=== PATIENT | female | born 1985 | race Caucasian/White ===

== ENCOUNTER 2023-05-08 10:45 | Emergency (ER) | payer BC, MEDICAID, SELFPAY ==
[2023-05-08] VITALS (11 sets, daily range): BP systolic 102–144; BP diastolic 56–63; PULSE 62–81; RESP 13–24; TEMP 36.9–38.8; O2SAT 10–98; BMI 26.6
[2023-05-08 11:22] LABS: Basophils Percent Auto 0.3 % (0.2-2.0); Eosinophils Percent Auto 0.3 % (0.9-7.0); Hematocrit 41.2 % (36.0-48.0); Hemoglobin 14.1 g/dL (12.0-16.0); Immature Granulocytes Abs Auto 0.02 10^3/uL (0.00-0.03); Immature Granulocytes Pct Auto 0.3 % (0.0-0.5); Lymphocytes Absolute Auto 0.3 10^3/uL (1.2-3.8); Lymphocytes Percent Auto 4.6 % (20.5-60.0); Mean Corpuscular HGB Conc 34.2 g/dL (29.9-35.2); Mean Corpuscular Hemoglobin 31.2 pg (26.7-34.0); Mean Corpuscular Volume 91.2 fL (81.0-99.0); Mean Platelet Volume 9.1 fL (9.5-13.5); Monocytes Absolute Auto 0.3 10^3/uL (0.3-0.8); Monocytes Percent Auto 4.3 % (1.7-12.0); Neutrophils Absolute Auto 6.7 10^3/uL (1.4-6.5); Neutrophils Percent Auto 90.2 % (43.0-75.0); Platelet Count 242 10^3/uL (150-450); Red Blood Count 4.52 10^6/uL (4.20-5.40); Red Cell Distribution Width 12.3 % (11.0-15.0); White Blood Count 7.5 10^3/uL (4.0-11.0)
[2023-05-08] MEDS: 0.9 % SODIUM CHLORIDE 1,000 ML 999 ML IV (11:24)
[2023-05-08] MEDS: ONDANSETRON PF 4 MG/2 ML VIAL IV (11:24)
[2023-05-08 11:48] LABS: Alanine Aminotransferase 33 U/L (14-59); Albumin Globulin Ratio 0.9; Albumin Level 3.4 g/dL (3.4-5.0); Alkaline Phosphatase 50 U/L (46-116); Aspartate Amino Transferase 20 U/L (15-37); BUN Creatinine Ratio 16.4; Bilirubin Total 0.4 mg/dL (0.2-1.0); Calcium 8.6 mg/dL (8.5-10.1); Carbon Dioxide 22.8 mmol/L (21.0-32.0); Chloride 104 mmol/L (98-107); Estimated GFR (African America >60 (>=60); Estimated GFR (Non-African Ame >60 (>=60); Globulin 3.9 g/dL; Glucose 101 mg/dL (74-106); Potassium 3.8 mmol/L (3.5-5.1); Sodium 140 mmol/L (136-145); Total Protein 7.3 g/dL (6.4-8.2)
--- NOTE | 2023-05-08 12:17 | ED_ITS ---
HPI - General Adult General Chief complaint: Nausea/Vomiting/Diarrhea Stated complaint: MOUTH INFECTION, DIARRHEA, ALL OVER BODY PAIN Time Seen by Provider: 05/08/23 11:07 Source: patient Mode of arrival: Wheelchair Limitations: no limitations History of Present Illness HPI narrative: Patient is a 38-year-old female who is presenting with chief complaint of nausea, vomiting, diarrhea the started at 1:00 this morning. Patient's sister is at bedside. 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 Patient was working yesterday. Patient did not go to work today, she didn't work tomorrow as well. Patient has no headache, not lightheaded or dizzy. No chest pain or shortness of breath. Patient states that she is not . Patient has no urinary frequency, history of burning. Patient has had loose stools starting this morning. The sick contacts that she is aware of. No other acute complaints. . All systems are negative except as noted/marked. All systems reviewed and otherwise negative. . Nurses note and vital signs reviewed and patient is not hypoxic. General: The patient appears well and in no apparent distress. Patient is resting comfortably on cart. Patient is not toxic, lethargic, or listless Skin: Warm, dry, no pallor noted. There is no rash noted. No petechiae, purpura. Head: Normocephalic, atraumatic Eye: Normal conjunctiva, no drainage, EOMI. PERRL Ears, Nose, Mouth, and Throat: oral mucosa is moist. Nares patent. Mouth without vesicles. Cardiovascular: Regular Rate and Rhythm, no murmur, gallop, rub Respiratory: Patient is in no distress, no accessory muscle use, lungs are clear to auscultation, no wheezing, rales or rhonchi Back: non-tender, no CVA tenderness bilaterally to percussion. No CT LS midline pain GI: soft, Mild diffuse tenderness to palpation, no masses appreciated. No rebound, guarding, or rigidity noted. No flank pain bilateral, No distention. No peritoneal signs, no flank pain bilateral. Musculoskeletal: Patient has full range of motion of all of the extremities, no motor, sensory, or focal neurological deficits Neurological: A&O x3, normal speech Psychiatric: Cooperative Related Data Home Medications Medication Instructions Recorded Confirmed flecainide 150 mg tablet 150 mg PO Q12H 05/08/23 05/08/23 metoprolol succinate 50 mg 25 mg PO Q12H 05/08/23 05/08/23 tablet,extended release 24 hr norethindrone 1 mg-ethinyl 1 tab PO DAILY 05/08/23 05/08/23 estradiol 20 mcg (21)-iron 75 mg (7) tablet (11/09 (28)) Previous Rx's Medication Instructions Recorded dicyclomine 20 mg tablet 20 mg PO BID PRN abdominal pain #7 05/08/23 tabs ondansetron 4 mg disintegrating 4 mg PO Q8H PRN nausea and 05/08/23 tablet vomiting 3 days #7 tabs Allergies Allergy/AdvReac Type Severity Reaction Status Date / Time diphenhydramine Allergy Severe Swelling Verified 05/08/23 10:56 [From Harry] of the Eye [facility] Social History Smoking status: Heavy tobacco smoker Exam Constitutional Vital Signs, click to edit/add: Last Vital Signs Temp 98.4 F 05/08/23 10:52 Pulse 73 05/08/23 12:15 Resp 13 05/08/23 12:15 BP 102/56 L 05/08/23 12:22 Pulse Ox 98 05/08/23 12:22 O2 Del Method Room Air 05/08/23 10:52 Course Vital Signs Vital signs: Vital Signs Temperature 98.4 F 05/08/23 10:52 Pulse Rate 81 05/08/23 10:52 Respiratory Rate 20 05/08/23 10:52 Blood Pressure 144/63 H 05/08/23 10:52 Pulse Oximetry 10 L 05/08/23 10:52 Oxygen Delivery Method Room Air 05/08/23 10:52 Temperature 98.4 F 05/08/23 10:52 Pulse Rate 73 05/08/23 12:15 Respiratory Rate 13 05/08/23 12:15 Blood Pressure 102/56 L 05/08/23 12:22 Pulse Oximetry 98 05/08/23 12:22 Oxygen Delivery Method Room Air 05/08/23 10:52 Medical Decision Making MDM Narrative Medical decision making narrative: Patient feels better after 1 L of IV fluids and IV Zofran. Patient will be given a work note for today and tomorrow. Patient was sent on prescription for Zofran and Bentyl. Patient will continue increase fluids. Patient was educated on appendicitis and gallbladder disease. If patient develops intractable nausea, vomiting, pain, or any other acute complaints, Patient will return back to the ER.. No questions at discharge Lab Data Lab results reviewed: Yes I reviewed the patient's lab results Labs: Lab Results 05/08/23 05/08/23 Range/Units 11:00 12:20 WBC 7.5 (4.0-11.0) 10^3/uL RBC 4.52 (4.20-5.40) 10^6/uL Hgb 14.1 (12.0-16.0) g/dL Hct 41.2 (36.0-48.0) % MCV 91.2 (81.0-99.0) fL MCH 31.2 (26.7-34.0) pg MCHC 34.2 (29.9-35.2) g/dL RDW 12.3 (11.0-15.0) % Plt Count 242 (150-450) 10^3/uL MPV 9.1 L (9.5-13.5) fL Neut % (Auto) 90.2 H (43.0-75.0) % Lymph % (Auto) 4.6 L (20.5-60.0) % [place] % (Auto) 4.3 (1.7-12.0) % Eos % (Auto) 0.3 L (0.9-7.0) % Baso % (Auto) 0.3 (0.2-2.0) % Neut # (Auto) 6.7 H (1.4-6.5) 10^3/uL Lymph # (Auto) 0.3 L (1.2-3.8) 10^3/uL [place] # (Auto) 0.3 (0.3-0.8) 10^3/uL Eos # (Auto) 0.0 (0.0-0.7) 10^3/uL Baso # (Auto) 0.0 (0.0-0.1) 10^3/uL Abs Immat Gran (auto) 0.02 (0.00-0.03) 10^3/uL Imm/Tot Granulo (auto) 0.3 (0.0-0.5) % Sodium 140 (136-145) mmol/L Potassium 3.8 (3.5-5.1) mmol/L Chloride 104 (98-107) mmol/L Carbon Dioxide 22.8 (21.0-32.0) mmol/L Anion Gap 17.0 BUN 11.0 (7.0-18.0) mg/dL Creatinine 0.67 (0.55-1.02) mg/dL Est GFR ( Amer) >60 (>=60) Est GFR (Non-Af Amer) >60 (>=60) BUN/Creatinine Ratio 16.4 Glucose 101 (74-106) mg/dL Calcium 8.6 (8.5-10.1) mg/dL Total Bilirubin 0.4 (0.2-1.0) mg/dL AST 20 (15-37) U/L ALT 33 (14-59) U/L Alkaline Phosphatase 50 (46-116) U/L Total Protein 7.3 (6.4-8.2) g/dL Albumin 3.4 (3.4-5.0) g/dL Globulin 3.9 g/dL Albumin/Globulin Ratio 0.9 Lipase 65.0 L (73.0-393.0) U/L Urine Color Yellow (YELLOW) Urine Clarity Clear (CLEAR) Urine pH 5.5 (5.0-9.0) Ur Specific [place] >=1.030 A (1.005-1.025) Urine Protein Negative (NEG/TRACE) mg/dL Urine Glucose (UA) Negative (NEGATIVE) mg/dL Urine Ketones 15 A (NEGATIVE) mg/dL Urine Occult Blood Negative (NEGATIVE) Urine Nitrite Negative (NEGATIVE) Urine Bilirubin Negative (NEGATIVE) Urine Urobilinogen 0.2 (0.2-1.0) EU/dL Ur Leukocyte Esterase Negative (NEGATIVE) Urine RBC 0-2 (0-2) #/HPF Urine WBC 0-2 A (NONE SEEN) #/HPF Ur Squamous Epith Cells Moderate A (NONE/RARE) #/LPF Urine Crystals None seen (None Seen) #/HPF Urine Bacteria Moderate A (NONE SEEN) #/HPF Urine Casts None seen (NONE SEEN) #/LPF Urine Mucus None seen (NONE SEEN) Urine cultures pending Discharge Plan Discharge Chief Complaint: Nausea/Vomiting/Diarrhea Clinical Impression: Vomiting and diarrhea, Dehydration Patient Disposition: Home, Self-Care Prescriptions / Home Meds: New ondansetron 4 mg tablet,disintegrating 4 mg PO Q8H PRN (Reason: nausea and vomiting) 3 Days Qty: 7 0RF dicyclomine 20 mg tablet 20 mg PO BID PRN (Reason: abdominal pain) Qty: 7 0RF No Action flecainide 150 mg tablet 150 mg PO Q12H metoprolol succinate 50 mg tablet extended release 24 hr 25 mg PO Q12H norethindrone-e.estradiol-iron [Junel FE 11/09 (28)] 1 mg-20 mcg (21)/75 mg (7) tablet 1 tab PO DAILY Instructions: Dehydration (ED), Acute Nausea and Vomiting (ED), Acute Diarrhea (ED) Additional Instructions: Continue increase fluids at home, including Gatorade, prior to her water. Use Zofran and Bentyl as needed. Work note given Stand Alone Forms: Work/School Release, Portal Instructions Referrals: Physician,Non-Staff, MD [Primary Care Provider] - 1 week
[2023-05-08 12:41] LABS: Bilirubin Urine NEGATIVE (NEGATIVE); Blood Urine NEGATIVE (NEGATIVE); Clarity Urine CLEAR (CLEAR); Color Urine YELLOW (YELLOW); Glucose Urine UA NEGATIVE (NEGATIVE); Ketones Urine 15 mg/dL (NEGATIVE); Leukocyte Esterase Urine NEGATIVE (NEGATIVE); Nitrite Urine NEGATIVE (NEGATIVE); Protein Urine NEGATIVE (NEG/TRACE); Specific Gravity Urine >=1.030 (1.005-1.025); Urobilinogen Urine 0.2 EU/dL (0.2-1.0); pH Urine 5.5 (5.0-9.0)
[2023-05-08 12:59] LABS: Bacteria Urine MODERATE #/HPF (NONE SEEN); Cast Seen? NONE SEEN #/LPF (NONE SEEN); Crystals Seen? None Seen #/HPF (None Seen); Mucus Urine NONE SEEN (NONE SEEN); RBC Urine 0-2 #/HPF (0-2); Squamous Epithelial Cell Urine MODERATE #/LPF (NONE/RARE); WBC Urine 0-2 #/HPF (NONE SEEN)
== END 2023-05-08 13:54 | disposition home or self-care (01) ==
PROVIDERS: Emergency Provider Emergency Medicine
DX: E86.0 Dehydration (principal); R19.7 Diarrhea, unspecified; R11.10 Vomiting, unspecified; Z79.899 Other long term (current) drug therapy; F17.210 Nicotine dependence, cigarettes, uncomplicated
CPT/HCPCS: 36415; 80053; 81001; 83690; 85025; 87086; 96374; 99284

== ENCOUNTER 2023-05-28 17:07 | Emergency (ER) | payer BC, MEDICAID, SELFPAY ==
[2023-05-28 17:10] VITALS: BP 114/63; PULSE 56; RESP 20; TEMP 36.9; O2SAT 100; BMI 25.7
--- NOTE | 2023-05-28 17:29 | ED.DENTAL1 ---
HPI - Dental/Oral General Chief complaint: Dental/Oral Stated complaint: DENTAL PAIN Time Seen by Provider: 05/28/23 17:10 Source: patient Mode of arrival: walk-in Limitations: no limitations History of Present Illness HPI Narrative: patient is a 38-year-old female with a history of dental caries who presents to the emergency department for pain in the teeth of the maxilla for the last month. Patient was seen in this emergency department for an unrelated complaint two weeks ago that does not appear to have mentioned this at that time. She denies any injury or trauma to the teeth. She believes that she may have had drainage from the teeth because she has had a foul taste in her mouth. She denies fevers, vomiting. She is not concerned for . Related Data Home Medications Medication Instructions Recorded Confirmed flecainide 150 mg tablet 150 mg PO Q12H 05/08/23 05/08/23 metoprolol succinate 50 mg 25 mg PO Q12H 05/08/23 05/08/23 tablet,extended release 24 hr norethindrone 1 mg-ethinyl 1 tab PO DAILY 05/08/23 05/08/23 estradiol 20 mcg (21)-iron 75 mg (7) tablet (11/09 (28)) Previous Rx's Medication Instructions Recorded dicyclomine 20 mg tablet 20 mg PO BID PRN abdominal pain #7 05/08/23 tabs ondansetron 4 mg disintegrating 4 mg PO Q8H PRN nausea and 05/08/23 tablet vomiting 3 days #7 tabs amoxicillin 500 mg capsule 500 mg PO TID 10 days #30 caps 05/28/23 ketorolac 10 mg tablet 10 mg PO TID PRN pain #10 tabs 05/28/23 promethazine 25 mg tablet 25 mg PO Q6H PRN nausea and 05/28/23 vomiting #12 tabs Allergies Allergy/AdvReac Type Severity Reaction Status Date / Time diphenhydramine Allergy Severe Swelling Verified 05/08/23 10:56 [From Harry] of the Eye Review of Systems ROS Constitutional Denies: fever Ears, nose, mouth, and throat Denies: throat pain Cardiovascular Denies: chest pain Respiratory Denies: shortness of breath or cough Gastrointestinal Denies: nausea or vomiting Musculoskeletal Denies: back pain or neck pain Integumentary/Breast Denies: rash Neurological Denies: headache PFSH [facility] Social History Smoking status: Former smoker Exam Narrative Exam Narrative: Gen.: Awake, alert, in no distress Head: Normocephalic, atraumatic ENT: Moist mucous membranes, all of the teeth in the maxilla are absent except for tooth #9, tooth #10 and tooth #11. Tooth #10 and tooth #11 with significant dental caries and erosion to the gumline. No visible dental abscess noted. No significant dental caries of the mandible, no redness or swelling under the tongue. Clear speech, no trismus or drooling. Respiratory: No respiratory distress Extremities: Moves extremities equally Psych: Normal mood and affect Neuro: No focal neuro deficit Skin: Warm, dry, intact Constitutional Vital Signs, click to edit/add: Last Vital Signs Temp 98.4 F 05/28/23 17:10 Pulse 56 L 05/28/23 17:10 Resp 20 05/28/23 17:10 BP 114/63 05/28/23 17:10 Pulse Ox 100 05/28/23 17:10 O2 Del Method Room Air 05/28/23 17:10 Course Vital Signs Vital signs: Vital Signs Temperature 98.4 F 05/28/23 17:10 Pulse Rate 56 L 05/28/23 17:10 Respiratory Rate 20 05/28/23 17:10 Blood Pressure 114/63 05/28/23 17:10 Pulse Oximetry 100 05/28/23 17:10 Oxygen Delivery Method Room Air 05/28/23 17:10 Temperature 98.4 F 05/28/23 17:10 Pulse Rate 56 L 05/28/23 17:10 Respiratory Rate 20 05/28/23 17:10 Blood Pressure 114/63 05/28/23 17:10 Pulse Oximetry 100 05/28/23 17:10 Oxygen Delivery Method Room Air 05/28/23 17:10 MDM - Dental/Oral MDM Narrative Medical decision making narrative: exam is consistent with dental pain, dental caries. Patient placed on an antibiotic if she states her pain seems to be getting worse in the last several days. No evidence of Shivam angina on exam. Vital signs stable and the patient is discharged home with topical analgesia, NSAIDs and antibiotics. She is given a referral to other dental clinics as she states her dentist cannot see her for several months. Return to the Emergency Room if symptoms change or worsen. Medical Records Attestation: I reviewed the patient's medical records. Discharge Plan Discharge Chief Complaint: Dental/Oral Clinical Impression: Dental caries, Toothache Patient Disposition: Home, Self-Care Time of Disposition Decision: 17:21 Condition: Good Prescriptions / Home Meds: New amoxicillin 500 mg capsule 500 mg PO TID 10 Days Qty: 30 0RF ketorolac 10 mg tablet 10 mg PO TID PRN (Reason: pain) Qty: 10 0RF promethazine 25 mg tablet 25 mg PO Q6H PRN (Reason: nausea and vomiting) Qty: 12 0RF No Action flecainide 150 mg tablet 150 mg PO Q12H metoprolol succinate 50 mg tablet extended release 24 hr 25 mg PO Q12H norethindrone-e.estradiol-iron [11/09 (28)] 1 mg-20 mcg (21)/75 mg (7) tablet 1 tab PO DAILY ondansetron 4 mg tablet,disintegrating 4 mg PO Q8H PRN (Reason: nausea and vomiting) 3 Days Qty: 7 0RF dicyclomine 20 mg tablet 20 mg PO BID PRN (Reason: abdominal pain) Qty: 7 0RF Instructions: Cavity Preventive (For the teeth or gums), Toothache (ED) Stand Alone Forms: Portal Instructions Referrals: Physician,Non-Staff, MD [Primary Care Provider] - 1 week
[2023-05-28] MEDS: BENZOCAINE 30 ML, lidocaine HCL 15 ML MM (17:37)
== END 2023-05-28 17:39 | disposition home or self-care (01) ==
PROVIDERS: Emergency Provider Emergency Medicine
DX: K02.9 Dental caries, unspecified (principal); K08.89 Other specified disorders of teeth and supporting structures; Z79.899 Other long term (current) drug therapy
CPT/HCPCS: 99283

== ENCOUNTER 2023-06-23 06:39 | Emergency (ER) | payer BC, MEDICAID, SELFPAY ==
[2023-06-23 06:43] VITALS: BP 124/75; PULSE 63; RESP 16; TEMP 36.6; O2SAT 99; BMI 26.2
[2023-06-23 07:12] LABS: Bilirubin Urine NEGATIVE (NEGATIVE); Blood Urine MODERATE (NEGATIVE); Clarity Urine SL CLOUDY (CLEAR); Color Urine LT. YELLOW (YELLOW); Glucose Urine UA NEGATIVE (NEGATIVE); Ketones Urine NEGATIVE (NEGATIVE); Leukocyte Esterase Urine MODERATE (NEGATIVE); Nitrite Urine NEGATIVE (NEGATIVE); Protein Urine NEGATIVE (NEG/TRACE); Specific Gravity Urine 1.025 (1.005-1.025); Urobilinogen Urine 0.2 EU/dL (0.2-1.0)
[2023-06-23 07:15] LABS: Urine Microscopic Indicated YES
[2023-06-23 07:21] LABS: WBC Urine 20-50 #/HPF (NONE SEEN)
[2023-06-23 07:22] LABS: Bacteria Urine SMALL #/HPF (NONE SEEN); Cast Seen? NONE SEEN #/LPF (NONE SEEN); Crystals Seen? None Seen #/HPF (None Seen); Mucus Urine NONE SEEN (NONE SEEN); Squamous Epithelial Cell Urine RARE #/LPF (NONE/RARE); Urine Culture Indicated YES
--- NOTE | 2023-06-23 07:25 | ED_ITS ---
HPI - Female Genitourinary General Chief complaint: Urogenital-Female Stated complaint: UTI Time Seen by Provider: 06/23/23 06:55 Source: patient Mode of arrival: walk-in Limitations: no limitations History of Present Illness HPI Narrative: patient presents with urinary symptoms - burning/dysuria, sometimes passing small amounts, increased frequency - indicative of potential urinary tract infection. Patient was diagnosed with UTI and placed on antibiotics a few weeks ago. No fever or chills, No vomiting or diarrhea. No flank pain. Related Data Home Medications Medication Instructions Recorded Confirmed flecainide 150 mg tablet 150 mg PO Q12H 05/08/23 06/23/23 metoprolol succinate 50 mg 25 mg PO Q12H 05/08/23 06/23/23 tablet,extended release 24 hr norethindrone 1 mg-ethinyl 1 tab PO DAILY 05/08/23 06/23/23 estradiol 20 mcg (21)-iron 75 mg (7) tablet (11/09 (28)) Previous Rx's Medication Instructions Recorded dicyclomine 20 mg tablet 20 mg PO BID PRN abdominal pain #7 05/08/23 tabs ondansetron 4 mg disintegrating 4 mg PO Q8H PRN nausea and 05/08/23 tablet vomiting 3 days #7 tabs amoxicillin 500 mg capsule 500 mg PO TID 10 days #30 caps 05/28/23 ketorolac 10 mg tablet 10 mg PO TID PRN pain #10 tabs 05/28/23 promethazine 25 mg tablet 25 mg PO Q6H PRN nausea and 05/28/23 vomiting #12 tabs ciprofloxacin HCl 500 mg tablet 500 mg PO BID #14 tabs 06/23/23 (Cipro) phenazopyridine 200 mg tablet 200 mg PO Q8H PRN dysuria #9 tabs 06/23/23 (Pyridium) Allergies Allergy/AdvReac Type Severity Reaction Status Date / Time diphenhydramine Allergy Severe Swelling Verified 06/23/23 06:53 [From Harry] of the Eye [facility] Medical History (Updated 06/23/23 @ 07:41 by Artie Caraballo) Surgical History (Updated 06/23/23 @ 06:54 by Jaskaran Rajput) Social History Smoking status: Former smoker Exam Narrative Exam Narrative: Nurses notes and vital signs reviewed and patient is not hypoxic. afebrile General: Well-appearing and in no apparent distress. Skin: Warm, dry, no pallor noted. No rash. Head: Normocephalic, atraumatic. Eye: Pupils are equal, round and EOMI. No scleral icterus. Cardiovascular: Regular Rate and Rhythm without murmur, gallop or rub. Respiratory: No accessory muscle use or respiratory distress. Lungs are clear to auscultation, no wheezing, rales or rhonchi Back: No CVA tenderness Musculoskeletal: normal ROM GI: Abdomen is soft, non-distended. Normal bowel sounds. Mild suprapubic tenderness to palpation. No rebound, guarding, or rigidity noted. Neurological: A&O x4. No cranial nerve dysfunction observed. No truncal ataxia. Moves all extremities. Sensation intact. Psychiatric: Cooperative and interactive. Normal mood and affect. Constitutional Vital Signs, click to edit/add: Last Vital Signs Temp 98 F 06/23/23 06:43 Pulse 63 06/23/23 06:43 Resp 16 06/23/23 06:43 BP 124/75 06/23/23 06:43 Pulse Ox 99 06/23/23 06:43 O2 Del Method Room Air 06/23/23 06:43 Course Vital Signs Vital signs: Vital Signs Temperature 98 F 06/23/23 06:43 Pulse Rate 63 06/23/23 06:43 Respiratory Rate 16 06/23/23 06:43 Blood Pressure 124/75 06/23/23 06:43 Pulse Oximetry 99 06/23/23 06:43 Oxygen Delivery Method Room Air 06/23/23 06:43 Temperature 98 F 06/23/23 06:43 Pulse Rate 63 06/23/23 06:43 Respiratory Rate 16 06/23/23 06:43 Blood Pressure 124/75 06/23/23 06:43 Pulse Oximetry 99 06/23/23 06:43 Oxygen Delivery Method Room Air 06/23/23 06:43 MDM - Female Genitourinary MDM Narrative Medical decision making narrative: Urine sent for testing. She does not have an acute urinary tract infection. Results explained to the patient she was discharged home with a prescription for ciprofloxacin and for Pyridium. She is to follow-up with her primary care provider. We will evaluate the culture and if there is resistance to ciprofloxacin, we will notify her of the need for change. Lab Data Attestation: I reviewed the patient's lab results. Labs: Lab Results 06/23/23 Range/Units 06:45 Urine Color Lt. yellow (YELLOW) Urine Clarity Sl cloudy (CLEAR) Urine pH 6.0 (5.0-9.0) Ur Specific [place] 1.025 (1.005-1.025) Urine Protein Negative (NEG/TRACE) mg/dL Urine Glucose (UA) Negative (NEGATIVE) mg/dL Urine Ketones Negative (NEGATIVE) mg/dL Urine Occult Blood Moderate A (NEGATIVE) Urine Nitrite Negative (NEGATIVE) Urine Bilirubin Negative (NEGATIVE) Urine Urobilinogen 0.2 (0.2-1.0) EU/dL Ur Leukocyte Esterase Moderate A (NEGATIVE) Urine RBC 10-20 A (0-2) #/HPF Urine WBC 20-50 A (NONE SEEN) #/HPF Ur Squamous Epith Cells Rare (NONE/RARE) #/LPF Urine Crystals None seen (None Seen) #/HPF Urine Bacteria Small A (NONE SEEN) #/HPF Urine Casts None seen (NONE SEEN) #/LPF Urine Mucus None seen (NONE SEEN) Ur Culture Indicated? Yes Discharge Plan Discharge Chief Complaint: Urogenital-Female Clinical Impression: Urinary tract infection Patient Disposition: Home, Self-Care Time of Disposition Decision: 07:41 Prescriptions / Home Meds: New ciprofloxacin HCl [Cipro] 500 mg tablet 500 mg PO BID Qty: 14 0RF phenazopyridine [Pyridium] 200 mg tablet 200 mg PO Q8H PRN (Reason: dysuria) Qty: 9 0RF No Action amoxicillin 500 mg capsule 500 mg PO TID 10 Days Qty: 30 0RF ketorolac 10 mg tablet 10 mg PO TID PRN (Reason: pain) Qty: 10 0RF promethazine 25 mg tablet 25 mg PO Q6H PRN (Reason: nausea and vomiting) Qty: 12 0RF flecainide 150 mg tablet 150 mg PO Q12H metoprolol succinate 50 mg tablet extended release 24 hr 25 mg PO Q12H norethindrone-e.estradiol-iron [Junel FE 11/09 (28)] 1 mg-20 mcg (21)/75 mg (7) tablet 1 tab PO DAILY ondansetron 4 mg tablet,disintegrating 4 mg PO Q8H PRN (Reason: nausea and vomiting) 3 Days Qty: 7 0RF dicyclomine 20 mg tablet 20 mg PO BID PRN (Reason: abdominal pain) Qty: 7 0RF Instructions: Urinary Tract Infection in Women (ED) Stand Alone Forms: Portal Instructions Referrals: Physician,Non-Staff, MD [Primary Care Provider] - 1 week
== END 2023-06-23 07:49 | disposition home or self-care (01) ==
PROVIDERS: Emergency Provider Emergency Medicine
DX: N39.0 Urinary tract infection, site not specified (principal); Z79.899 Other long term (current) drug therapy; Z87.891 Personal history of nicotine dependence
CPT/HCPCS: 81001; 87086; 87150; 87186; 99283

== ENCOUNTER 2023-08-08 16:06 | Emergency (ER) | payer BC, MEDICAID, SELFPAY ==
[2023-08-08 16:11] VITALS: BP 130/74; PULSE 74; RESP 20; TEMP 36.6; O2SAT 100; BMI 27.6
--- NOTE | 2023-08-08 16:22 | ED.URI1 ---
HPI - URI/Sore Throat General Chief Complaint: Upper Respiratory Infection Stated Complaint: congestion, sob Time Seen by Provider: 08/08/23 16:10 Source: patient Limitations: no limitations History of Present Illness HPI Narrative: 38-year-old female presents for a cough. She's had it for a few days and she is coughing up some thick brown to yellow phlegm. No hemoptysis or fever. She does not have history of asthma. She smokes occasionally. Related Data Home Medications Medication Instructions Recorded Confirmed flecainide 150 mg tablet 150 mg PO Q12H 05/08/23 06/23/23 metoprolol succinate 50 mg 25 mg PO Q12H 05/08/23 06/23/23 tablet,extended release 24 hr norethindrone 1 mg-ethinyl 1 tab PO DAILY 05/08/23 06/23/23 estradiol 20 mcg (21)-iron 75 mg (7) tablet (11/09 (28)) Previous Rx's Medication Instructions Recorded dicyclomine 20 mg tablet 20 mg PO BID PRN abdominal pain #7 05/08/23 tabs ondansetron 4 mg disintegrating 4 mg PO Q8H PRN nausea and 05/08/23 tablet vomiting 3 days #7 tabs amoxicillin 500 mg capsule 500 mg PO TID 10 days #30 caps 05/28/23 ketorolac 10 mg tablet 10 mg PO TID PRN pain #10 tabs 05/28/23 promethazine 25 mg tablet 25 mg PO Q6H PRN nausea and 05/28/23 vomiting #12 tabs ciprofloxacin HCl 500 mg tablet 500 mg PO BID #14 tabs 06/23/23 (Cipro) phenazopyridine 200 mg tablet 200 mg PO Q8H PRN dysuria #9 tabs 06/23/23 (Pyridium) benzonatate 100 mg capsule 100 mg PO TID PRN cough #20 caps 08/08/23 sulfamethoxazole 800 1 tab PO BID 10 days #20 tabs 08/08/23 mg-trimethoprim 160 mg tablet (Bactrim DS) Allergies Allergy/AdvReac Type Severity Reaction Status Date / Time diphenhydramine Allergy Severe Swelling Verified 06/23/23 06:53 [From Benadernestinal] of the Eye Review of Systems ROS Narrative A ten point review of systems is negative except as noted above. PFSH PFSH Medical History (Updated 08/08/23 @ 17:24 by Wade Rojas MD) Cardiac arrhythmia ?I49.9 - Cardiac arrhythmia, unspecified (ICD-10) Heart murmur ?R01.1 - Cardiac murmur, unspecified (ICD-10) Surgical History (Updated 06/23/23 @ 06:54 by Jaskaran Rajput) History of radiofrequency ablation procedure for cardiac arrhythmia ?Z98.890 - Other specified postprocedural states (ICD-10) Social History Smoking status: Light tobacco smoker Exam Narrative Exam Narrative: Nurses note and vital signs reviewed and patient is not hypoxic. General: The patient appears well and in no apparent distress. Patient is resting comfortably on cart. Skin: Warm, dry, no pallor noted. There is no rash noted. Head: Normocephalic, atraumatic Eye: Normal conjunctiva, no drainage Ears, Nose, Mouth, and Throat: oral mucosa is moist. Nares patent. Cardiovascular: Regular Rate and Rhythm Respiratory: Patient is in no distress, no accessory muscle use, lungs are clear to auscultation, no wheezing, rales or rhonchi Back: non-tender GI: soft and nontender Musculoskeletal: The patient has no evidence of calf tenderness, no pitting edema, symmetrical pulses noted bilaterally Neurological: A&O, normal speech Psychiatric: Cooperative Constitutional Vital Signs, click to edit/add: Last Vital Signs Temp 98 F 08/08/23 16:11 Pulse 74 08/08/23 16:11 Resp 20 08/08/23 16:11 BP 130/74 08/08/23 16:11 Pulse Ox 100 08/08/23 16:11 O2 Del Method Room Air 08/08/23 16:11 Course Vital Signs Vital signs: Vital Signs Temperature 98 F 08/08/23 16:11 Pulse Rate 74 08/08/23 16:11 Respiratory Rate 20 08/08/23 16:11 Blood Pressure 130/74 08/08/23 16:11 Pulse Oximetry 100 08/08/23 16:11 Oxygen Delivery Method Room Air 08/08/23 16:11 Temperature 98 F 08/08/23 16:11 Pulse Rate 74 08/08/23 16:11 Respiratory Rate 20 08/08/23 16:11 Blood Pressure 130/74 08/08/23 16:11 Pulse Oximetry 100 08/08/23 16:11 Oxygen Delivery Method Room Air 08/08/23 16:11 MDM - URI/Sore Throat MDM Narrative Medical decision making narrative: chest x-ray is negative per radiologist and she's treated with Bactrim and Tessalon. Treatment diagnosis and follow-up were discussed with the patient. Differential Diagnosis Differential diagnosis: Likely upper respiratory infection, viral infection and other (pneumonia) Imaging Data Chest x-ray: Radiologist's impression: Procedure: XR chest 1V EXAMINATION: XR chest 1V HISTORY: Cough COMPARISON: Chest x-ray 11/29/2012 TECHNIQUE: Portable chest FINDINGS: The lung parenchyma is free of consolidation or infiltrate. No pneumothorax or pleural effusion. The cardiac, mediastinal and hilar contours are normal. The visualized osseous structures exhibit no gross abnormality. IMPRESSION: No acute cardiopulmonary abnormality. Electronically authenticated by: JL HERNANDES Date: 08/08/2023 16: Discharge Plan Discharge Chief Complaint: Upper Respiratory Infection Clinical Impression: Upper respiratory infection Patient Disposition: Home, Self-Care Time of Disposition Decision: 17:23 Condition: Good Mode of Transportation: Private Vehicle Prescriptions / Home Meds: New sulfamethoxazole-trimethoprim [Bactrim DS] 800-160 mg tablet 1 tab PO BID 10 Days Qty: 20 0RF benzonatate 100 mg capsule 100 mg PO TID PRN (Reason: cough) Qty: 20 0RF No Action amoxicillin 500 mg capsule 500 mg PO TID 10 Days Qty: 30 0RF ketorolac 10 mg tablet 10 mg PO TID PRN (Reason: pain) Qty: 10 0RF promethazine 25 mg tablet 25 mg PO Q6H PRN (Reason: nausea and vomiting) Qty: 12 0RF ciprofloxacin HCl [Cipro] 500 mg tablet 500 mg PO BID Qty: 14 0RF phenazopyridine [Pyridium] 200 mg tablet 200 mg PO Q8H PRN (Reason: dysuria) Qty: 9 0RF flecainide 150 mg tablet 150 mg PO Q12H metoprolol succinate 50 mg tablet extended release 24 hr 25 mg PO Q12H norethindrone-e.estradiol-iron [Junel FE 11/09 (28)] 1 mg-20 mcg (21)/75 mg (7) tablet 1 tab PO DAILY ondansetron 4 mg tablet,disintegrating 4 mg PO Q8H PRN (Reason: nausea and vomiting) 3 Days Qty: 7 0RF dicyclomine 20 mg tablet 20 mg PO BID PRN (Reason: abdominal pain) Qty: 7 0RF Instructions: Upper Respiratory Infection (ED) Stand Alone Forms: Portal Instructions Referrals: Physician,Non-Staff, MD [Primary Care Provider] - 1 week
--- NOTE | 2023-08-08 16:32 | XR_ITS ---
The [address] [address] Patient Name: KSENIA SHANKAR MRN: [id number] date: 1985 Sex: F Assigned Patient Location: ER Current Patient Location: ER Accession/Order Number: [id number] Exam Date: 08/08/2023 16:28 Report Date: 08/08/2023 16:42 At the request of: GOMEZ YARBROUGH Procedure: XR chest 1V EXAMINATION: XR chest 1V HISTORY: Cough COMPARISON: Chest x-ray 11/29/2012 TECHNIQUE: Portable chest FINDINGS: The lung parenchyma is free of consolidation or infiltrate. No pneumothorax or pleural effusion. The cardiac, mediastinal and hilar contours are normal. The visualized osseous structures exhibit no gross abnormality. XR/XR chest 1V IMPRESSION: No acute cardiopulmonary abnormality. Electronically authenticated by: JL HERNANDES Date: 08/08/2023 16:42
== END 2023-08-08 17:35 | disposition home or self-care (01) ==
PROVIDERS: Emergency Provider Emergency Medicine
DX: J06.9 Acute upper respiratory infection, unspecified (principal); Z79.899 Other long term (current) drug therapy; F17.210 Nicotine dependence, cigarettes, uncomplicated
CPT/HCPCS: 71045; 99283

== ENCOUNTER 2023-12-16 20:15 | Outpatient (REF) | payer MEDICAID, SELFPAY ==
--- OUTSIDE RECORDS SUMMARY | 2023-12-16 20:21 | XMS_ITS | CCD ---
Author Name Unknown Address [address] [place] [address] Organization [facility] Care Team Providers Care Compressor Operator Name Role Phone CAMILLA PACKER Admitting Unavailable CAMILLA PACKER Attending Unavailable DR YARIEL RIVERA Primary Care Unavailable CAMILLA PACKER Consulting Unavailable Allergies Allergy Classification Reported Allergen(s) Allergy Type Date of Onset Reaction(s) Facility (1 source) diphenhydrAMINE Drug Allergy [address] [facility] Encounters Encounter Date Encounter Type Care Provider Facility Start: 11-05-2022 End: 11-05-2022 ambulatory CAMILLA PACKER Facility: Payers Date Payer Category Payer Unknown [id number] [id number] 1959 Unknown [id number] Summary Purpose Family History No Family History Records Found Advance Directives No Advanced Directives Records Found Additional Source Comments INFORMATION SOURCE (unrecogn ized section and content) DATE CREATED AUTHOR 11/06/2022 The [facility] FOR RECORDS PERTAINING TO PATIENTS WHO ARE OR HAVE BEEN ENROLLED IN A CHEMICAL DEPENDENCY/SUBSTANCEABUSE PROGRAM, SOME INFORMATION MAY BE OMITTED. This clinical summary was aggregated from multiple sources. Caution should be exercised in using it in the provision of clinical care. This summary normalizes information from multiple sources, and as a consequence, information in this document may materially change the coding, format and clinical context of patient data. In addition, data may be omitted in some cases. CLINICAL DECISIONS SHOULD BE BASED ON THE PRIMARY CLINICAL RECORDS. [facility] [employer] [facility]. provides no warranty or guarantee of the accuracy or completeness of information in this document.
[2023-12-20 11:12] LABS: Age Gdln ACOG Testing Note (.); HPV Aptima Negative (Negative); IGP, Aptima HPV, rfx 16/18,45 Note (.)
== END 2023-12-16 20:16 | disposition home or self-care (01) ==
LOC: LAB 20:15
PROVIDERS: Visit Provider Obstetrics & Gynecology
DX: Z01.419 Encounter for gynecological examination (general) (routine) without abnormal findings (principal)
CPT/HCPCS: 87624; G0145

== ENCOUNTER 2023-12-26 08:50 | Outpatient (OUT) | payer SELFPAY ==
--- NOTE | 2023-12-26 08:54 | US_ITS ---
[address] [address] Patient Name: KSENIA SHANKAR MRN: [id number] date: 1985 Sex: F Assigned Patient Location: [facility] Current Patient Location: [facility] Accession/Order Number: [id number] Exam Date: 12/26/2023 08:55 Report Date: 12/26/2023 11:39 At the request of: YARIEL RIVERA Procedure: US pelvis w/ transvaginal EXAMINATION: US pelvis w/ transvaginal HISTORY: PELVIC PAIN ; intermittent pelvic pain for 2 months COMPARISON: No relevant comparison available. TECHNIQUE: Transabdominal and/or transvaginal sonographic examination was performed as indicated by examination type. FINDINGS: UTERUS: Normal size and appearance. Uterus size: ENDOMETRIUM: Normal homogeneous appearance. Endometrial thickness: 6 mm RIGHT OVARY: Normal size and appearance. Duplex Doppler demonstrates normal waveform and flow; resistive index 0.6. Ovary size: 2.5 x 3.2 x 2.3 cm LEFT OVARY: Normal size and appearance. Duplex Doppler demonstrates normal waveform and flow; resistive index 0.7. Ovary size: 2.1 x 1.5 x 3.4 cm CUL-DE-SAC: Unremarkable. No significant free fluid. BLADDER: Unremarkable. OTHER: None. US/US pelvis w/ transvaginal IMPRESSION: 1. No abnormal or suspicious findings to account for patient's symptoms. Electronically authenticated by: JOSE FROST Date: 12/26/2023 11:39
--- OUTSIDE RECORDS SUMMARY | 2023-12-26 09:01 | XMS_ITS | CCD ---
Author Name Unknown Address [address] [place] [address] Organization [facility] Care Team Providers Care Diesel Pile Hammer Operator Name Role Phone CAMILLA PACKER Admitting Unavailable CAMILLA PACKER Attending Unavailable DR YARIEL RIVERA Primary Care Unavailable CAMILLA PACKER Consulting Unavailable Allergies Allergy Classification Reported Allergen(s) Allergy Type Date of Onset Reaction(s) Facility (1 source) diphenhydrAMINE Drug Allergy 3 The [facility] Encounters Encounter Date Encounter Type Care Provider Facility Start: 11-05-2022 End: 11-05-2022 ambulatory CAMILLA PACKER Facility: Payers Date Payer Category Payer Unknown [id number] [id number] 1959 Unknown [id number] Summary Purpose Family History No Family History Records Found Advance Directives No Advanced Directives Records Found Additional Source Comments INFORMATION SOURCE (unrecogn ized section and content) DATE CREATED AUTHOR 11/06/2022 The [facility] FOR RECORDS PERTAINING TO PATIENTS WHO [...] BE BASED ON THE PRIMARY CLINICAL RECORDS. [facility] [employer] [facility]. provides no warranty or guarantee of the accuracy or completeness of information in this document.
== END 2023-12-26 08:51 | disposition home or self-care (01) ==
LOC: NOMS 08:51
PROVIDERS: Visit Provider Obstetrics & Gynecology
DX: R10.2 Pelvic and perineal pain (principal)
CPT/HCPCS: 76830; 76856

== ENCOUNTER 2024-01-12 00:37 | Emergency (ER) | payer SELFPAY ==
--- OUTSIDE RECORDS SUMMARY | 2024-01-12 00:43 | XMS_ITS | CCD ---
Author Organization [facility] Care Team Providers Care Hand Binder Cutter Name Role Phone CAMILLA PACKER Admitting Unavailable CAMILLA PACKER Attending Unavailable DR YARIEL RIVERA Primary Care Unavailable CAMILLA PACKER Consulting Unavailable YARIEL RIVERA Attending Unavailable Allergies Allergy Classification Reported Allergen(s) Allergy Type Date of Onset Reaction(s) Facility (1 source) diphenhydrAMINE Drug Allergy 3 The [facility] Encounters Encounter Date Encounter Type Care Provider Facility Start: 12-16-2023 End: 12-16-2023 ambulatory YARIEL RIVERA Not Available Start: 11-05-2022 End: 11-05-2022 ambulatory CAMILLA PACKER Facility: Payers Date Payer Category Payer Medicaid [id number] 1985 Unknown [id number] 1985 Unknown [id number] 1959 Unknown [id number] Summary Purpose Family History No Family History Records FoundNo Family History Records Found Advance Directives No Advanced Directives Records FoundNo Advanced Directives Records Found Additional Source Comments INFORMATION SOURCE (unrecogn ized section and content) DATE CREATED AUTHOR 11/06/2022 The [facility] DATE CREATED AUTHOR ANDRES AMANDA ATAIMEE 12/27/2023 [facility] [employer] FOR RECORDS PERTAINING TO PATIENTS WHO ARE [...] BE BASED ON THE PRIMARY CLINICAL RECORDS. [facility] [employer] [facility]. provides no warranty or guarantee of the accuracy or completeness of information in this document.
[2024-01-12 00:45] VITALS: BP 109/48; PULSE 63; RESP 18; TEMP 36.6; O2SAT 100; BMI 27.6
--- NOTE | 2024-01-12 01:06 | ED.ARRPALP1 ---
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 States she will have occ PVC but feel they are more often tonight. She is on Flecainide and metoprolol. States she woke up from sleep and felt like she was gasping for air. has felt light headed a couple of times the past couple of days. Related Data Home Medications ?Medication ?Instructions ?Recorded ?Confirmed flecainide 150 mg tablet 150 mg PO Q12H 05/08/23 01/12/24 metoprolol succinate 50 mg 25 mg PO Q12H 05/08/23 01/12/24 tablet,extended release 24 hr norethindrone 1 mg-ethinyl 1 tab PO DAILY 05/08/23 01/12/24 estradiol 20 mcg (21)-iron 75 mg (7) tablet (11/09 (28)) Allergies Allergy/AdvReac Type Severity Reaction Status Date / Time diphenhydramine Allergy Severe Swelling Verified 01/12/24 00:53 [From Benadryl] of the Eye Review of Systems ROS Status of ROS 10 or more systems reviewed and unremarkable except as noted in history and below [facility] Medical History (Updated 01/12/24 @ 19:27 by Mayco Christie MD) Cardiac arrhythmia ?I49.9 - Cardiac arrhythmia, unspecified (ICD-10) Heart murmur ?R01.1 - Cardiac murmur, unspecified (ICD-10) Surgical History (Updated 06/23/23 @ 06:54 by Jaskaran Rajput) History of radiofrequency ablation procedure for cardiac arrhythmia ?Z98.890 - Other specified postprocedural states (ICD-10) Social History Smoking status: Light tobacco smoker Exam Constitutional Vital Signs, click to edit/add: Last Vital Signs Temp 98 F 01/12/24 00:45 Pulse 63 01/12/24 00:45 Resp 18 01/12/24 00:45 BP 109/48 L 01/12/24 00:45 Pulse Ox 100 01/12/24 00:45 O2 Del Method Room Air 01/12/24 00:45 Common normals: no apparent distress, average body habitus, oriented x3, no limitations, healthy appearing, alert and well nourished [facility] Common normals: normocephalic and head/scalp atraumatic Eye Common normals: EOMs intact bilaterally and conjunctivae normal Respiratory Common normals: normal respiratory effort, no retractions and no use of accessory muscles Cardio Common normals: regular rate, regular rhythm, S1 normal heart sound and S2 normal heart sound GI Common normals: Normal to inspection, nondistended, normoactive bowel sounds present, soft to palpation and non-tender Extremity Common normals: normal to inspection Neuro Common normals: oriented x3, CN's II-XII intact bilaterally, moves all extremities and no focal motor deficits Psych Appearance: grossly normal Course Vital Signs Vital signs: Vital Signs Temperature 98 F 01/12/24 00:45 Pulse Rate 63 01/12/24 00:45 Respiratory Rate 18 01/12/24 00:45 Blood Pressure 109/48 L 01/12/24 00:45 Pulse Oximetry 100 01/12/24 00:45 Oxygen Delivery Method Room Air 01/12/24 00:45 Temperature 98 F 01/12/24 00:45 Pulse Rate 63 01/12/24 00:45 Respiratory Rate 18 01/12/24 00:45 Blood Pressure 109/48 L 01/12/24 00:45 Pulse Oximetry 100 01/12/24 00:45 Oxygen Delivery Method Room Air 01/12/24 00:45 MDM - Arrhythmia/Palpitations MDM Narrative Medical decision making narrative: patient has past history of PVC. Takes Flecainide and metoprolol. Feels PVCs more frequent tonight. monitor with unifocal PVCs. d-dimer and troponin neg. cxray clear. Patient asymptomatic other than she has palpitations related to PVCs. Discharged home and advised to contact her staffing consultant tomorrow At discharge she also complained of dental pain. Has several dental caries. Will treat with amoxicillin and recommend she follow up with her dentist Lab Data Labs: Lab Results 01/12/24 01/12/24 01/12/24 Range/Units 01:00 01:36 03:47 WBC 9.4 (4.0-11.0) 10^3/uL RBC 3.84 L (4.20-5.40) 10^6/uL Hgb 11.7 L (12.0-16.0) g/dL Hct 35.7 L (36.0-48.0) % MCV 93.0 (81.0-99.0) fL MCH 30.5 (26.7-34.0) pg MCHC 32.8 (29.9-35.2) g/dL RDW 12.2 (11.0-15.0) % Plt Count 221 (150-450) 10^3/uL MPV 9.7 (9.5-13.5) fL Neut % (Auto) 48.8 (43.0-75.0) % Lymph % (Auto) 39.0 (20.5-60.0) % [place] % (Auto) 9.2 (1.7-12.0) % Eos % (Auto) 2.3 (0.9-7.0) % Baso % (Auto) 0.5 (0.2-2.0) % Neut # (Auto) 4.6 (1.4-6.5) 10^3/uL Lymph # (Auto) 3.7 (1.2-3.8) 10^3/uL [place] # (Auto) 0.9 H (0.3-0.8) 10^3/uL Eos # (Auto) 0.2 (0.0-0.7) 10^3/uL Baso # (Auto) 0.1 (0.0-0.1) 10^3/uL Abs Immat Gran (auto) 0.02 (0.00-0.03) 10^3/uL Imm/Tot Granulo (auto) 0.2 (0.0-0.5) % D-Dimer 0.53 (<=0.59) mg/L FEU Sodium 140 (136-145) mmol/L Potassium 3.5 (3.5-5.1) mmol/L Chloride 106 (98-107) mmol/L Carbon Dioxide 24.7 (21.0-32.0) mmol/L Anion Gap 12.8 BUN 17.0 (7.0-18.0) mg/dL Creatinine 0.59 (0.55-1.02) mg/dL Est GFR ( Amer) >60 (>=60) Est GFR (Non-Af Amer) >60 (>=60) BUN/Creatinine Ratio 28.8 Glucose 98 (74-106) mg/dL Calcium 8.4 L (8.5-10.1) mg/dL Troponin I High Sens <4.0 L 4.1 (4.0-51.3) pg/mL Discharge Plan Discharge Stand Alone Forms: Portal Instructions Chief Complaint: Arrhythmia/Palpitations Clinical Impression: Frequent unifocal PVCs, Dental caries Patient Disposition: Home, Self-Care Prescriptions / Home Meds: No Action flecainide 150 mg tablet 150 mg PO Q12H metoprolol succinate 50 mg tablet extended release 24 hr 25 mg PO Q12H norethindrone-e.estradiol-iron [ FE 11/09 ()] 1 mg-20 mcg (21)/75 mg (7) tablet 1 tab PO DAILY Print Language: Swiss Instructions: Premature Ventricular Contractions (ED) Additional Instructions: no change in medication. Contact your staffing consultant tomorrow Referrals: Physician,Non-Staff, MD [Primary Care Provider] - As soon as possible Discharge Date/Time: 01/12/24 04:41
--- NOTE | 2024-01-12 01:14 | XR_ITS ---
The [address] [address] Patient Name: KSENIA SHANKAR MRN: [id number] date: 1985 Sex: F Assigned Patient Location: ER Current Patient Location: ER Accession/Order Number: [id number] Exam Date: 01/12/2024 01:20 Report Date: 01/12/2024 01:50 At the request of: KHOA SINCLAIR Procedure: XR chest 1V EXAM: XR chest 1V HISTORY: chest pain COMPARISON: Chest radiograph dated 08/08/2023. TECHNIQUE: One view of the chest was obtained. FINDINGS: The cardiac silhouette is normal in size. The lungs are clear. There is no significant pneumothorax or pleural effusion. No acute osseous abnormality is seen. XR/XR chest 1V IMPRESSION: 1. No acute cardiopulmonary abnormality. Electronically authenticated by: Leeroy HERRON Date: 01/12/2024 01:50
--- NOTE | 2024-01-12 01:25 | ECG_ITS ---
The [facility] Test Date: 2024-01-12 Pat Name: KSENIA SHANKAR Department: Room: - Gender: Female [employer] Folder: : 1985 Requested By: [id number] Order Number: [id number] Reading MD: ELIANA HELLER Measurements Intervals [place] Rate: 64 P: 73 ME: 154 QRS: 92 QRSD: 94 T: 83 QT: 422 QTc: 431 Interpretive Statements 1100 Sinus rhythm 1575 with frequent ventricular premature complexes in a pattern of bigeminy 4068 Nonspecific [place] abnormality 7102 Moderate right axis deviation 9140 abnormal rhythm ECG No previous ECG available for comparison Electronically Signed On 01-12-2024 7:31:04 EDT by ELIANA HELLER
[2024-01-12 01:36] LABS: Anion Gap 12.8; BUN Creatinine Ratio 28.8; Calcium 8.4 mg/dL (8.5-10.1); Carbon Dioxide 24.7 mmol/L (21.0-32.0); Chloride 106 mmol/L (98-107); Estimated GFR (African America >60 (>=60); Estimated GFR (Non-African Ame >60 (>=60); Glucose 98 mg/dL (74-106); Potassium 3.5 mmol/L (3.5-5.1); Sodium 140 mmol/L (136-145); Troponin I High Sensitivity <4.0 pg/mL (4.0-51.3)
[2024-01-12 01:38] LABS: D Dimer 0.53 mg/L FEU (<=0.59)
[2024-01-12 01:52] LABS: Basophils Absolute Auto 0.1 10^3/uL (0.0-0.1); Basophils Percent Auto 0.5 % (0.2-2.0); Eosinophils Absolute Auto 0.2 10^3/uL (0.0-0.7); Eosinophils Percent Auto 2.3 % (0.9-7.0); Hematocrit 35.7 % (36.0-48.0); Hemoglobin 11.7 g/dL (12.0-16.0); Immature Granulocytes Abs Auto 0.02 10^3/uL (0.00-0.03); Immature Granulocytes Pct Auto 0.2 % (0.0-0.5); Lymphocytes Absolute Auto 3.7 10^3/uL (1.2-3.8); Mean Corpuscular HGB Conc 32.8 g/dL (29.9-35.2); Mean Corpuscular Hemoglobin 30.5 pg (26.7-34.0); Mean Platelet Volume 9.7 fL (9.5-13.5); Monocytes Absolute Auto 0.9 10^3/uL (0.3-0.8); Monocytes Percent Auto 9.2 % (1.7-12.0); Neutrophils Absolute Auto 4.6 10^3/uL (1.4-6.5); Neutrophils Percent Auto 48.8 % (43.0-75.0); Platelet Count 221 10^3/uL (150-450); Red Blood Count 3.84 10^6/uL (4.20-5.40); Red Cell Distribution Width 12.2 % (11.0-15.0); White Blood Count 9.4 10^3/uL (4.0-11.0)
[2024-01-12 04:13] LABS: Troponin I High Sensitivity 4.1 pg/mL (4.0-51.3)
[2024-01-12] MEDS: AMOXICILLIN 500 MG CAPSULE 1000 MG PO (04:36)
== END 2024-01-12 04:41 | disposition home or self-care (01) ==
PROVIDERS: Emergency Provider Internal Medicine
DX: I49.3 Ventricular premature depolarization (principal); K02.9 Dental caries, unspecified; Z79.899 Other long term (current) drug therapy; F17.210 Nicotine dependence, cigarettes, uncomplicated; Z98.890 Other specified postprocedural states
CPT/HCPCS: 36415; 71045; 80048; 84484; 85025; 85378; 93005; 99285

== ENCOUNTER 2024-05-30 00:40 | Emergency (ER) | payer BC, OTHER, SELFPAY ==
--- OUTSIDE RECORDS SUMMARY | 2024-05-30 00:49 | XMS_ITS | CCD ---
Author Organization [facility] ion Partnership [facility] Care Team Providers Care Automatic Silk Screen Printer Name Role Phone CAMILLA PACKER Admitting Unavailable CAMILLA PACKER Attending Unavailable DR YARIEL RIVERA Primary Care Unavailable CAMILLA PACKER Consulting Unavailable YARIEL RIVERA Attending Unavailable Rumschlag DO, Maggie K Primary Care Provider [phone] CY ANDRE Attending Unavailable CY ANDRE Referring Unavailable RUMSCHLAG, MAGGIE K Primary Care Unavailable CY ANDRE Attending Unavailable CY ANDRE Referring Unavailable RUMSCHLAG, MAGGIE K Primary Care Unavailable CY ANDRE Attending Unavailable CY ANDRE Referring Unavailable RUMSCHLAG, MAGGIE K Primary Care Unavailable CY ANDRE Referring Unavailable RUMSCHLAG, MAGGIE K Primary Care Unavailable CY ANDRE Attending Unavailable RUMSCHLAG, MAGGIE K Referring Unavailable RUMSCHLAG, MAGGIE K Primary Care Unavailable CY ANDRE Referring Unavailable RUMSCHLAG, MAGGIE K Primary Care Unavailable CY ANDRE Attending Unavailable RUMSCHLAG, MAGGIE K Referring Unavailable RUMSCHLAG, MAGGIE K Primary Care Unavailable CHERYL, P BRANDON Admitting Unavailable CHERYL, Cheri KEMPI Attending Unavailable RUMSCHLAG, MAGGIE K Primary Care Unavailable CALE REESE Attending Unavailable RUMSCHLAG, MAGGIE K Referring Unavailable RUMSCHLAG, MAGGIE K Primary Care Unavailable KATIEZINGER CALE Referring Unavailable RUMSCHLAG, MAGGIE K Primary Care Unavailable Allergies Allergy Classification Reported Allergen(s) Allergy Type Date of Onset Reaction(s) Facility (1 source) diphenhydrAMINE Drug Allergy 3 [facility] Repository (4 sources) diphenhydrAMINE; Translations: [DIPHENHYDRAMINE HCL] Drug Allergy 6 Facial Swelling [facility] Medications Current Medications Medication Drug Class(es) Dates Sig (Normalized) Sig (Original) flecainide acetate 150 mg oral tablet (3 sources) Antiarrhythmic Start: 04-30-2023 End: 01-21-2024 take 1 tablet by mouth in the morning, then take 1 tablet by mouth at bedtime flecainide (TAMBOCOR) 150 mg tablet Indications: Paroxysmal ventricular tachycardia (CMS-HCC) , Frequent PVCs Take 1 tablet (150 mg total) by mouth in the morning and 1 tablet (150 mg total) before bedtime. 180 tablet 3 01/21/2024 Active 24 hr metoprolol succinate 50 mg extended release oral tablet (3 sources) beta-Adrenergic Denise Start: 04-30-2023 End: 01-21-2024 metoprolol succinate XL (TOPROL XL) 50 mg 24 hr tablet Indications: Paroxysmal ventricular tachycardia (CMS-HCC) , Frequent PVCs Take 1/2 tablet twice daily 90 tablet 3 01/21/2024 Active UNABLE TO FIND (1 source) UNABLE TO FIND control: Aurobindo 1 tab at night 0 Active Completed/Discontinued Medications Medication Drug Class(es) Dates Sig (Normalized) Sig (Original) Ethinyl Estradiol / Ferrous fumarate / Norethindrone (2 sources) Estrogen Start: 11-27-2019 End: 01-21-2024 take 1 tablet by mouth once in the morning 11/09, 28, 1 mg-20 mcg (21)/75 mg (7) per tablet Take 1 tablet by mouth in the morning. 0 11/27/2019 01/21/2024 Discontinued (Discontinued by another clinician) Start: 11-27-2019 take 1 tablet by terrence th once in the morning 11/09, 28, 1 mg-20 mcg (21)/75 mg (7) per tablet Take 1 tablet by mouth in the morning. 0 11/27/2019 Active Problems Active Problems Problem Classification Problem Date Documented Date Episodic/Chronic Aortic; peripheral; and visceral artery aneurysms (2 sources) Aneurysm of artery of lower extremity; Translations: [Aneurysm of artery of lower extremity] Onset: 03-27-2010 07-16-2017 Chronic Cardiac dysrhythmias (8 sources) Paroxysmal ventricular tachycardia; Translations: [Paroxysmal ventricular tachycardia] Onset: 01-31-2010 07-16-2017 Chronic Other aftercare (3 sources) Patient encounter status; Translations: [Encounter for therapeutic drug level monitoring] Onset: 10-09-2018 10-09-2018 Episodic Other screening for suspected conditions (not mental disorders or infectious disease) (2 sources) Abnormal result of other cardiovascular function study; Translations: [Abnormal result of other cardiovascular function study] Onset: 03-25-2024 Episodic Unclassified (1 source) Wound Check Onset: 04-18-2024 Unclassified (1 source) Abnormal stress test Onset: 04-03-2024 Unclassified (1 source) Other ventricular tachycardia; Translations: [Other ventricular tachycardia] Onset: 07-16-2017 Past or Other Problems Problem Classification Problem Date Documented Da te Episodic/Chronic Conditions associated with dizziness or vertigo (3 sources) Dizziness; Translations: [Dizziness and giddiness] Onset: 01-21-2024 01-21-2024 Episodic Nonspecific chest pain (3 sources) Chest pain; Translations: [Other chest pain] Onset: 01-21-2024 01-21-2024 Episodic Other aftercare (1 source) Encounter for therapeutic drug level monitoring; Translations: [Encounter for therapeutic drug level monitoring] Onset: 10-09-2018 Episodic Other aftercare (1 source) Other lobsterman (current) drug therapy; Translations: [Other custodial (current) drug therapy] Onset: 10-09-2018 Episodic Other complications of (2 sources) Missed miscarriage; Translations: [Missed ] Onset: 05-24-2017 05-24-2017 Episodic Other lower respiratory disease (2 sources) Dyspnea; Translations: [Shortness of breath] Onset: 01-27-2015 07-16-2017 Episodic Syncope (2 sources) Syncope and collapse; Translations: [Syncope and collapse] Onset: 04-06-2010 07-16-2017 Episodic Results Test Name Value Interpretation Reference Range Facil ity HCG ( test) Ql (U)o n 04-03-2024 Beta HCG ( test) Ql (U) Negative Normal NEG [facility] Comment on above: Performed By: #### 2 106-3 #### [facility] ([id number]) [address] [place] [address] BASIC METABOLIC PANLon 03-25 Anion gap [Moles/Vol] 7 mmol/L Normal 5-15 [facility] Comment on above: Performed By: #### Wilman LAWTON, BMP #### [facility] ([id number]) [address], [address] [place] [address] Calcium [Mass/Vol] 9.1 mg/dL Normal 8.5-10.5 [facility] Comment on above: Performed By: #### C LEIGHANN, BMP #### [facility] ([id number]) [address], [address] [place] [address] Chloride [Moles/Vol] 104 mmol/L Normal 98-109 [facility] Comment on above: Performed By: #### Wilman LAWTON, BMP #### [facility] ([id number]) [address], [address] [place] [address] CO2 [Moles/Vol] 30 mmol/L Normal 22-32 [facility] Comment on above: Performed By: #### Wilman LAWTON, BMP #### [facility] ([id number]) [address], [address] [place] [address] Creatinine [Mass/Vol] 0.66 mg/dL Normal 0.40-1.00 [facility] Comment on above: Result Comment: METH OD TRACEABLE TO IDMS STANDARD Performed By: #### Wilman LAWTON, BMP #### [facility] ([id number]) [address] [place] [address] eGFR (CKD-EPI) NON-RACE DEPENDENT >90 Normal >59 [facility] Comment on above: Result Comment: Reported eGFR is based on the CKD-EPI 2020 equation that does not use a race coefficient. Performed By: #### C LEIGHANN, BMP #### [facility] ([id number]) [address], [address] [place] [address] Glucose [Mass/Vol] 88 mg/dL Normal 65-99 [facility] Comment on above: Performed By: #### C LEIGHANN, BMP #### [facility] ([id number]) [address], [address] [place] [address] Potassium [Moles/Vol] 4.2 mmol/L Normal 3.5-5.0 [facility] Comment on above: Performed By: #### C LEIGHANN, BMP #### [facility] ([id number]) [address], [address] [place] [address] Sodium [Moles/Vol] 141 mmol/L Normal 134-146 [facility] Comment on above: Performed By: #### C LEIGHANN, BMP #### [facility] ([id number]) [address], [address] [place] [address] Urea nitrogen [Mass/Vol] 15 mg/dL Normal 5-23 [facility] Comment on above: Performed By: #### Wilman LAWTON, BMP #### [facility] ([id number]) [address], [address] [place] [address] COMPLETE BLOOD COUNTon 03-25 Erythrocyte distribution width (RBC) [Ratio] 13.3 % Normal 11.5-15.0 [facility] Comment on above: Performed By: #### C LEIGHANN, BMP #### [facility] ([id number]) [address] [place] [address] Hematocrit (Bld) [Volume fraction] 38.7 % Normal 35-47 [facility] Comment on above: Performed By: #### C LEIGHANN, BMP #### [facility] ([id number]) [address] [place] [address] Hemoglobin (Bld) [Mass/Vol] 13.3 g/dL Normal 11.7-15.5 [facility] Comment on above: Performed By: #### C LEIGHANN, BMP #### [facility] ([id number]) [address], [address] [place] [address] MCH (RBC) [Entitic mass] 31.5 pg Normal 27-34 [facility] Comment on above: Performed By: #### Wilman LAWTON, BMP #### [facility] ([id number]) [address], [facility] [address] [place] [address] MCHC (RBC) [Mass/Vol] 34.3 g/dL Normal 32-36 [facility] Comment on above: Performed By: #### Wilman LAWTON, BMP #### [facility] ([id number]) [address], [facility] [address] [place] [address] MCV (RBC) [Entitic vol] 92 fL Normal 80-100 [facility] Comment on above: Performed By: #### Wilman LAWTON, BMP #### [facility] ([id number]) [address], [facility] [address] [place] [address] Platelet mean volume (Bld) [Entitic vol] 8.1 fL Normal 7-12 [facility] Comment on above: Performed By: #### Wilman LAWTON, BMP #### [facility] ([id number]) [address], [facility] [address] [place] [address] Platelets (Bld) [#/Vol] 288 10*3/uL Normal 150-450 [facility] Comment on above: Performed By: #### Wilman LAWTON, BMP #### [facility] ([id number]) [address], [facility] [address] [place] [address] RBC COUNT 4.22 X10E12/L Normal 3.80-5.20 [facility] Comment on above: Performed By: #### Wilman LAWTON, BMP #### [facility] ([id number]) [address] [address] [place] [address] WBC (Bld) [#/Vol] 6.9 10*3/uL Normal 4.0-11.0 [facility] Comment on above: Performed By: #### C BC, BMP #### [facility] ([id number]) [address] [facility] [place] [address] POCT EKGon 01-21-2024 [facility] Vital Signs Date Time Vital Sign Value Performing Clinician Bud monson 01-21-2024 12:46-0400 Body height 170.2 cm Cy Andre APRNCouponCabin Work Phone: [facility] [employer] 01-21-2024 12:46-0400 Body mass index (BMI) [Ratio] 28.13 kg/m2 Cy Andre OCCUPATIONAL MEDICINE SPECIALISTCouponCabin Work Phone: [facility] 01-21-2024 12:46-0400 Body weight 81.47 kg Cy Andre OCCUPATIONAL MEDICINE SPECIALISTCouponCabin Work Phone: [facility] 01-21-2024 12:46-0400 Diastolic blood pressure 68 mm[Hg] Cy Andre OCCUPATIONAL MEDICINE SPECIALISTCouponCabin Work Phone: [facility] 01-21-2024 12:46-0400 Heart rate 62 /min Cy Andre APRNCouponCabin Work Phone: [place] 01-21-2024 12:46-0400 SaO2% (BldA) [Mass fraction] 97 % Cy Andre OCCUPATIONAL MEDICINE SPECIALISTCouponCabin Work Phone: [facility] 01-21-2024 12:46-0400 Systolic blood pressure 110 mm[Hg] Cy Henaohart OCCUPATIONAL MEDICINE SPECIALISTCouponCabin Work Phone: [facility] Encounters Encounter Date Encounter Type Care Provider Facility Start: 05-12-2024 End: 05-12-2024 ambulatory [facility] Start: 04-18-2024 End: 04-18-2024 ambulatory [facility] Start: 04-03-2024 End: 04-03-2024 ambulatory Cheri LUNA [facility] Start: 03-25-2024 End: 03-25-2024 ambulatory CY ANDRE [facility] Start: 03-25-2024 End: 03-25-2024 ambulatory [facility] Start: 03-20-2024 End: 03-20-2024 ambulatory [facility] Start: 03-20-2024 End: 03-20-2024 ambulatory [facility] Start: 01-22-2024 ambulatory PIERC[facility]ON [facility] Start: 01-21-2024 End: 01-21-2024 Office outpatient visit 25 minutes Cy Elizabeth Jes OCCUPATIONAL MEDICINE SPECIALIST-APPRENTICE PAINTER HAND Work Phone: [facility] Comment on above: Paroxysmal ventricul ar tachycardia (CMS-HCC) (Primary Dx); Frequent PVCs; Encounter for monitoring flecainide therapy; Other chest pain; Dizziness Start: 01-21-2024 End: 01-21-2024 ambulatory [facility] Start: 01-20-2024 Telephone encounter Shira Solano LPN [facility] Start: 12-16-2023 End: 12-16-2023 ambulatory YARIEL LIRAO Not Available Start: 11-05-2022 End: 11-05-2022 ambulatory CAMILLA PACKER Facility: Procedures Date Procedure Procedure Detail Performing Clinician Start: 01-21-2024 Ecg routine ecg w/le ast 12 lds w/i&r Cy Andre OCCUPATIONAL MEDICINE SPECIALIST-APPRENTICE PAINTER HAND Work Phone: Start: 01-21-2024 Follow-up visit Follow-up CY ANDRE Start: 11-05-2022 Microscopic observat ion [Identifier] in Cervix by Cyto stain Shira Solano LPN Plan of Treatment Date Care Activity Detail Author Start: 11-05-2025 Screening for malign ant neoplasm of cervix Pap Smear [facility] Start: 01-20-2025 Adult BMI Screening Adult BMI Screen ing [facility] Start: 01-20-2025 Tobacco Screening Tobacco Screening [facility] Start: 06-21-2024 Influenza vaccination Influenza Vacc ine [facility] Start: 04-30-2024 Adult BMI Screening Adult BMI Screen ing [facility] Start: 04-30-2024 Tobacco Screening Tobacco Screening [facility] Start: 03-23-2024 End: 03-23-2024 Patient encounter procedure 03/23/2024 12:00 PM EDT Office Visit [facility] [address] [place] [id number] Cy Andre, OCCUPATIONAL MEDICINE SPECIALIST-APPRENTICE PAINTER HAND [address] [place] [address] [facility] Start: 01-21-2024 End: 01-20-2025 NM Heart Perfusion W stress and W radionuclide IV Nuc stress Lexiscan Cardiac Services Routine Frequent PVCs Other chest pain Dizziness Expected: 01/21/2024, Expires: 01/20/2025 [facility] Comment on above: Expected: 01/21/2024 , Expires: 01/20/2025 Start: 01-21-2024 End: 01-20-2025 Wireless Telemetry (In Office) Wireless Telemetry (In Office) Cardiac Services Routine Frequent PVCs Expected: 01/21/2024, Expires: 01/20/2025 [facility] Work Phone: Comment on above: Expected: 01/21/2024 , Expires: 01/20/2025 Start: 01-21-2024 End: 01-21-2024 Patient encounter procedure 01/21/2024 1:00 PM EDT Office Visit [facility] [address] [place] [id number] Cy Andre, OCCUPATIONAL MEDICINE SPECIALIST-APPRENTICE PAINTER HAND [address] [place] [address] [facility] Start: 2004 DTaP,Tdap and Td Vaccines (1 - Tdap) DTaP,Tdap and Td Vaccines (1 - Tdap) [facility] Start: 2003 Adult BMI Follow Up Plan Adult BMI Follow Up Plan [facility] Start: 1997 Depression Screening Depression Scre ening [facility] Start: 1985 Tobacco Counseling Tobacco Counselin g [facility] Payers Date Payer Category Payer Medicaid [id number] 2022 Unknown [employer] [id number] 2022-Present [address] [place] [address] [id number] 1985 Unknown [id number] 1985 Unknown [id number] [id number] 1985 Unknown [id number] [id number] 1985 Unknown [id number] 1985 Unknown [id number] [id number] 1985 Unknown [id number] [id number] 1985 Unknown [id number] [id number] 1985 Unknown [id number] [id number] 1985 Unknown [id number] [id number] 1985 Unknown [id number] [id number] 1985 Unknown [id number] [id number] 1985 Unknown [id number] [id number] 1985 Unknown [id number] 1959 Unknown [id number] Social History Date Type Detail Facility Start: 04-30-2023 Tobacco smoking stat NHIS Occasional tobacco smoker [facility] History of tobacco use Cigarette Smoker P [facility] Start: 11-20-2020 End: 04-30-2023 Cigarettes smoked current (pack per day) - Reported 0.3 [facility] Start: 04-30-2023 Tobacco use and exposure Smokeless tobacco non-user [facility] Start: 04-30-2023 End: 01-21-2024 Alcohol intake Current drinker of alcohol (finding) [facility] Start: 11-20-2020 End: 04-30-2023 Tobacco use panel [facility] Childcare Unknown [facility] Start: 04-30-2023 Tobacco Comment A pack will la st her a week [facility] Start: 04-30-2023 Alcohol Comment every once in a while--a couple one time per month [facility] Start: 1985 Sex Assigned At Not on file P [facility] History of Present illness Narrative 01-21-2024 Cy Andre APRN-APPRENTICE PAINTER HAND - 01/21/2024 1:00 PM EDT Note Date & Type Note Facility 01-21-2024 History of Present illness Narrative Susie Márquez Date of visit: 01/21/2024 Date of : 1985 Age: 38 y.o. Patient Active Problem List Diagnosis Missed Aneurysm of artery of lower extremity (CMS-HCC) Paroxysmal ventricular tachycardia ([facility]-HCC) Shortness of breath Syncope and collapse Encounter for monitoring flecainide therapy Frequent PVCs Allergies Allergen Reactions Diphenhydramine Hcl Facial Swelling Other reaction(s): eyes swellinig Current Outpatient Medications Medication Sig Dispense Refill UNABLE TO FIND control: Aurobindo 1 tab at night flecainide (TAMBOCOR) 150 mg tablet Take 1 tablet (150 mg total) by mouth in the morning and 1 tablet (150 mg total) before bedtime. 180 tablet 3 metoprolol succinate XL (TOPROL XL) 50 mg 24 hr tablet Take 1/2 tablet twice daily 90 tablet 3 No current facility-administered medications for this visit. Chief Complaint Patient presents with Follow-up ov d/c [place] PVC's halie w pt History of Present Illness Susie Márquez is a 38-year-old female here on follow-up after recent visit at [place] [facility] due to symptomatic palpitations, chest pain, dizziness. She has a longstanding history of PVCs with prior remote ablation attempts initially through [facility] as well as Dr. Antony remotely in 2009. Prior workup including echo in 2016 showing preserved EF, remote cardiac MRI unremarkable for ARVC 2010 Last Holter monitor in 2021 with PVC burden of 15%. 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 Second time this occurred about a month week and a half ago while patient was at work. Due to the nature of the symptoms she was seen at [place] [facility]. She states she felt lightheaded, dizzy, fatigue. She reports that she had several PVCs. Documentation from the ER shows stable lab panels with mildly elevated high sensitive troponin, negative D-dimer, normal x-ray. Discussed in detail with patient today. EKG showing normal sinus rhythm with narrow QRS and preserved conduction intervals. Due to the significant chest discomfort during these events, would recommend Lexiscan stress test. Also 30 day monitor to evaluate overall burden of PVCs. Past Medical History: Diagnosis Date Asthma Chest pain Pseudoaneurysm of femoral artery (CMS-HCC) Syncope Ventricular tachycardia (CMS-HCC) No data recorded No data recorded No data recorded Past Surgical History: Procedure Laterality Date CARDIAC ELECTROPHYSIOLOGY STUDY AND ABLATION SECTION Family History Problem Relation Age of Onset No Known Problems Mother No Known Problems Father Social History Socioeconomic History Marital status: Spouse name: Not on file Number of children: Not on file Years of education: Not on file Highest education level: Not on file Occupational History Not on file Tobacco Use Smoking status: Some Days Packs/day: .25 Types: Cigarettes Smokeless tobacco: Never Tobacco comments: A pack will last her a week Vaping Use Vaping Use: Never used Substance and Sexual Activity Alcohol use: Yes Comment: every once in a while--a couple one time per month Drug use: No Sexual activity: Yes control/protection: Pill Other Topics Concern Caffeine Use Yes Comment: occasional coffee or soda--nothing excessive Social History Narrative Not on file Social Determinants of Health Financial Resource Strain: Not on file Food Insecurity: Not on file Transportation Needs: Not on file Physical Activity: Not on file Stress: Not on file Social Connections: Not on file Interpersonal Safety: Not on file Housing Instability: Not on file Review of Systems Review of Systems Constitutional: Negative for malaise/fatigue and night sweats. Cardiovascular: Negative for chest pain. Respiratory: Negative for cough, shortness of breath and wheezing. Musculoskeletal: Negative for joint pain and joint swelling. Gastrointestinal: Negative for bloating, abdominal pain, constipation, diarrhea, nausea and vomiting. Neurological: Negative for dizziness, headaches, light-headedness, loss of balance and numbness. Psychiatric/Behavioral: The patient is not nervous/anxious. CARDIOVASCULAR: Please review HPI. Physical Examination General appearance: Alert, oriented and cooperative. In no acute distress. Skin: Warm and dry to touch. Head: Normocephalic, without obvious abnormality, atraumatic. Ears, Nose, Mouth, Throat: Throat clear without erythema or exudate. Dentition intact. Eyes: Conjunctivae unremarkable, EOM intact. Neck: No JVD, No carotid bruit. Neck supple, trachea midline. Respiratory: Clear to auscultation bilaterally, no use of accessory muscles. Cardiovascular: RRR with normal S1 and S2 with no murmurs. Gastrointestinal: Soft, non-tender. Bowel sounds normal. Musculoskeletal: No peripheral edema. Neurologic: Oriented to time, person and place, affect appropriate. No focal/major motor defects noted. Psychiatric: Appropriate mood, memory and judgement. VITAL SIGNS: BP 110/68 Pulse 62 Ht 170.2 cm (5' 7 ) Wt 81.5 kg (179 lb 9.6 oz) SpO2 97% BMI 28.13 kg/m Orders Placed or Reconciled This Encounter Medications UNABLE TO FIND Sig: control: Aurobindo 1 tab at night metoprolol succinate XL (TOPROL XL) 50 mg 24 hr tablet Sig: Take 1/2 tablet twice daily Dispense: 90 tablet Refill: 3 flecainide (TAMBOCOR) 150 mg tablet Sig: Take 1 tablet (150 mg total) by mouth in the morning and 1 tablet (150 mg total) before bedtime. Dispense: 180 tablet Refill: 3 Medications Discontinued During This Encounter Medication Reason 11/09, 28, 1 mg-20 mcg (21)/75 mg (7) per tablet Discontinued by another clinician flecainide (TAMBOCOR) 150 mg tablet Reorder metoprolol succinate XL (TOPROL XL) 50 mg 24 hr tablet Reorder IMPRESSIONS/PLAN 1. Paroxysmal ventricular tachycardia (CMS-HCC) - POCT EKG - metoprolol succinate XL (TOPROL XL) 50 mg 24 hr tablet; Take 1/2 tablet twice daily Dispense: 90 tablet; Refill: 3 - flecainide (TAMBOCOR) 150 mg tablet; Take 1 tablet (150 mg total) by mouth in the morning and 1 tablet (150 mg total) before bedtime. Dispense: 180 tablet; Refill: 3 2. Frequent PVCs - Wireless Telemetry (In Office); Future - Nuc stress Lexiscan; Future - metoprolol succinate XL (TOPROL XL) 50 mg 24 hr tablet; Take 1/2 tablet twice daily Dispense: 90 tablet; Refill: 3 - flecainide (TAMBOCOR) 150 mg tablet; Take 1 tablet (150 mg total) by mouth in the morning and 1 tablet (150 mg total) before bedtime. Dispense: 180 tablet; Refill: 3 3. Encounter for monitoring flecainide therapy 4. Other chest pain - Nuc stress Lexiscan; Future 5. Dizziness - Nuc stress Lexiscan; Future 1. Symptomatic palpitations. Seen at [facility] ER in [place]. Reports of frequent PVCs in mildly elevated though within acceptable limit troponins. Chest discomfort, dizziness, fatigue. Lexiscan stress test. Thirty day monitor. 2. High risks antiarrhythmic. Continues on flecainide 150 mg b.i.d., beta-denise 25 b.i.d. 3. Remote attempts of ablation for PVCs [facility] Dr. Barreto, 2010 Dr. Antony. Reported unsuccessful. Obtained records from [place] ER after office visit to be scanned in media section Testing to complete. Follow-up in 2 months Patient seen while Dr. Childress was immediately available in the office suite TODAYS ORDERS Orders Placed This Encounter Procedures Wireless Telemetry (In Office) Nuc stress Lexiscan POCT EKG FOLLOW UP Return in about 2 months (around 03/22/2024) for Next scheduled follow up brenda serna. PCP: MAGGIE PITT DO Referring Physician: Maggie Pitt DO [address] [place] [address] FRANCISCO Wayne 01/21/24 1411 documented in this encounter [facility] [employer] Note 01-20-2024 Telephone Encounter - Shira Solano LPN - 01/20/2024 12:36 PM EDT Note Date & Type Note Facility 01-20-2024 Miscellaneous Notes Formattin g of this note might be different from the original. Left message for patient to remind them to bring their most current medication list with them to their appointment. documented in this encounter [facility] Telephone encounter Note 01-20-2024 Telephone Encounter - Shira Solano LPN - 01/20/2024 12:36 PM EDT Note Date & Type Note Facility 01-20-2024 Telephone encount er Note Left message for patient to remind them to bring their most current medication list with them to their appointment. [facility] Evaluation note Note Date & Type Note Facility Evaluation note Diagnosis Paroxysmal ventricular tachycardia ([facility])- Primary Paroxysmal ventricular tachycardia Frequent PVCs Encounter for monitoring flecainide therapy Other chest pain Dizziness Dizziness and giddiness documented in this encounter [facility] Instructions Note Date & Type Note Facility Instructions Not on filedocumented in this en counter [facility] Instructions Note Date & Type Note Facility Instructions Not on filedocumented in this en counter [facility] Summary Purpose Family History No Family History Records FoundNo Family History Records FoundNo Family History Records FoundNo Family History Records Found Advance Directives No Advanced Directives Records FoundNo Advanced Directives Records FoundNo Advanced Directives Records FoundNo Advanced Directives Records Found Reason for Referral Specialty Diagnoses / Procedures Referred By Michele mcrae Referred To Contact Diagnoses Frequent PVCs Other chest pain Dizziness Procedures Nuc stress Lexiscan Cy Andre, GHAZALA-APPRENTICE PAINTER HAND [address] [place] [address] Referral ID Status Reason Start Date Expiration Date V isits Requested Visits Authorized [id number] Pending Review 01/21/2024 01/20/2025 5 5 Specialty Diagnoses / Procedures Referred By Michele t Referred To Contact Diagnoses Frequent PVCs Procedures Wireless Telemetry (In Office) Cy Andre, OCCUPATIONAL MEDICINE SPECIALIST-APPRENTICE PAINTER HAND [address] [place] [address] Referral ID Status Reason Start Date Expiration Date V isits Requested Visits Authorized [id number] Pending Review 01/21/2024 01/20/2025 1 1 Additional Source Comments INFORMATION SOURCE (unrecogn ized section and content) DATE CREATED AUTHOR 11/06/2022 [facility] DATE CREATED AUTHOR AUTHOR'S ORGANIZ ATION 12/27/2023 [facility] EPIC DATE CREATED AUTHOR AUTHOR'S ORGANIZ ATION 04/05/2024 [facility] DATE CREATED AUTHOR AUTHOR'S ORGANIZ ATION 05/14/2024 [facility] Care Teams (unrecognized sec tion and content) [employer] Relationship Specialty Start Date End Date Maggie Pitt DO [address] [place] [address] PCP - General Family Medicine 11/23/22 [employer] Relationship Specialty Start Date End Date Maggie Pitt DO [address] [place] [address] PCP - General Family Medicine 11/23/22 Reason for Visit (unrecogniz ed section and content) Reason Comments Follow-up ov d/c [place] [facility] s halie w pt FOR RECORDS PERTAINING TO PATIENTS WHO ARE [...] BE BASED ON THE PRIMARY CLINICAL RECORDS. [employer] provides no warranty or guarantee of the accuracy or completeness of information in this document.
[2024-05-30 00:51] VITALS: PULSE 58
--- NOTE | 2024-05-30 00:51 | ECG_ITS ---
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
[2024-05-30 00:53] VITALS: BP 112/57; PULSE 58; TEMP 36.8; O2SAT 99; BMI 28.8
--- NOTE | 2024-05-30 01:04 | PC.NURSE ---
States burning across chest
--- NOTE | 2024-05-30 01:13 | XR_ITS ---
The [address] [address] Patient Name: KSENIA SHANKAR MRN: [id number] date: 1985 Sex: F Assigned Patient Location: ER Current Patient Location: ER Accession/Order Number: [id number] Exam Date: 05/30/2024 01:18 Report Date: 05/30/2024 01:44 At the request of: KHOA SINCLAIR Procedure: XR chest 1V EXAMINATION: XR chest 1V, , 05/30/2024 1:18 AM EDT INDICATION: short of breath HISTORY: Ordering Provider Reason for Exam: short of breath Technologist Note: Additional: COMPARISON: None. TECHNIQUE: Chest x-ray: One view. FINDINGS: No pneumothorax, pleural effusion or focal airspace consolidation. Heart is normal in size. Bony thorax is unremarkable. XR/XR chest 1V IMPRESSION: No acute cardiopulmonary process. Electronically authenticated by: VALENCIA KOHLER Date: 05/30/2024 01:44
--- NOTE | 2024-05-30 01:13 | ED_ITS ---
HPI - Chest Pain General Chief Complaint: Chest Pain Stated Complaint: tooth problem heart palpitations Time Seen by Provider: 05/30/24 01:06 Source: patient Mode of arrival: walk-in Limitations: no limitations History of Present Illness HPI narrative: patient describes a history of arrhythmia . has upcoming appointment with EP. States she had a heart cath 2 months ago and it was normal. States she experienced burning in her chest tonight whenever she would lay down and felt short of breath. No longer has burning but still feels a little short of breath also complains of burning of her gums. No painful teeth but does have cavities Related Data Home Medications ?Medication ?Instructions ?Recorded ?Confirmed flecainide 150 mg tablet 150 mg PO Q12H 05/08/23 05/30/24 metoprolol succinate 50 mg 25 mg PO Q12H 05/08/23 05/30/24 tablet,extended release 24 hr norethindrone 1 mg-ethinyl 1 tab PO DAILY 05/08/23 05/30/24 estradiol 20 mcg (21)-iron 75 mg (7) tablet (11/09 (28)) aspirin 81 mg chewable tablet 81 mg PO DAILY 05/30/24 05/30/24 nitroglycerin 0.3 mg sublingual 0.3 mg sublingual PRN chest pain 05/30/24 tablet Allergies Allergy/AdvReac Type Severity Reaction Status Date / Time diphenhydramine Allergy Severe Swelling Verified 05/30/24 00:58 [From Benadryl] of the Eye Review of Systems ROS Status of ROS 10 or more systems reviewed and unremark able except as noted in history and below [facility] Medical History (Updated 05/30/24 @ 06:55 by Mayco Christie MD) Cardiac arrhythmia ?I49.9 - Cardiac arrhythmia, unspecified (ICD-10) Heart murmur ?R01.1 - Cardiac murmur, unspecified (ICD-10) Surgical History (Updated 06/23/23 @ 06:54 by Jaskaran Rajput) History of radiofrequency ablation procedure for cardiac arrhythmia ?Z98.890 - Other specified postprocedural states (ICD-10) Social History Smoking status: Light tobacco smoker Exam Constitutional Vital Signs, click to edit/add: Last Vital Signs Temp 98.3 F 05/30/24 00:53 Pulse 66 05/30/24 05:08 Resp 20 05/30/24 05:08 BP 100/63 05/30/24 05:08 Pulse Ox 99 05/30/24 05:08 O2 Del Method Room Air 05/30/24 05:08 Common normals: no apparent distress, average body habitus, oriented x3, no limitations, healthy appearing, alert and well nourished [facility] Other: gingiva normal. positive dental caries. No surrounding swelling Eye Common normals: PERRL, EOMs intact bilaterally and conjunctivae normal Respiratory Common normals: normal respiratory effort, no retractions, no use of accessory muscles and clear to auscultation bilaterally Cardio Common normals: regular rate, regular rhythm, S1 normal heart sound and S2 normal heart sound GI Common normals: Normal to inspection, nondistended, normoactive bowel sounds present, soft to palpation and non-tender Extremity Common normals: normal to inspection and full ROM Neuro Common normals: oriented x3, CN's II-XII intact bilaterally, moves all extremities and no focal motor deficits Psych Appearance: grossly normal Course Vital Signs Vital signs: Vital Signs Temperature 98.3 F 05/30/24 00:53 Pulse Rate 58 L 05/30/24 00:53 Respiratory Rate 18 05/30/24 00:53 Blood Pressure 112/57 05/30/24 00:53 Pulse Oximetry 99 05/30/24 00:53 Oxygen Delivery Method Room Air 05/30/24 00:53 Temperature 98.3 F 05/30/24 00:53 Pulse Rate 66 05/30/24 05:08 Respiratory Rate 20 05/30/24 05:08 Blood Pressure 100/63 05/30/24 05:08 Pulse Oximetry 99 05/30/24 05:08 Oxygen Delivery Method Room Air 05/30/24 05:08 MDM - Chest Pain MDM Narrative Medical decision making narrative: patient presents with burning pain of her chest worse when supine and feeling short of breath. Had eaten pizza tonight prior to onset of symptoms. RA pulse ox 99%. Exam neg. D-dimer elevated. CTA chest ordered CTA pending but patient did not want to wait because her ride needed to leave. Patient signed out AMA Lab Data Labs: Lab Results 05/30/24 Range/Units 01:10 WBC 9.9 (4.0-11.0) 10^3/uL RBC 4.08 L (4.20-5.40) 10^6/uL Hgb 12.5 (12.0-16.0) g/dL Hct 37.5 (36.0-48.0) % MCV 91.9 (81.0-99.0) fL MCH 30.6 (26.7-34.0) pg MCHC 33.3 (29.9-35.2) g/dL RDW 12.4 (11.0-15.0) % Plt Count 257 (150-450) 10^3/uL MPV 9.4 L (9.5-13.5) fL Neut % (Auto) 45.9 (43.0-75.0) % Lymph % (Auto) 43.0 (20.5-60.0) % Mccreary % (Auto) 8.3 (1.7-12.0) % Eos % (Auto) 2.0 (0.9-7.0) % Baso % (Auto) 0.7 (0.2-2.0) % Neut # (Auto) 4.6 (1.4-6.5) 10^3/uL Lymph # (Auto) 4.3 H (1.2-3.8) 10^3/uL Mccreary # (Auto) 0.8 (0.3-0.8) 10^3/uL Eos # (Auto) 0.2 (0.0-0.7) 10^3/uL Baso # (Auto) 0.1 (0.0-0.1) 10^3/uL Abs Immat Gran (auto) 0.01 (0.00-0.03) 10^3/uL Imm/Tot Granulo (auto) 0.1 (0.0-0.5) % D-Dimer 0.62 H* (<=0.59) mg/L FEU Sodium 136 (136-145) mmol/L Potassium 3.6 (3.5-5.1) mmol/L Chloride 104 (98-107) mmol/L Carbon Dioxide 26.6 (21.0-32.0) mmol/L Anion Gap 9.0 BUN 14.0 (7.0-18.0) mg/dL Creatinine 0.69 (0.55-1.02) mg/dL Est GFR ( Amer) >60 (>=60) Est GFR (Non-Af Amer) >60 (>=60) BUN/Creatinine Ratio 20.3 Glucose 83 (74-106) mg/dL Calcium 8.6 (8.5-10.1) mg/dL Troponin I High Sens <4.0 L (4.0-51.3) pg/mL Discharge Plan Discharge Stand Alone Forms: Portal Instructions Chief Complaint: Chest Pain Clinical Impression: Chest pain Patient Disposition: Left Against Medical Advice Condition: Good Mode of Transportation: Private Vehicle Prescriptions / Home Meds: No Action flecainide 150 mg tablet 150 mg PO Q12H metoprolol succinate 50 mg tablet extended release 24 hr 25 mg PO Q12H norethindrone-e.estradiol-iron [11/09 (28)] 1 mg-20 mcg (21)/75 mg (7) tablet 1 tab PO DAILY aspirin 81 mg tablet,chewable 81 mg PO DAILY nitroglycerin 0.3 mg tablet, sublingual 0.3 mg sublingual PRN (Reason: chest pain) Print Language: Tamazight Referrals: Physician,Non-Staff, MD [Primary Care Provider] - 1 week Discharge Date/Time: 05/30/24 03:20
[2024-05-30 01:18] LABS: Basophils Absolute Auto 0.1 10^3/uL (0.0-0.1); Basophils Percent Auto 0.7 % (0.2-2.0); Eosinophils Absolute Auto 0.2 10^3/uL (0.0-0.7); Hematocrit 37.5 % (36.0-48.0); Hemoglobin 12.5 g/dL (12.0-16.0); Immature Granulocytes Abs Auto 0.01 10^3/uL (0.00-0.03); Immature Granulocytes Pct Auto 0.1 % (0.0-0.5); Lymphocytes Absolute Auto 4.3 10^3/uL (1.2-3.8); Mean Corpuscular HGB Conc 33.3 g/dL (29.9-35.2); Mean Corpuscular Hemoglobin 30.6 pg (26.7-34.0); Mean Corpuscular Volume 91.9 fL (81.0-99.0); Mean Platelet Volume 9.4 fL (9.5-13.5); Monocytes Absolute Auto 0.8 10^3/uL (0.3-0.8); Monocytes Percent Auto 8.3 % (1.7-12.0); Neutrophils Absolute Auto 4.6 10^3/uL (1.4-6.5); Neutrophils Percent Auto 45.9 % (43.0-75.0); Platelet Count 257 10^3/uL (150-450); Red Blood Count 4.08 10^6/uL (4.20-5.40); Red Cell Distribution Width 12.4 % (11.0-15.0); White Blood Count 9.9 10^3/uL (4.0-11.0)
[2024-05-30 01:35] LABS: BUN Creatinine Ratio 20.3; Calcium 8.6 mg/dL (8.5-10.1); Carbon Dioxide 26.6 mmol/L (21.0-32.0); Chloride 104 mmol/L (98-107); Estimated GFR (African America >60 (>=60); Estimated GFR (Non-African Ame >60 (>=60); Glucose 83 mg/dL (74-106); Potassium 3.6 mmol/L (3.5-5.1); Sodium 136 mmol/L (136-145); Troponin I High Sensitivity <4.0 pg/mL (4.0-51.3)
[2024-05-30 01:37] LABS: D Dimer 0.62 mg/L FEU (<=0.59)
--- NOTE | 2024-05-30 01:40 | CT_ITS ---
The [address] [address] Patient Name: KSENIA SHANKAR MRN: [id number] date: 1985 Sex: F Assigned Patient Location: ER Current Patient Location: Accession/Order Number: [id number] Exam Date: 05/30/2024 01:51 Report Date: 05/30/2024 03:12 At the request of: KHOA SINCLAIR Procedure: CT angio chest EXAM: CT angio chest HISTORY: Dyspnea. chest pain COMPARISON: Chest x-ray, 05/30/2024. TECHNIQUE: IV contrast enhanced CTA imaging the chest was performed with MIP, MPR and 3-D reconstructions. Dose reduction techniques were achieved by using automated exposure control and/or adjustment of mA and/or kV according to patient size and/or use of iterative reconstruction technique. FINDINGS: There is good enhancement of the pulmonary arteries. No acute pulmonary embolism is seen. The heart is top normal in size. No coronary arterial calcification or pericardial effusion is seen. Pulsation artifact degrades the proximal ascending aorta. The thoracic aorta and arch vessels are otherwise unremarkable. There is no dissection or aneurysm. The thyroid gland and esophagus are unremarkable. There is normal thymic tissue in the anterior mediastinal fat. There is biapical pulmonary parenchymal scarring. The lungs are otherwise clear. The upper abdomen is unremarkable. The bony thorax is intact. CT/CT angio chest IMPRESSION: No acute pulmonary embolism, aortic dissection, or other acute cardiopulmonary findings. Electronically authenticated by: MOOSE MINAYA Date: 05/30/2024 03:12
[2024-05-30 02:20] VITALS: BP 110/65; PULSE 60; O2SAT 99
[2024-05-30 05:08] VITALS: BP 100/63; PULSE 66; O2SAT 99
== END 2024-05-30 03:20 | disposition left against medical advice (07) ==
PROVIDERS: Emergency Provider Internal Medicine
DX: R07.9 Chest pain, unspecified (principal); F17.200 Nicotine dependence, unspecified, uncomplicated; Z53.29 Procedure and treatment not carried out because of patient's decision for other reasons
CPT/HCPCS: 36415; 71045; 71275; 80048; 84484; 85025; 85378; 93005; 99285; Q9967

== ENCOUNTER 2024-12-22 18:29 | Outpatient (REF) | payer BC, SELFPAY ==
--- OUTSIDE RECORDS SUMMARY | 2024-12-22 18:33 | XMS_ITS | CCD ---
Author Organization [facility] CliniSyme Care Team Providers Care Choir Member Name Role Phone CAMILLA PACKER Admitting Unavailable CAMILLA PACKER Attending Unavailable DR YARIEL RIVERA Primary Care Unavailable CAMILLA PACKER Consulting Unavailable YARIEL RIVERA [facility] MOIRA BATISTA Attending [facility] RUMSCHLAG, MAGGIE K Primary Care Unavailable ROWAN MARTINEZ Attending Unavailable ROWAN MARTINEZ Referring Unavailable RUMSCHLAG, MAGGIE K Primary Care Unavailable ROWAN MARTINEZ B Attending Unavailable MARTINEZ, KRYSUTT B Referring Unavailable RUMSCHLAG, MAGGIE K Primary Care Unavailable JES CY Elizabeth Referring Unavailable RUMSCHLAG, MAGGIE K Primary Care Unavailable CY ANDRE Referring Unavailable JES CY Elizabeth Attending Unavailable RUMSCHLAG, MAGGIE K Primary Care Unavailable JES CY E Referring Unavailable JES CY E Attending Unavailable RUMSCHLAG, MAGGIE K Primary Care Unavailable JES CY E Referring Unavailable JES CY E [facility] CY ANDRE Attending Unavailable RUMSCHLAG, MAGGIE K Referring Unavailable RUMSCHLAG, MAGGIE K Primary Care Unavailable JES CY E Referring Unavailable RUMSCHLAG, MAGGIE K Primary Care Unavailable JES CY E Attending Unavailable RUMSCHLAG, MAGGIE K Referring Unavailable RUMSCHLAG, MAGGIE K Primary Care Unavailable Cheri ENGLAND Admitting Unavailable Cheri ENGLAND Attending Unavailable RUMSCHLAG, MAGGIE K Primary Care Unavailable CALE REESE Attending Unavailable RUMSCHLAG, MAGGIE K Referring Unavailable RUMSCHLAG, MAGGIE K Primary Care Unavailable MAINZINGER, CALE Referring Unavailable RUMSCHLAG, MAGGIE K Primary Care Unavailable ROWAN MARTINEZ Attending Unavailable MAGGIE PITT Referring Unavailable MAGGIE PITT Primary Care Unavailable ROWAN MARTINEZ Referring Unavailable SERVICES, [facility] ROWAN Mohan Referring Unavailable SERVICES, [facility] CY ANDRE Attending Unavailable SERVICES, [facility] Unava ilCY Doe Referring Unavailable SERVICES, [facility] Un[facility] il[facility] Maggie Pitt DO Primary Care Provider Allergies Allergy Classification Reported Allergen(s) Allergy Type Date of Onset Reaction(s) Facility (1 source) diphenhydrAMINE Drug Allergy 3 [facility] Repository (20 sources) diphenhydrAMINE; Translations: [DIPHENHYDRAMINE HCL] Drug Allergy 6 Facial Swelling [facility] Repository Medications Current Medications Medication Drug Class(es) Dates Sig (Normalized) Sig (Original) aspirin 81 mg delayed release oral tablet (16 sources) Platelet Aggregation Inhibitor, Nonsteroidal Anti-inflammatory Drug take 1 tablet by mouth in the morning aspirin 81 mg Indications: Frequent PVCs , Abnormal stress ECG , Chest tightness Take 1 tablet (81 mg total) by mouth in the morning. 30 tablet 6 Active flecainide acetate 150 mg oral tablet (20 sources) Antiarrhythmic Start: 04-30-2023 End: 12-21-2024 take 1 tablet by mouth in the morning, then take 1 tablet by mouth at bedtime flecainide (TAMBOCOR) 150 mg tablet Indications: Frequent PVCs Take 1 tablet (150 mg total) by mouth in the morning and 1 tablet (150 mg total) before bedtime. 180 tablet 3 12/21/2024 Active 24 hr propranolol hydrochloride 80 mg extended release oral capsule (14 sources) beta-Adrenergic Denise Start: 08-26-2024 End: 11-21-2024 take 1 capsule by mouth every twenty-four hours in the morning propranolol LA (INDERAL LA) 80 mg 24 hr capsule Indications: Frequent PVCs Take 1 capsule (80 mg total) by mouth in the morning. 90 capsule 3 11/21/2024 Active Start: 07-20-2024 End: 08-26-2024 take 1 capsule by mouth every twenty-four hours in the morning propranolol LA (INDERAL LA) 60 mg 24 hr capsule Indications: Frequent PVCs Take 1 capsule (60 mg total) by mouth in the morning. 30 capsule 07/20/2024 08/26/2024 Discontinued (Reorder) UNABLE TO FIND (17 sources) UNABLE TO FIND B irth control: Aurobindo 1 tab at night Active UNABLE TO FIND B irth control: Aurobindo 1 tab at night 0 Active Completed/Discontinued Medications Medication Drug Class(es) Dates Sig (Normalized) Sig (Original) Ethinyl Estradiol / Ferrous fumarate / Norethindrone (2 sources) Estrogen Start: 11-27-2019 End: 01-21-2024 take 1 tablet by mouth once in the morning 11/09, , 1 mg-20 mcg (21)/75 mg (7) per tablet Take 1 tablet by mouth in the morning. 0 11/27/2019 01/21/2024 Discontinued (Discontinued by another clinician) Start: 11-27-2019 take 1 tablet by terrence once in the morning 11/09, , 1 mg-20 mcg (21)/75 mg (7) per tablet Take 1 tablet by mouth in the morning. 0 11/27/2019 Active 24 hr metoprolol succinate 50 mg extended release oral tablet (8 sources) beta-Adrenergic Denise Start: 04-30-2023 End: 07-20-2024 metoprolol succinate XL (TOPROL XL) 50 mg 24 hr tablet Indications: Paroxysmal ventricular tachycardia (CMS-HCC) , Frequent PVCs Take 1/2 tablet twice daily 90 tablet 3 01/21/2024 07/20/2024 Discontinued nitroglycerin 0.3 mg sublingual tablet (5 sources) Nitrate Vasodilator Start: 03-25-2024 End: 07-20-2024 nitroglycerin (NITROSTAT) 0.3 MG SL tablet Indications: Abnormal stress ECG , Chest tightness 1 under the tongue as needed for angina, may repeat q5mins for up three doses 30 tablet 11 03/25/2024 07/20/2024 Discontinued Problems Active Problems Problem Classification Problem Date Documented Da te Episodic/Chronic Aortic; peripheral; and visceral artery aneurysms (18 sources) Aneurysm of artery of lower extremity; Translations: [Aneurysm of artery of lower extremity] Onset: 03-27-2010 07-16-2017 Chronic Cardiac dysrhythmias (20 sources) Ventricular premature depolarization; Translations: [Paroxysmal ventricular tachycardia] Onset: 01-31-2010 11-21-2024 Chronic Cardiac dysrhythmias (1 source) Palpitations; Translations: [Palpitations] Onset: 09-04-2024 Episodic Disorders of teeth and jaw (2 sources) Other specified disorders of teeth and supporting structures; Translations: [Toothache] Onset: 09-04-2024 Episodic Other aftercare (14 sources) Long-term current use of drug therapy; Translations: [Encounter for therapeutic drug level monitoring] Onset: 10-09-2018 10-09-2018 Episodic Other connective tissue disease (1 source) Leg swelling symptom Onset: 11-21-2024 Episodic Residual codes; unclassified (14 sources) Sleep apnea; Translations: [Other sleep apnea] Onset: 07-20-2024 07-20-2024 Chronic Residual codes; unclassified (1 source) Other sleep apnea; Translations: [Other sleep apnea] Onset: 07-20-2024 Chronic Unclassified (1 source) Rapid Heart Rate Onset: 11-17-2024 Unclassified (1 source) CHEST PAINS Onset: 11-17-2024 Unclassified (1 source) New Patient Onset: 07-20-2024 Unclassified (1 source) Wound Check Onset: 04-18-2024 Unclassified (1 source) Abnormal stress test Onset: 04-03-2024 Unclassified (1 source) Other ventricular tachycardia; Translations: [Other ventricular tachycardia] Onset: 07-16-2017 Past or Other Problems Problem Classification Problem Date Documented Date Episodic/Chronic Conditions associated with dizziness or vertigo (3 sources) Dizziness and giddiness; Translations: [Dizziness] Onset: 01-21-2024 01-21-2024 Episodic Nonspecific chest pain (4 sources) Other chest pain; Translations: [Tight chest] Onset: 01-21-2024 03-25-2024 Episodic Other aftercare (2 sources) Encounter for therapeutic drug level monitoring; Translations: [Encounter for therapeutic drug level monitoring] Onset: 10-09-2018 Episodic Other aftercare (2 sources) Other prison (current) drug therapy; Translations: [Other medical terminologist (current) drug therapy] Onset: 10-09-2018 Episodic Other aftercare (8 sources) Patient encounter status; Translations: [Encounter for therapeutic drug level monitoring] Onset: 10-09-2018 10-09-2018 Episodic Other complications of (18 sources) Missed miscarriage; Translations: [Missed ] Onset: 05-24-2017 05-24-2017 Episodic Other lower respiratory disease (19 sources) Dyspnea; Translations: [Shortness of breath] Onset: 01-27-2015 07-16-2017 Episodic Other screening for suspected conditions (not mental disorders or infectious disease) (12 sources) Abnormal result of other cardiovascular function study; Translations: [Cardiovascular stress test abnormal] Onset: 03-25-2024 03-25-2024 Episodic Syncope (6 sources) Syncope and collapse; Translations: [Syncope and collapse] Onset: 04-06-2010 07-16-2017 Episodic Results Test Name Value Interpretation Reference Range Facil ity POCT EKGOrdered By: Lulu Sow erer on 12-21-2024 [facility] POCT EKGon 07-20-2024 [facility] HCG ( test) Ql (U)o n 04-03-2024 Beta HCG ( test) Ql (U) Negative Normal NEG [facility] Comment on above: Performed By: #### 2 106-3 #### [facility] ([id number]) [address] [place] [address] BASIC METABOLIC PANLon 03-25 Anion gap [Moles/Vol] 7 mmol/L Normal 5-15 [facility] Comment on above: Performed By: #### C BC, BMP #### [facility] ([id number]) [address] [place] [address] Calcium [Mass/Vol] 9.1 mg/dL Normal 8.5-10.5 [facility] Comment on above: Performed By: #### C BC, BMP #### [facility] ([id number]) [address] [place] [address] Chloride [Moles/Vol] 104 mmol/L Normal 98-109 [facility] Comment on above: Performed By: #### C BC, BMP #### [facility] ([id number]) [address], [address] [place] [address] CO2 [Moles/Vol] 30 mmol/L Normal 22-32 [facility] Comment on above: Performed By: #### C LEIGHANN, BMP #### [facility] ([id number]) [address], [address] [place] [address] Creatinine [Mass/Vol] 0.66 mg/dL Normal 0.40-1.00 [facility] Comment on above: Result Comment: METH OD TRACEABLE TO IDMS STANDARD Performed By: #### C LEIGHANN, BMP #### [facility] ([id number]) [address], [address] [place] [address] eGFR (CKD-EPI) NON-RACE DEPENDENT >90 Normal >59 [facility] Comment on above: Result Comment: Reported eGFR is based on the CKD-EPI 2020 equation that does not use a race coefficient. Performed By: #### C LEIGHANN, BMP #### [facility] ([id number]) [address], [address] [place] [address] Glucose [Mass/Vol] 88 mg/dL Normal 65-99 [facility] Comment on above: Performed By: #### Wilman LAWTON, BMP #### [facility] ([id number]) [address] [place] [address] Potassium [Moles/Vol] 4.2 mmol/L Normal 3.5-5.0 [facility] Comment on above: Performed By: #### Wilman LAWTON, BMP #### [facility] ([id number]) [address], [address] [place] [address] Sodium [Moles/Vol] 141 mmol/L Normal 134-146 [facility] Comment on above: Performed By: #### Wilman LAWTON, BMP #### [facility] ([id number]) [address], [address] [place] [address] Urea nitrogen [Mass/Vol] 15 mg/dL Normal 5-23 [facility] Comment on above: Performed By: #### C LEIGHANN, BMP #### [facility] ([id number]) [address], [address] [place] [address] COMPLETE BLOOD COUNTon 03-25 Erythrocyte distribution width (RBC) [Ratio] 13.3 % Normal 11.5-15.0 [facility] Comment on above: Performed By: #### C LEIGHANN, BMP #### [facility] ([id number]) [address], [address] [place] [address] Hematocrit (Bld) [Volume fraction] 38.7 % Normal 35-47 [facility] Comment on above: Performed By: #### C LEIGHANN, BMP #### [facility] ([id number]) [address], [address] [place] [address] Hemoglobin (Bld) [Mass/Vol] 13.3 g/dL Normal 11.7-15.5 [facility] Comment on above: Performed By: #### Wilman LAWTON, BMP #### [facility] ([id number]) [address], [address] [place] [address] MCH (RBC) [Entitic mass] 31.5 pg Normal 27-34 [facility] Comment on above: Performed By: #### C LEIGHANN, BMP #### [facility] ([id number]) [address], [address] [place] [address] MCHC (RBC) [Mass/Vol] 34.3 g/dL Normal 32-36 [facility] Comment on above: Performed By: #### C LEIGHANN, BMP #### [facility] ([id number]) [address], [address] [place] [address] MCV (RBC) [Entitic vol] 92 fL Normal 80-100 [facility] Comment on above: Performed By: #### C LEIGHANN, BMP #### [facility] ([id number]) [address], [address] [place] [address] Platelet mean volume (Bld) [Entitic vol] 8.1 fL Normal 7-12 [facility] Comment on above: Performed By: #### C LEIGHANN, BMP #### [facility] ([id number]) [address], [address] [place] [address] Platelets (Bld) [#/Vol] 288 10*3/uL Normal 150-450 [facility] Comment on above: Performed By: #### C LEIGHANN, BMP #### [facility] ([id number]) [address], [address] [place] [address] RBC COUNT 4.22 X10E12/L Normal 3.80-5.20 [facility] Comment on above: Performed By: #### Wilman LAWTON, BMP #### [facility] ([id number]) [address], [address] [place] [address] WBC (Bld) [#/Vol] 6.9 10*3/uL Normal 4.0-11.0 [facility] Comment on above: Performed By: #### C LEIGHANN, BMP #### [facility] ([id number]) [address], [address] [place] [address] POCT EKGon 01-21-2024 [facility] Vital Signs Date Time Vital Sign Value Performing Clinician Faci lity 12-21-2024 12:41-0500 Body height 170.2 cm Rowan Martinez MD Work Phone: [facility] 12-21-2024 12:41-0500 Body mass index (BMI) [Ratio] 31.32 kg/m2 Rowan Martinez MD Work Phone: [facility] 12-21-2024 12:41-0500 Body weight 90.72 kg Rowan Martinez MD Work Phone: [facility] 12-21-2024 12:41-0500 Diastolic blood pressure 70 mm[Hg] Rowan Mratinez MD Work Phone: [facility] 12-21-2024 12:41-0500 Heart rate 62 /min Rowan Martinez MD Work Phone: [facility] 12-21-2024 12:41-0500 Systolic blood pressure 110 mm[Hg] Rowan Martinez MD Work Phone: [facility] 11-21-2024 10:00-0500 Body height 170.2 cm Cy Andre OFFICE MACHINES WIRER-COUN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 Work Phone: [facility] 11-21-2024 10:00-0500 Body mass index (BMI) [Ratio] 31.79 kg/m2 Cy Andre OFFICE MACHINES WIRER-COUN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 Work Phone: [facility] 11-21-2024 10:00-0500 Body weight 92.08 kg Cy Andre OFFICE MACHINES WIRER-COUN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 Work Phone: [facility] 11-21-2024 10:00-0500 Diastolic blood pressure 70 mm[Hg] Cy Andre OFFICE MACHINES WIRER-COUN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 Work Phone: [facility] 11-21-2024 10:00-0500 Heart rate 60 /min Cy Andre OFFICE MACHINES WIRER-COUN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 Work Phone: [facility] 11-21-2024 10:00-0500 SaO2% (BldA) [Mass fraction] 99 % Cy Andre OFFICE MACHINES WIRER-COUN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 Work Phone: [facility] 11-21-2024 10:00-0500 Systolic blood pressure 100 mm[Hg] Cy Andre OFFICE MACHINES WIRER-COUN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 Work Phone: [facility] 07-20-2024 11:09-0400 Body height 170.2 cm Rowan Martinez MD Work Phone: [facility] 07-20-2024 11:09-0400 Body mass index (BMI) [Ratio] 30.06 kg/m2 Rowan Martinez MD Work Phone: [facility] 07-20-2024 11:09-0400 Body weight 87.09 kg Rowan Martinez MD Work Phone: [facility] 07-20-2024 11:09-0400 Diastolic blood pressure 82 mm[Hg] Rowan Martinez MD Work Phone: [facility] 07-20-2024 11:09-0400 Heart rate 62 /min Rowan Martinez MD Work Phone: [facility] 07-20-2024 11:09-0400 Systolic blood pressure 122 mm[Hg] Rowan Martinez MD Work Phone: [facility] 04-18-2024 08:45-0400 Body height 170.2 cm Cale Reese OFFICE MACHINES WIRER-COUN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 Work Phone: [facility] 04-18-2024 08:45-0400 Body mass index (BMI) [Ratio] 28.19 kg/m2 Cale Reese OFFICE MACHINES WIRER-COUN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 Work Phone: [facility] 04-18-2024 08:45-0400 Body weight 81.65 kg Cale Reese OFFICE MACHINES WIRER-COUN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 Work Phone: [facility] 04-18-2024 08:45-0400 Diastolic blood pressure 52 mm[Hg] Cale Reese OFFICE MACHINES WIRER-COUN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 Work Phone: [facility] 04-18-2024 08:45-0400 Heart rate 62 /min Cale Reese OFFICE MACHINES WIRER-COUN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 Work Phone: [facility] 04-18-2024 08:45-0400 SaO2% (BldA) [Mass fraction] 97 % Cale Riveraer OFFICE MACHINES WIRER-COUN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 Work Phone: [facility] 04-18-2024 08:45-0400 Systolic blood pressure 78 mm[Hg] Cale Reese OFFICE MACHINES WIRER-COUN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 Work Phone: [facility] 03-25-2024 06:56-0400 Body height 170.2 cm Cy Jes OFFICE MACHINES WIRER-COUN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 [facility] 03-25-2024 06:56-0400 Body mass index (BMI) [Ratio] 28.04 kg/m2 Cy Jes OFFICE MACHINES WIRER-COUN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 [facility] 03-25-2024 06:56-0400 Body weight 81.19 kg Cy Jes OFFICE MACHINES WIRER-COUN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 [facility] 03-25-2024 06:56-0400 Diastolic blood pressure 68 mm[Hg] Cy Andre OFFICE MACHINES WIRER-COUN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 [facility] 03-25-2024 06:56-0400 Heart rate 58 /min Cy Andre OFFICE MACHINES WIRER-COUN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 Work Phone: [facility] [employer] 03-25-2024 06:56-0400 SaO2% (BldA) [Mass fraction] 97 % Cy Jes OFFICE MACHINES WIRER-COUN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 [facility] 03-25-2024 06:56-0400 Systolic blood pressure 100 mm[Hg] Cy Jes OFFICE MACHINES WIRER-COUN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 Work Phone: [facility] 01-21-2024 12:46-0400 Body height 170.2 cm Cy Andre OFFICE MACHINES WIRER-COUN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 [facility] 01-21-2024 12:46-0400 Body mass index (BMI) [Ratio] 28.13 kg/m2 Cy Jes OFFICE MACHINES WIRER-COUN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 Work Phone: [facility] 01-21-2024 12:46-0400 Body weight 81.47 kg Cy Andre OFFICE MACHINES WIRER-COUN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 Work Phone: [facility] 01-21-2024 12:46-0400 Diastolic blood pressure 68 mm[Hg] Cy Andre OFFICE MACHINES WIRER-COUN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 Work Phone: [facility] 01-21-2024 12:46-0400 Heart rate 62 /min Cy Andre OFFICE MACHINES WIRER-COUN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 Work Phone: [facility] 01-21-2024 12:46-0400 SaO2% (BldA) [Mass fraction] 97 % Cy Henaohart OFFICE MACHINES WIRER-COUN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 Work Phone: [facility] 01-21-2024 12:46-0400 Systolic blood pressure 110 mm[Hg] Cy Jes OFFICE MACHINES WIRER-COUN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 Work Phone: [facility] [employer] Encounters Encounter Date Encounter Type Care Provider Facility Start: 12-21-2024 End: 12-21-2024 Office outpatient visit 25 minutes Rowan Martinez MD Work Phone: [facility] Comment on above: Frequent PVCs (Prima ry Dx); Other sleep apnea; Encounter for monitoring flecainide therapy Start: 11-30-2024 End: 12-03-2024 [facility] Start: 11-28-2024 End: 11-28-2024 Documentation procedure Marybeth Hancock Calin OFFICE MACHINES WIRER-COUN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 Work Phone: [facility] Start: 11-23-2024 ambulatory [facility] Start: 11-21-2024 End: 11-21-2024 Office outpatient visit 25 minutes Cy Andre OFFICE MACHINES WIRER-COUN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 Work Phone: [facility] Comment on above: Paroxysmal ventricul ar tachycardia (CMS-HCC) (Primary Dx); Frequent PVCs Start: 11-21-2024 End: 11-21-2024 ambulatory [facility] Start: 11-18-2024 End: 11-25-2024 Telephone encounter [facility] Comment on above: Rapid Heart Rate Start: 11-17-2024 End: 11-17-2024 Emergency department patient visit [facility] Start: 10-02-2024 End: 10-02-2024 ambulatory [facility] Start: 09-23-2024 End: 09-23-2024 Telephone encounter Halley Kaur RN [facility] Start: 09-21-2024 End: 09-21-2024 ambulatory [facility] Start: 09-14-2024 End: 09-14-2024 Telephone encounter Mel Milan RN [facility] Comment on above: Work Start: 09-04-2024 End: 09-04-2024 [facility] Start: 08-27-2024 End: 08-27-2024 Telephone encounter Maria Guadalupe Arevalo RN [facility] Comment on above: Propanolol Start: 08-26-2024 End: 08-26-2024 Telephone encounter Israel Castorena RN [facility] Comment on above: RTW Start: 08-25-2024 End: 08-26-2024 Refill Maty Osorio RN [facility] Comment on above: med/testing Start: 08-13-2024 End: 08-13-2024 [facility] Start: 07-20-2024 End: 07-20-2024 Telephone encounter Radha Hunt RN [facility] Start: 07-20-2024 End: 07-20-2024 [facility] Start: 07-20-2024 End: 07-20-2024 Office consultation new/estab patient 60 min Rowan Martinez MD Work Phone: [facility] Comment on above: Frequent PVCs (Prima ry Dx); Encounter for monitoring flecainide therapy; Other sleep apnea Start: 05-21-2024 End: 05-21-2024 Telephone encounter Della Tse RN [facility] Comment on above: FMLA Start: 05-12-2024 End: 05-12-2024 ambulatory [facility] Start: 04-18-2024 End: 04-18-2024 ambulatory [facility] Start: 04-18-2024 End: 04-18-2024 [facility]COUN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 Work Phone: [facility] Comment on above: Frequent PVCs (Prima ry Dx); Paroxysmal ventricular tachycardia (CMS-HCC) Start: 04-03-2024 End: 04-03-2024 ambulatory Cheri BRANDON [facility] Start: 03-25-2024 End: 03-25-2024 Telephone encounter Kaitlin Kessler RN [facility] Start: 03-25-2024 End: 03-25-2024 ambulatory [facility] Start: 03-25-2024 End: 03-25-2024 Office outpatient visit 25 minutes Cy Andre OFFICE MACHINES WIRER-COUN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 Work Phone: [facility] Comment on above: Encounter for monito ring flecainide therapy (Primary Dx); Frequent PVCs; Abnormal stress ECG; Chest tightness Start: 03-25-2024 End: 03-25-2024 ambulatory [facility] Start: 03-20-2024 End: 03-20-2024 ambulatory [facility] Start: 03-20-2024 End: 03-20-2024 [facility] Start: 01-22-2024 ambulatory [facility] Start: 01-21-2024 End: 01-21-2024 Office outpatient visit 25 minutes Cy Andre OFFICE MACHINES WIRER-COUN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 Work Phone: [facility] Comment on above: Paroxysmal ventricul ar tachycardia (CMS-HCC) (Primary Dx); Frequent PVCs; Encounter for monitoring flecainide therapy; Other chest pain; Dizziness Start: 01-21-2024 End: 01-21-2024 ambulatory [facility] Start: 01-20-2024 Telephone encounter Shira Solano LPN [facility] Start: 12-16-2023 End: 12-16-2023 ambulatory YARIEL RIVERA Not Available Start: 11-05-2022 End: 11-05-2022 ambulatory CAMILLA GOLD OCHOA Facility:H1 Procedures Date Procedure Procedure Detail Performing Clinician Start: 12-21-2024 Ecg routine ecg w/le ast 12 lds w/i&r Rowan Martinez MD Work Phone: Start: 07-20-2024 Ecg routine ecg w/le ast 12 lds w/i&r Rowan Martinez MD Work Phone: Start: 01-21-2024 Ecg routine ecg w/le ast 12 lds w/i&r Cy Andre OFFICE MACHINES WIRER-COUN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 Work Phone: Start: 01-21-2024 Follow-up visit Follow-up CY ANDRE Start: 12-16-2023 Microscopic observat ion [Identifier] in Cervix by Cyto stain Rowan Martinez MD Work Phone: Start: 11-05-2022 Microscopic observat ion [Identifier] in Cervix by Cyto stain Shira Solano SECURITY FLEX OFFICER Plan of Treatment Date Care Activity Detail Author Start: 12-16-2026 Screening for malignant neoplasm of cervix Pap Smear [facility] Start: 12-21-2025 Adult BMI Screening [facility] Start: 12-21-2025 Tobacco Screening Tobacco Screening [facility] Start: 11-21-2025 Adult BMI Screening Adult [facility] Screening [facility] Start: 11-21-2025 Tobacco Screening Tobacco Screening [facility] Start: 11-05-2025 Screening for malignant neoplasm of cervix Pap Smear [facility] Start: 09-04-2025 Adult BMI Screening Adult BMI Screening [facility] Start: 09-04-2025 Tobacco Screening Tobacco Screening [facility] Start: 07-20-2025 Adult BMI Screening Adult BMI Screening [facility] Start: 07-20-2025 Tobacco Screening Tobacco Screening [facility] Start: 04-18-2025 Adult BMI Screening Adult BMI Screening [facility] Start: 04-18-2025 Tobacco Screening Tobacco Screening [facility] Start: 03-20-2025 Adult BMI Screening Adult BMI Screening [facility] Start: 03-20-2025 Tobacco Screening Tobacco Screening [facility] Start: 01-20-2025 Adult BMI Screening Adult BMI Screening [facility] Start: 01-20-2025 Tobacco Screening Tobacco Screening [facility] Start: 12-21-2024 End: 12-21-2025 Basic metabolic 2000 panel - Serum or Plasma Basic Metabolic Panel Lab Routine Frequent PVCs Expected: 12/21/2024 (Approximate), Expires: 12/21/2025 [facility] Work Phone: Comment on above: Expected: 12/21/2024 (Approximate), Expi res: 12/21/2025 Start: 12-21-2024 End: 12-21-2024 Patient encounter procedure 12/21/2024 12:30 PM EST Office Visit [facility] [address] [place] [address] Rowan Martinez MD [address] [place], [place] [id number] [facility] Start: 11-23-2024 End: 11-23-2024 Professional / ancillary services management 11/23/2024 7:15 AM EST Ancillary Procedure [facility] [address] [facility] [place] [address] [facility] Start: 11-21-2024 End: 11-21-2025 Event Monitor (In Office) Event Monitor (In Office) Cardiac Services Routine Paroxysmal ventricular tachycardia ([facility]) Expected: 11/21/2024, Expires: 11/21/2025 [facility] Work Phone: Comment on above: Expected: 11/21/2024, Expires: Start: 10-02-2024 End: 10-02-2024 Patient encounter procedure 10/02/2024 12:45 PM EST Appointment [facility] [address] [place] [address] [facility] Start: 09-21-2024 End: 09-21-2024 Patient encounter procedure 09/21/2024 10:30 AM EST Appointment [facility] [address] [place] [phone] [facility] Start: 09-15-2024 End: 08-25-2025 Holter monitor study Holter monitor 24-48 hour Cardiac Services Routine Frequent PVCs Expected: 09/15/2024, Expires: 08/25/2025 [facility] Work Phone: Comment on above: Expected: 09/15/2024, Expires: Start: 08-26-2024 End: 08-26-2025 Exercise stress test study Stress test (exercise only) Cardiac Services Routine Frequent PVCs Expected: 08/26/2024, Expires: 08/26/2025 [facility] [employer] Comment on above: Expected: 08/26/2024, Expires: Start: 08-13-2024 End: 08-13-2024 Patient encounter procedure [facility] Start: 08-03-2024 End: 07-20-2025 Holter monitor study Holter monitor 24-48 hour Cardiac Services Routine Frequent PVCs Expected: 08/03/2024 (Approximate), Expires: 07/20/2025 [employer] Work Phone: Comment on above: Expected: 08/03/2024 (Approximate), Expi res: 07/20/2025 Start: 07-20-2024 End: 07-20-2025 Echo complete W/O contrast Echo complete W/O contrast Echocardiography Routine Frequent PVCs Encounter for monitoring flecainide therapy Expected: 07/20/2024, Expires: 07/20/2025 [facility] Comment on above: Expected: 07/20/2024, Expires: Start: 07-20-2024 End: 07-20-2024 Patient encounter procedure 07/20/2024 11:00 AM EDT [facility] [address] [place] [phone] Rowan Martinez MD [address] [place] [address] [facility] Start: 06-21-2024 Influenza vaccination Influenza Vaccine [facility] Start: 05-12-2024 End: 05-12-2024 Patient encounter procedure 05/12/2024 10:30 AM EDT Appointment [facility] [address] [place] [phone] [facility] Start: 04-30-2024 Adult BMI Screening Adult BMI Screening [facility] Start: 04-30-2024 Tobacco Screening Tobacco Screening [facility] Start: 04-18-2024 End: 04-18-2025 Holter monitor study Holter monitor 24-48 hour Cardiac Services Routine Frequent PVCs Expected: 04/18/2024, Expires: 04/18/2025 [facility] Work Phone: Comment on above: Expected: 04/18/2024, Expires: Start: 04-03-2024 End: 04-03-2024 Admission to same day surgery center 04/03/2024 1:30 PM EDT - 04/03/2024 2:30 PM EDT Surgery [facility] Cardiac Cath [address] [place] [address] Cheri England MD [address] [place] [address] Cardiac Invasive [facility] Comment on above: Cardiac Invasive Start: 04-03-2024 Subsequent hospital visit by physician 04/03/2024 1:30 PM EDT Hospital Encounter [facility] - Cardiac Cath [address] [place] [phone] Cheri England MD [address] [place] [address] Abnormal stress test [facility] - Cardiac [facility] Comment on above: Abnormal stress test Start: 03-23-2024 End: 03-23-2024 Patient encounter procedure 03/23/2024 12:00 PM EDT Office Visit [facility] [address] [place] [phone] Cy Andre, OFFICE MACHINES WIRER-COUN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 [address], [place] [phone] [facility] Start: 01-21-2024 End: 01-20-2025 NM Heart Perfusion W stress and W radionuclide IV Nuc stress Lexiscan Cardiac Services Routine Frequent PVCs Other chest pain Dizziness Expected: 01/21/2024, Expires: 01/20/2025 [facility] Comment on above: Expected: 01/21/2024, Expires: Start: 01-21-2024 End: 01-20-2025 Wireless Telemetry (In Office) Wireless Telemetry (In Office) Cardiac Services Routine Frequent PVCs Expected: 01/21/2024, Expires: 01/20/2025 [facility] Work Phone: Comment on above: Expected: 01/21/2024, Expires: Start: 01-21-2024 End: 01-21-2024 Patient encounter procedure 01/21/2024 1:00 PM EDT Office Visit [facility] [address] [place] [phone] Cy Andre, OFFICE MACHINES WIRER-COUN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 [address], [place] [id number] [facility] Start: 2004 DTaP,Tdap and Td Vaccines (1 - Tdap) DTaP,Tdap and Td Vaccines (1 - Tdap) [facility] Start: 2003 Adult BMI Follow Up Plan Adult BMI Follow Up Plan [facility] Start: 1997 Depression Screening Depression Screening [facility] Start: 1985 Tobacco Counseling Tobacco Counseling [facility] End: 03-25-2025 Basic metabolic 2000 panel - Serum or Plasma Basic Metabolic Panel Lab Routine Abnormal stress test 1 Occurrences starting 03/25/2024 until 03/25/2025 [facility] Comment on above: 1 Occurrences starting 03/25/2024 until 03/25/2025 End: 03-25-2025 CBC panel - Blood by Automated count CBC Lab Routine Abnormal stress test 1 Occurrences starting 03/25/2024 until 03/25/2025 [employer] Phone: Comment on above: 1 Occurrences starting 03/25/2024 until 03/25/2025 End: 12-21-2025 Magnesium [Mass/volume] in Serum or Plasma Magnesium Lab Routine Frequent PVCs 1 Occurrences starting 12/21/2024 until 12/21/2025 [place] Comment on above: 1 Occurrences starting 12/21/2024 until 12/21/2025 Payers Date Payer Category Payer Medicaid [id number] 2024 [facility] Man[facility] - Other [facility] [id number] 2022 Medicaid [id number] 2022 Unknown [id number]. [id number] 1985 Unknown [id number] 2.16.840.1.737937.3.579. 2.593 1985 Unknown [id number] 2.16840.1.225245.3.579. 2.1258 1985 Unknown [id number] 2.16840.1.771922.3.579. 2.1285 1985 Unknown [id number] 2.840.1.380764.3.579. 2.1285 1985 Unknown [id number] 2.840.1.515885.3.579. 2.1285 1985 Unknown [id number] 2.840.1.262767.3.579. 2.1285 1985 Unknown [id number] 2.0.1.565555.3.579. 2.1285 1985 Unknown [id number] 2..1.957423.3.579. 2.1285 1985 Unknown [id number] 2.0.1.627864.3.579. 2.1285 1985 Unknown [id number] 2.0.1.590238.3.579. 2.1285 1985 Unknown [id number] 2.840.1.629108.3.579. 2.1285 1985 Unknown [id number] .1.362859.3.579. 2.1285 1985 Unknown [id number] 2.840.1.883538.3.579. 2.1285 1985 Unknown [id number] 2.0.1.223768.3.579. 2.1285 1985 Unknown [id number] .840.1.610804.3.579. 2.1285 1985 Unknown [id number] 2.840.1.302480.3.579. 2.1285 1985 Unknown [id number] 2.840.1.697817.3.579. 2.1286 1985 Unknown [id number] 2.16.840.1.814534.3.579. 2.1286 1985 Unknown [id number] 2.16.840.1.409490.3.579. 2.1286 1985 Unknown [id number] 2.16.840.1.334832.3.579. 2.128 1985 Unknown [id number] 2.16.840.1.919380.3.579. 2.1286 1985 Unknown [id number] 2.16.840.1.857414.3.579. 2.1286 1959 Unknown [id number] Social History Date Type Detail Facility Start: [facility]03-[facility]24 [facility] History of tobacco use Current sm[facility] History of tobacco use Cigarette Smoker P [facility] Start: 04-30-2023 End: 04-03-2024 Tobacco use and exposure Smokeless tobacco non-user [facility] Start: 11-21-2024 End: 12-21-2024 Alcoholic beverage intake Ex-drinker (finding) [facility] Start: 11-20-2020 End: 11-21-2024 History of Social function [facility] Start: 11-20-2020 End: 11-21-2024 Tobacco use panel [facility] Childcare Unknown [facility] Start: 04-30-2023 Tobacco Comment A pack will la [facility] her a week [facility] Start: 1985 Sex assigned at Not on file P [facility] Start: 05-26-2015 Sex Female (finding) [facility] Start: 04-30-2023 End: 03-20-2024 Tobacco smoking status NDIS Occasional tobacco smoker [facility] Start: 03-25-2024 End: 07-20-2024 Alcoholic beverage intake Current drinker of alcohol (finding) [facility] Start: 04-30-2023 Alcohol Comment every once in a while--a couple one time per month [facility] Clinical Notes 01-20-2024 to 12-21-2024 Assessment & Plan Note - Rowan Martinez MD - 12/21/2024 1:16 PM ESTAssessment & Plan Note - Rowan Martinez MD - 12/21/2024 1:16 PM ESTRowan Martinez MD - 12/21/2024 12:30 PM EST Note Date & Type Note Facility 12-21-2024 Evaluation + Plan note Associated Problem(s): Frequent PVCs She just completed cardiac event monitor that she turned it in today we do not have the results of that. On exam today no PVCs however she reports continues to have symptoms of palpitation. She has an appointment with EP at [facility] for further evaluation for possible epicardial PVC ablation that was unsuccessful previously about 14 years ago in [facility]. Next para I told her keep that appointment once I have results of her event monitor will reach out with further recommendation. Patient is on high risk medication (flecainide) that can cause life-threatening arrhythmia, the EKG done to monitor the effect shows appropriate QRS and/or QTC interval. [facility] 12-21-2024 Miscellaneous Notes Associated Problem(s): Frequent PVCs She just completed cardiac event monitor that she turned it in today we do not have the results of that. On exam today no PVCs however she reports continues to have symptoms of palpitation. She has an appointment with EP at [facility] for further evaluation for possible epicardial PVC ablation that was unsuccessful previously about 14 years ago in [facility]. Next para I told her keep that appointment once I have results of her event monitor will reach out with further recommendation. Patient is on high risk medication (flecainide) that can cause life-threatening arrhythmia, the EKG done to monitor the effect shows appropriate QRS and/or QTC interval. Associated Problem(s): Other sleep apnea I educated and counseled the patient the implications of undiagnosed and/or untreated obstructive sleep apnea in short run and in long-term. Patient understands the consequences may include but not limited to sudden cardiac , irreversible right-sided heart failure and ongoing symptoms related to sleep apnea. documented in this encounter [place] 12-21-2024 Evaluation + Plan note Associated Problem(s): Other sleep apnea I educated and counseled the patient the implications of undiagnosed and/or untreated obstructive sleep apnea in short run and in long-term. Patient understands the consequences may include but not limited to sudden cardiac , irreversible right-sided heart failure and ongoing symptoms related to sleep apnea. [facility] History of Presen t illness Narrative Images from the original note were not included. Susie Márquez Date of visit: 12/21/2024 Date of : 1985 Age: 39 y.o. 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 Antony was referred for epicardial PVC ablation in 2010 at [facility] due to epicardial fat is here for follow-up. When I saw her last or end the 1st time in June 2024 she was switched from metoprolol to propranolol/Inderal LA 60 daily in addition to her flecainide 150 mg twice a day. Was referred to Sleep Medicine for evaluation treatment of sleep apnea due to observed occasional apnea spell by her boyfriend. Propranolol was subsequently increased to 80 mg daily PVC burden that was 18% has reduced to 15% underwent routine treadmill stress test that was unremarkable. Now here for follow-up. Continuous for symptoms of palpitation mostly when she lays at night on the left side however during daytime does not feel it. Today at the time of office visit no PVC on the EKG and when I checked the radial pulse almost 1 minute did not notice or feel any irregularity. Remains compliant with the propranolol, flecainide. She never follow through regarding evaluation for sleep apnea, counseled and educated she is going to get an appointment with sleep medicine for further assessment if she does have sleep apnea or not. Past Medical History: Diagnosis Date Asthma Chest pain Other sleep apnea 07/20/2024 Pseudoaneurysm of femoral artery (CMS-HCC) Syncope Ventricular tachycardia (CMS-HCC) Past Surgical History: Procedure Laterality Date CARDIAC ELECTROPHYSIOLOGY STUDY AND ABLATION CARDIAC ELECTROPHYSIOLOGY STUDY AND ABLATION 2010 Cardiac Invasive N/A 04/03/2024 Performed by Cheri England MD at [facility] CARDIAC CATH LABS SECTION Coronary angiogram and left ventricular gram/pressure N/A 04/03/2024 Performed by Cheri England MD at [facility] CARDIAC CATH LABS Allergies Allergen Reactions Diphenhydramine Hcl Facial Swelling Other reaction(s): eyes swellinig Family History Problem Relation Age of Onset No Known Problems Mother No Known Problems Father Social History Socioeconomic History Marital status: Spouse name: Not on file Number of children: Not on file Years of education: Not on file Highest education level: Not on file Occupational History Not on file Tobacco Use Smoking status: Former Types: Cigarettes Smokeless tobacco: Never Tobacco comments: A pack will last her a week Vaping Use Vaping status: Never Used Substance and Sexual Activity Alcohol use: Not Currently Drug use: No Sexual activity: Yes control/protection: Pill Other Topics Concern Caffeine Use Yes Comment: occasional coffee or soda--nothing excessive Social History Narrative Not on file Social Drivers of Health Financial Resource Strain: Not on file Food Insecurity: No Food Insecurity (09/04/2024) Hunger Screening Food Insecurity - Worry: Never True Food Insecurity - Inability: Never True Transportation Needs: Not on file Physical Activity: Not on file Stress: Not on file Social Connections: Not on file Interpersonal Safety: Not on file Housing Instability: Not on file Current Outpatient Medications Medication Sig Dispense Refill aspirin 81 mg Take 1 tablet (81 mg total) by mouth in the morning. 30 tablet 6 propranolol LA (INDERAL LA) 80 mg 24 hr capsule Take 1 capsule (80 mg total) by mouth in the morning. 90 capsule 3 UNABLE TO FIND control: Aurobindo 1 tab at night flecainide (TAMBOCOR) 150 mg tablet Take 1 tablet (150 mg total) by mouth in the morning and 1 tablet (150 mg total) before bedtime. 180 tablet 3 No current facility-administered medications for this visit. Review of Systems Constitutional: Positive for malaise/fatigue. HENT: Negative for nosebleeds. Respiratory: Negative for cough, shortness of breath and wheezing. Hematologic/Lymphatic: Does not bruise/bleed easily. Musculoskeletal: Positive for joint swelling. Negative for joint pain, muscle cramps and muscle weakness. Gastrointestinal: Negative for bloating, abdominal pain, heartburn, nausea and vomiting. Genitourinary: Negative for hematuria. Neurological: Negative for dizziness, headaches, light-headedness and weakness. Psychiatric/Behavioral: Negative for depression. The patient is not nervous/anxious. VITAL SIGNS: BP 110/70 Pulse 62 Ht 170.2 cm (5' 7 ) Wt 90.7 kg (200 lb) BMI 31.32 kg/m Physical Exam Regular rate rhythm, S1 and S2 normal, no murmur rub or gallop. Bilateral equal and symmetric and without rhonchi, rub or wheezing. No peripheral edema CV TESTING HISTORY: ECHO: Echo complete W/O contrast Result Date: 08/13/2024 Left Ventricle: Left ventricle appears normal in size. Systolic function is normal with an ejection fraction of 60-65%. Unable to assess diastolic function due to arrhythmia. Right Ventricle: Right ventricular size appears normal. Systolic function is normal. There is no significant valvular stenosis or regurgitation STRESS: Stress test (exercise only) Result Date: 10/02/2024 Baseline ECG indicates sinus rhythm and non-specific T-wave changes. Arrhythmias during stress: PVC. PVC's were rare. Overall, the patient's functional capacity was below average. The stress ECG was nondiagnostic due to failure to reach target HR. Nuc stress Lexiscan Result Date: 03/20/2024 No ischemic ECG changes with Lexiscan Poor quality study but probably a [id number] amount of anterior lateral ischemia seen Normal LV function Intermediate risk study HOLTER: Holter monitor 24-48 hour Result Date: 09/29/2024 Interpretation: 1. Sinus rhythm with average heart rate of 62 beats per minute. Heart rate 50-93 beats per minute. 2. Frequent PVCs. Bard 15%. One morphology accounted for 99.7% of all PVCs. 3. No PACs/Atrial fibrillation/SVT/pauses/AV block or VT noted. 4. Patient reported symptoms correlated with sinus rhythm with or without PVCs. Holter monitor 24-48 hour Result Date: 08/19/2024 Two day Holter monitor. Primary rhythm sinus rhythm with average heart rate 71 beats per minute. Heart rate ranged between 55-119 beats per minute. High burden PVCs, 18% of total beats. Two different morphologies. Occasional ventricular triplets, transient ventricular bigeminy and trigeminy noted. Multiple triggered events correlating with the patient's sinus rhythm and PVCs, heart rate ranging in the 60s to 90s. Holter monitor 24-48 hour Result Date: 05/19/2024 1. This is a 48 hour Holter monitor. 2. The baseline and prevailing rhythm was sinus rhythm. The heart rate ranging between 47 and 126 beats per minute with an average heart rate of 62 beats per minute. The maximum heart rate was during a an atrial triplet. 3. 1 atrial triplet noted. 4. Frequent monomorphic PVCs sometimes in a bigeminal or trigeminal pattern. The ventricular ectopy burden was 18%. 5. The patient complained of shortness of breath and heart fluttering and feeling tired and fatigued while mostly in sinus rhythm. CARDIAC CATH: No results found. EKG: Normal sinus rhythm heart rate of 62 beats per minute nonspecific ST-T changes IMPRESSIONS/PLAN Problem List Cardiovascular and Mediastinum Frequent PVCs - Primary Overview Outflow tract, PVC ablation [address] [place] [address] Antony at [facility] then was referred to [facility] in 2010 had epicardial PVC ablation attempt. Reportedly was unsuccessful due to epicardial fat. On flecainide for years and metoprolol. Increasing PVC burden recently with high density and frequent symptom, PVC burden showing 18%. Changing metoprolol XL 25 b.i.d. to Inderal LA 60 daily in addition to flecainide 150 mg twice a day, July 20, 2024. Inderal increased to 80 mg daily August 2024 Current Assessment & Plan She just completed cardiac event monitor that she turned it in today we do not have the results of that. On exam today no PVCs however she reports continues to have symptoms of palpitation. She has an appointment with EP at [facility] for further evaluation for possible epicardial PVC ablation that was unsuccessful previously about 14 years ago in [place] at [facility]. Next para I told her keep that appointment once I have results of her event monitor will reach out with further recommendation. Patient is on high risk medication (flecainide) that can cause life-threatening arrhythmia, the EKG done to monitor the effect shows appropriate QRS and/or QTC interval. Relevant Medications flecainide (TAMBOCOR) 150 mg tablet Other Relevant Orders POCT EKG (Completed) Basic Metabolic Panel Magnesium Respiratory Other sleep apnea Current Assessment & Plan I educated and counseled the patient the implications of undiagnosed and/or untreated obstructive sleep apnea in short run and in long-term. Patient understands the consequences may include but not limited to sudden cardiac , irreversible right-sided heart failure and ongoing symptoms related to sleep apnea. Other Encounter for monitoring flecainide therapy 1. Frequent PVCs - POCT EKG - flecainide (TAMBOCOR) 150 mg tablet; Take 1 tablet (150 mg total) by mouth in the morning and 1 tablet (150 mg total) before bedtime. Dispense: 180 tablet; Refill: 3 - Basic Metabolic Panel; Future - Magnesium; Future 2. Other sleep apnea 3. Encounter for monitoring flecainide therapy TODAYS ORDERS Orders Placed This Encounter Procedures Basic Metabolic Panel Magnesium POCT EKG Medications Discontinued During This Encounter Medication Reason flecainide (TAMBOCOR) 150 mg tablet Reorder FOLLOW UP Return in about 1 year (around 12/21/2025). Rowan Martinez MD [facility] Cardiology - Electrophysiology Report prepared via voice recognition software. Although report is reviewed for accuracy prior to finalization, unrecognized typographical errors may be present. Please contact us with any questions regarding report. PCP: RANULFO Padilla Referring Physician: No referring provider defined for this encounter. [facility] Miscellaneous Notes Patient is asking if you would be willing to sign for her to have an intermittent FMLA due to recent complications and the need to call off work. Patient calls back and wanted to state that she would like at least 2 days a week to be included for her FMLA as well as overtime be included in that. For clarification, is this in addition to her previous FMLA paperwork? Like an addendum with additional days off and I am not sure what the term over time is referring to? LM for patient to call off to get additional information regarding FMLA request. Patient returned call and states that she just needs the paperwork to say she can have up to 2 days off a week if needed. Her employer will not give her the paperwork until she has the okay from the provider and then a new form will need filled out. I am okay with additional 2 days off as needed however previous note on the over time I was not sure of. I believe there should be work in progress to get her to be seen by [facility] or [facility] based on insurance for ablation? Referral from Dr. Martinez Called and spoke with patient , who will have her work fax over the paperwork for intermittent FMLA. documented in this encounter [facility] 11-30-2024 Telephone encounter Note Patient is asking if you would be willing to sign for her to have an intermittent FMLA due to recent complications and the need to call off work. [facility] 11-30-2024 Telephone encounter Note Patient calls back and wanted to state that she would like at least 2 days a week to be included for her FMLA as well as overtime be included in that. [facility] 11-30-2024 Telephone encounter Note For clarification, is this in addition to her previous FMLA paperwork? Like an addendum with additional days off and I am not sure what the term over time is referring to? [facility] 11-30-2024 Telephone encounter Note LM for patient to call off to get additional information regarding FMLA request. [facility] 11-30-2024 Telephone encounter Note Patient returned call and states that she just needs the paperwork to say she can have up to 2 days off a week if needed. Her employer will not give her the paperwork until she has the okay from the provider and then a new form will need filled out. [facility] 11-30-2024 Telephone encounter Note I am okay with additional 2 days off as needed however previous note on the over time I was not sure of. I believe there should be work in progress to get her to be seen by [facility] or [facility] based on insurance for ablation? Referral from Dr. Martinez [facility] 11-30-2024 Telephone encounter Note Called and spoke with patient , who will have her work fax over the paperwork for intermittent FMLA. [facility] 11-28-2024 History of Presen t illness Narrative I received a call from [place] that at the patient had 4 beats of ventricular tachycardia with a heart rate of 109 beats per minute it was a patient initiated event, patient had complained of chest pressure FRANCISCO Mahoney 11/28/24 1846 documented in this encounter [facility] 11-21-2024 History of Presen t illness Narrative Susie Márquez Date of visit: 11/21/2024 Date of : 1985 Age: 39 y.o. 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 30 tablet 6 flecainide (TAMBOCOR) 150 mg tablet Take 1 tablet (150 mg total) by mouth in the morning and 1 tablet (150 mg total) before bedtime. 180 tablet 3 UNABLE TO FIND control: Aurobindo 1 tab at night propranolol LA (INDERAL LA) 80 mg 24 hr capsule Take 1 capsule (80 mg total) by mouth in the morning. 90 capsule 3 No current facility-administered medications for this visit. Chief Complaint Patient presents with Follow-up ov increasing heart racing halie w pt Leg Swelling Shortness of Breath History of Present Illness Susie Márquez is a 39-year-old female accompanied with her mother today due to concerns of recent episode of highly symptomatic tachycardia while she was at work. She has a history of high density PVCs with remote ablation 2009: RV OT with repeat epicardial ablation [facility] 2010. He has been chronically on flecainide and previous Toprol for assistance and rhythm suppression. She had heart catheterization last March with nonobstructive findings. EKG in July with preserved EF and trace valvulopathy with no LVH. Holter monitors most recently in September with high burden PVCs at 15%. Patient also had treadmill stress test with reduced burden of PVCs with activity. Pending referral to [facility] based on insurance for evaluation of epicardial PVC RFA Patient states she had attempted go back to work since last visit and states she was having difficulties with energy level. Couple days ago she had extreme shortness of breath stating her heart was racing. She eventually went to the ER later that day though EKGs showing normal sinus rhythm. She states symptoms resolved before completing in test. This was discussed in detail today. States she did not have this symptoms or intensity in the past. After questioning, coordinate for an event monitor to ensure no evidence of ventricular tachycardia. She did not pass out but does said she was extremely exhausted the following day. We also discussed the pending referral to [facility] based on insurance. Pending appointment follow-up with Dr. Martinez in December Past Medical History: Diagnosis Date Asthma Chest pain Other sleep apnea 07/20/2024 Pseudoaneurysm of femoral artery (CMS-HCC) Syncope Ventricular tachycardia (CMS-HCC) No data recorded No data recorded No data recorded Past Surgical History: Procedure Laterality Date CARDIAC ELECTROPHYSIOLOGY STUDY AND ABLATION CARDIAC ELECTROPHYSIOLOGY STUDY AND ABLATION 2010 Cardiac Invasive N/A 04/03/2024 Performed by Cheri England MD at [facility] CARDIAC CATH [facility]S SECTION Coronary angiogram and left ventricular gram/pressure N/A 04/03/2024 Performed by Cheri England MD at [facility] CARDIAC CATH LABS Family History Problem Relation Age of Onset No Known Problems Mother No Known Problems Father Social History Socioeconomic History Marital status: Spouse name: Not on file Number of children: Not on file Years of education: Not on file Highest education level: Not on file Occupational History Not on file Tobacco Use Smoking status: Former Types: Cigarettes Smokeless tobacco: Never Tobacco comments: A pack will last her a week Vaping Use Vaping status: Never Used Substance and Sexual Activity Alcohol use: Not Currently Drug use: No Sexual activity: Yes control/protection: Pill Other Topics Concern Caffeine Use Yes Comment: occasional coffee or soda--nothing excessive Social History Narrative Not on file Social Drivers of Health Financial Resource Strain: Not on file Food Insecurity: No Food Insecurity (09/04/2024) Hunger Screening Food Insecurity - Worry: Never True Food Insecurity - Inability: Never True Transportation Needs: Not on file Physical Activity: Not on file Stress: Not on file Social Connections: Not on file Interpersonal Safety: Not on file Housing Instability: Not on file Review of Systems Review of Systems Constitutional: Positive for malaise/fatigue. HENT: Negative for nosebleeds. Respiratory: Positive for cough (dry occ), shortness of breath and wheezing (occ). Hematologic/Lymphatic: Does not bruise/bleed easily. Musculoskeletal: Negative for joint pain, muscle cramps and muscle weakness. Gastrointestinal: Positive for nausea. Negative for bloating, abdominal pain, constipation, diarrhea, heartburn, hematochezia and vomiting. Genitourinary: Negative for hematuria. Neurological: Positive for headaches and light-headedness (occ). Negative for dizziness. Vascular: Negative for claudication and lower extremity wounds or ulcers. CARDIOVASCULAR: Please review HPI. Physical Examination General [...] mood, memory and judgement. VITAL SIGNS: BP 100/70 Pulse 60 Ht 170.2 cm (5' 7.01 ) Wt 92.1 kg (203 lb) SpO2 99% BMI 31.79 kg/m Orders Placed or Reconciled This Encounter Medications propranolol LA (INDERAL LA) 80 mg 24 hr capsule Sig: Take 1 capsule (80 mg total) by mouth in the morning. Dispense: 90 capsule Refill: 3 Medications Discontinued During This Encounter Medication Reason propranolol LA (INDERAL LA) 80 mg 24 hr capsule Reorder IMPRESSIONS/PLAN 1. Paroxysmal ventricular tachycardia ([facility]) - Event Monitor (In Office); Future 2. Frequent PVCs - propranolol LA (INDERAL LA) 80 mg 24 hr capsule; Take 1 capsule (80 mg total) by mouth in the morning. Dispense: 90 capsule; Refill: 3 1. High density burden PVCs with remote ablation in 2009, 2010. Pending referral to [facility] 2. Tachycardia/exhaustion though no syncope a few days ago. Patient states intensity different than previous palpitations. Thirty day event monitor 3 normal coronary arteries on heart catheterization March 2024 4. Structurally normal heart on echo in July of 2024 5. High risks antiarrhythmic. Maintains flecainide and propanolol. EKG couple days ago with narrow QRS. Stress test EKGs without widening QRS She does have a level of exhaustion though unclear if this is related to inactivity for 6 months verses beta-denise induced. Encourage her to go back to work at this point. Testing to complete follow-up arranged TODAYS ORDERS Orders Placed This Encounter Procedures Event Monitor (In Office) FOLLOW UP Return for Next scheduled follow up with [facility] in december. PCP: RANULFO Padilla Referring Physician: No referring provider defined for this encounter. FRANCISCO Wayne 11/21/24 1129 documented in this encounter [facility] 11-18-2024 Miscellaneous Notes Patient calls today - she went to the ER last evening and states they had put her on a monitor for a little bit and informed her things looked okay and she left about a half an hour after arriving. No other testing done. She went to the ER due to feelings of her heart racing more over the past couple weeks but admits she didn't go when she was suffering a bad episode. She started back to work 3 weeks ago - the first week she did 3 days, the following week 3 days but this week was supposed to be her 4 day week but hasn't been able to make it to day 3 yet due to feeling fatigued. She also admits that on week 1 back to work her legs were so swollen her leggings made imprints in her legs and her skin was over her socks - this has since improved some - she is not as swollen. At work she is on her feet most of the time so she is wondering if she had been overdoing it at work. Main complaints: heart racing (especially with exertion, lifting boxes at work, walking up stairs) but it can also occur at rest or wake her up in the night time - chest discomfort. Patient has an appt now on 11/21 with BRENDA FLETCHER to JB in the meantime EKG shows sinus rhythm, Holter monitor to see what the PVC burden is. Refer her to [facility] for PVC ablation or [facility]. The reason I am suggesting [facility] because she has a [place] insurance however if she has [place] insurance [facility]. Reason for referral is PVC ablation. While waiting lets get a Holter monitor. Follow-up PCP after the ER visit. Thank you I can speak to her then though will just refer to Dr. Martinez's recommendations Pt had OV with SER today. Pt would like to go to [facility] for PVC [facility]. [facility] Images from the original note were not included. Confirmed they received the referral from us. They call the pt this am and no answer. Pt will have to call them back to schedule. documented in this encounter [facility] 11-18-2024 Telephone encounter Note Patient calls today - she went to the ER last evening and states they had put her on a monitor for a little bit and informed her things looked okay and she left about a half an hour after arriving. No other testing done. She went to the ER due to feelings of her heart racing more over the past couple weeks but admits she didn't go when she was suffering a bad episode. She started back to work 3 weeks ago - the first week she did 3 days, the following week 3 days but this week was supposed to be her 4 day week but hasn't been able to make it to day 3 yet due to feeling fatigued. She also admits that on week 1 back to work her legs were so swollen her leggings made imprints in her legs and her skin was over her socks - this has since improved some - she is not as swollen. At work she is on her feet most of the time so she is wondering if she had been overdoing it at work. Main complaints: heart racing (especially with exertion, lifting boxes at work, walking up stairs) but it can also occur at rest or wake her up in the night time - chest discomfort. Patient has an appt now on 11/21 with BRENDA FLETCHER to [facility] in the meantime [facility] 11-18-2024 Telephone encounter Note EKG shows sinus rhythm, Holter monitor to see what the PVC burden is. Refer her to [facility] for PVC ablation or [facility]. The reason I am suggesting [facility] [place] [facility] because she has a [place] insurance however if she has [place] insurance [facility]. Reason for referral is PVC ablation. While waiting lets get a Holter monitor. Follow-up PCP after the ER visit. Thank you [facility] 11-18-2024 Telephone encounter Note I can speak to her then though will just refer to Dr. Martinez's recommendations [facility] 11-18-2024 Telephone encounter Note Pt had OV with SER today. Pt would like to go to [facility] for PVC ablation. Referral placed and faxed to [facility]. [facility] 11-18-2024 Telephone encounter Note Images from the original note were not included. [facility] 11-18-2024 Telephone encounter Note Confirmed they received the referral from us. They call the pt this am and no answer. Pt will have to call them back to schedule. [facility] 09-23-2024 Miscellaneous Notes Opened in error documented in this encounter [facility] 09-23-2024 Telephone encounter Note Opened in error [facility] 09-14-2024 Miscellaneous Notes Received call from patient, she states she has paperwork she needs signed by [facility] to remain off work. Patient also states she requires a letter so she can receive food stamps and government benefits. Asvised patient to bring paperwork to front services agent. documented in this encounter [facility] 09-14-2024 Telephone encounter Note Received call from patient, she states she has paperwork she needs signed by [facility] to remain off work. Patient also states she requires a letter so she can receive food stamps and government benefits. Asvised patient to bring paperwork to front services agent. [facility] 08-27-2024 Miscellaneous Notes Pt calling in asking about side effects of increased dose of propanolol. She was wondering if it was normal to have a burning sensation in the right side of her jaw after taking it. Advised pt this is not necessarily a known/common side effect of this medication and to continue to monitor her symptoms and let us know if this continues. Pt reports it has already improved from when she first took her dose this AM. Pt also wondering if she could get lightheaded from the increased dose of propanolol. Security Support Analyst informed pt she may need to adjust to the new dose and if she becomes/continues to be lightheaded to call our office. Pt v/u. documented in this encounter [facility] 08-27-2024 Telephone encounter Note Pt calling in asking about side effects of increased dose of propanolol. She was wondering if it was normal to have a burning sensation in the right side of her jaw after taking it. Advised pt this is not necessarily a known/common side effect of this medication and to continue to monitor her symptoms and let us know if this continues. Pt reports it has already improved from when she first took her dose this AM. Pt also wondering if she could get lightheaded from the increased dose of propanolol. Security Support Analyst informed pt she may need to adjust to the new dose and if she becomes/continues to be lightheaded to call our office. Pt v/u. 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 Pt said that she was told that she had fluid restrictions and her work is having difficulty accommodating her. Security Support Analyst explained that there are lifting restrictions on her returning to work not fluid restrictions. Pt v/u but also said HR needs a very detailed letter for her to return to work to include the followin.) How much weight can she lift? 2.) What pace does pt need to work at? 3.) How long she can stand and how often she needs to take breaks? Security Support Analyst explained that we will need to know her specific work requirements for [employer] to review and advise on this work letter that HR is asking for. Pt v/u and will have her work fax over her work requirements. Images from the original note were not included. August 26, 2024 Rowan Martinez MD to [facility] 08/26/24 10:51 AM Note Continue without holding beta-denise for the stress test Me to MD Nydia Lakhani APRN-COUN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 [facility] 08/26/24 10:17 AM Isrrael -can you please sign the med pended in case JBP doesn't see this before end of the day. Dr Martinez-Do you want inderal held or continue on med for stress test? Also, If you see this before isrrael can you sign pended rx for increased inderal. Thanks Me 08/26/24 10:11 AM Note JBP-Informed pt I will message JBP to clarify if he wants her to continue inderal for the stress test or hold for 24hour? Pt called back to discuss work status, said her work was sending us forms. Informed her we have forms for guardian and will update she will be off until stress test results. Informed her of JBP response for stess as well. She said she has not yet received the increased inderal dose to the pharmacy yet. Rx pended. Placed orders for holter and stress test and msg scheduling to call her to setup testing and f/u appt. 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 Pt said that she was told that she had fluid restrictions and her work is having difficulty accommodating her. Security Support Analyst explained that there are lifting restrictions on her returning to work not fluid restrictions. Pt v/u but also said HR needs a very detailed letter for her to return to work to include the followin.) How much weight can she lift? 2.) What pace does pt need to work at? 3.) How long she can stand and how often she needs to take breaks? Security Support Analyst explained that we will need to know her specific work requirements for [employer] to review and advise on this work letter that HR is asking for. Pt v/u and will have her work fax over her work requirements. [facility] 08-26-2024 Telephone encounter Note Images from the original note were not included. August 26, 2024 Rowan Martinez MD to [facility] 08/26/24 10:51 AM Note Continue without holding beta-denise for the stress test Me to MD Nydia Lakhani APRN-COUN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 Me TM 08/26/24 10:17 AM Isrrael -can you please sign the med pended in case JBP doesn't see this before end of the day. Dr Martinez-Do you want inderal held or continue on med for stress test? Also, If you see this before isrrael can you sign pended rx for increased inderal. Thanks Me TM 08/26/24 10:11 AM Note JBP-Informed pt I will message JBP to clarify if he wants her to continue inderal for the stress test or hold for 24hour? Pt called back to discuss work status, said her work was sending us forms. Informed her we have forms for guardian and will update she will be off until stress test results. Informed her of JBP response for stess as well. She said she has not yet received the increased inderal dose to the pharmacy yet. Rx pended. Placed orders for holter and stress test and msg scheduling to call her to setup testing and f/u appt. [facility] 08-25-2024 Miscellaneous Notes ----- Message from Dr. Rowan Martinez MD sent at 08/25/2024 7:44 AM EST ----- Increase Inderal LA to 80 mg daily, okay to return back to work with light duty avoid heavy objects to lift and move around. Repeat Holter 2-4 weeks after increasing Inderal and follow-up with EP MOUNA or myself discuss further uptitration of Inderal or redo attempt of PVC ablation. Thank you Called patient; informed her of JBPs recommendations, pt v/u and is agreeable to plan. Will message scheduling to check for appts in September, after completion of HM. 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 Message back out to JBP to advise on work. After increase of the Inderal LA to 80 mg daily will also in addition to Holter monitor would like routine treadmill stress test and based on that will provide clearance for return back to work. I certainly hope she will be able to return back to work without any restrictions after that. JBP-Informed pt I will message JBP to clarify if he wants her to continue inderal for the stress test or hold for 24hour? Pt called back to discuss work status, said her work was sending us forms. Informed her we have forms for guardian and will update she will be off until stress test results. Informed her of [facility] response for ste as well. She said she has not yet received the increased inderal dose to the pharmacy yet. Rx pended. Placed orders for holter and stress test and msg scheduling to call her to setup testing and f/u appt. Continue without holding beta-denise for the stress test Called pt with response. Continue on med, dont hold for stress test if the schedulers say refer to your provider in regards to BB we want you to take meds as normal. She v/u. Informed her med was sent to pharmacy and await scheduling to call for testing. [facility] Telephone encounter Note ----- Message from Dr. Rowan Martinez MD sent at 08/25/2024 7:44 AM EST ----- Increase Inderal LA to 80 mg daily, okay to return back to work with light duty avoid heavy objects to lift and move around. Repeat Holter 2-4 weeks after increasing Inderal and follow-up with EP MOUNA or myself discuss further uptitration of Inderal or redo attempt of PVC ablation. Thank you [facility] 08-25-2024 Telephone encounter Note Called patient; informed her of JBPs recommendations, pt v/u and is agreeable to plan. Will message scheduling to check for appts in September, after completion of HM. 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 Message back out to JB to advise on work. [facility] [place] 08-25-2024 Telephone encounter Note After increase of the Inderal LA to 80 mg daily will also in addition to Holter monitor would like routine treadmill stress test and based on that will provide clearance for return back to work. I certainly hope she will be able to return back to work without any restrictions after that. [facility] 08-25-2024 Telephone encounter Note JBP-Informed pt I will message JBP to clarify if he wants her to continue inderal for the stress test or hold for 24hour? Pt called back to discuss work status, said her work was sending us forms. Informed her we have forms for guardian and will update she will be off until stress test results. Informed her of JBP response for stess as well. She said she has not yet received the increased inderal dose to the pharmacy yet. Rx pended. Placed orders for holter and stress test and msg scheduling to call her to setup testing and f/u appt. [facility] 08-25-2024 Telephone encounter Note Continue without holding beta-denise for the stress test [facility] 08-25-2024 Telephone encounter Note Called pt with response. Continue on med, dont hold for stress test if the schedulers say refer to your provider in regards to BB we want you to take meds as normal. She v/u. Informed her med was sent to pharmacy and await scheduling to call for testing. [facility] 07-20-2024 Miscellaneous Notes Pt calls and said she had appt with JBP today and they discussed her being off work. She said he doesn't know when she will be going back to work. She said her short term will be faxing forms to us and a date had to be on there for approx return to work date. She said they put 09/19/24, if she needs longer we can always alter the dates later. She said the form is to keep insurance,job and disability. Informed her based on office visit today his office note, he said Worried about going back to work I told her will see how she does with this change in beta-denise and will see what the Holter shows. Based on the finding of the Holter will reach out to her hence see clinical assessment over the phone if she is feeling better and the PVC burden looks good on the Holter she might be able to go back to work initially on light duty and if she does well then return back to full duty. May require redo ablation based on how she response to the medical therapy changes made and evaluation treatment of sleep apnea. Informed her since the echo and holter is scheduled 08/13/24. Could take a week of so to get the holter results. Informed her once we get the forms if we have questions we will call her back otherwise we will completed the forms when able. Informed her she signed a Simone with guardian and doesn't need to sign with them. But if we get disability from elsewhere and no SIMONE signed then she can come in and sign ours. She v/u. Awaiting forms. [facility] Telephone encounter Note Pt calls and said she had appt with JBP today and they discussed her being off work. She said he doesn't know when she will be going back to work. She said her short term will be faxing forms to us and a date had to be on there for approx return to work date. She said they put 09/19/24, if she needs longer we can always alter the dates later. She said the form is to keep insurance,job and disability. Informed her based on office visit today his office note, he said Worried about going back to work I told her will see how she does with this change in beta-denise and will see what the Holter shows. Based on the finding of the Holter will reach out to her hence see clinical assessment over the phone if she is feeling better and the PVC burden looks good on the Holter she might be able to go back to work initially on light duty and if she does well then return back to full duty. May require redo ablation based on how she response to the medical therapy changes made and evaluation treatment of sleep apnea. Informed her since the echo and holter is scheduled 08/13/24. Could take a week of so to get the holter results. Informed her once we get the forms if we have questions we will call her back otherwise we will completed the forms when able. Informed her she signed a Simone with guardian and doesn't need to sign with them. But if we get disability from elsewhere and no SIMONE signed then she can come in and sign ours. She v/u. [facility] forms[facility] + Plan note Associated Problem(s): Encounter for monitoring flecainide therapy Patient is on high risk medication (flecainide) that can cause life-threatening arrhythmia, the EKG done to monitor the effect shows appropriate QRS and/or QTC interval. [facility] 07-20-2024 Evaluation + Plan note Associated Problem(s): Other sleep apnea Based on what she says quite likely that she has sleep apnea, referring her to Sleep Medicine for evaluation treatment of sleep apnea. [facility] 07-20-2024 Evaluation + Plan note Associated Problem(s): Frequent PVCs Will obtain echocardiogram to rule out any structure abnormality has not had a evaluation in years. Did have symptomatic relief for long time however this year has had increasing PVC burden. Change Toprol to Inderal LA 60 daily. Once this changes made will obtain a 48 hour Holter monitor to see PVC burden. Also would benefit from evaluation treatment sleep apnea if she does have it that may help and reduce the PVC burden. Worried about going back to work I told her will see how she does with this change in beta-denise and will see what the Holter shows. Based on the finding of the Holter will reach out to her hence see clinical assessment over the phone if she is feeling better and the PVC burden looks good on the Holter she might be able to go back to work initially on light duty and if she does well then return back to full duty. May require redo ablation based on how she response to the medical therapy changes made and evaluation treatment of sleep apnea. [facility] 07-20-2024 Miscellaneous Notes Associated Problem(s): Encounter for monitoring flecainide therapy Patient is on high risk medication (flecainide) that can cause life-threatening arrhythmia, the EKG done to monitor the effect shows appropriate QRS and/or QTC interval. Associated Problem(s): Other sleep apnea Based on what she says quite likely that she has sleep apnea, referring her to Sleep Medicine for evaluation treatment of sleep apnea. Associated Problem(s): Frequent PVCs Will obtain echocardiogram to rule out any structure abnormality has not had a evaluation in years. Did have symptomatic relief for long time however this year has had increasing PVC burden. Change Toprol to Inderal LA 60 daily. Once this changes made will obtain a 48 hour Holter monitor to see PVC burden. Also would benefit from evaluation treatment sleep apnea if she does have it that may help and reduce the PVC burden. Worried about going back to work I told her will see how she does with this change in beta-denise and will see what the Holter shows. Based on the finding of the Holter will reach out to her hence see clinical assessment over the phone if she is feeling better and the PVC burden looks good on the Holter she might be able to go back to work initially on light duty and if she does well then return back to full duty. May require redo ablation based on how she response to the medical therapy changes made and evaluation treatment of sleep apnea. documented in this encounter [facility] 07-20-2024 History of Presen t illness Narrative Images from the original note were not included. Susie Márquez Date of visit: 07/20/2024 Date of : 1985 Age: 39 y.o. History of Present Illness New patient referral to EP practice for patient who has had high density of idiopathic PVCs with remote history of PVC ablation in 2009 in OT [address] with [address] Antony and again at [facility] in 2010 was unsuccessful due to epicardial fat. She has not seen any EP physician or provider in many years. On chronic flecainide 150 mg twice a day for years and years and Toprol. She has does not recall ever been tried on nonselective beta-denise such as propranolol or nadolol. Recently has felt more increasing symptoms of PVCs and palpitation with symptoms of skipping, racing, dizziness, lightheadedness, sudden shortness of breath and feel like near-syncope. No personal history of syncope or loss of consciousness no family history of sudden or premature or pacemaker defibrillator. Does not drink excessive caffeine or alcohol. Two cups of caffeinated beverages in a day includes 1 cup of coffee and 1 cup of occasional can of soda/Pepsi. She has noticed waking up at night with apnea spell and her boyfriend who has noted observed occasional apnea spell. Has not had any imaging study such as echocardiogram to rule out any structure abnormalities 2 since 2017. Recently was admitted to the hospital with chest pain underwent stress test that was abnormal that led to cardiac catheterization that did not show coronary disease. Past Medical History: Diagnosis Date Asthma Chest pain Other sleep apnea 07/20/2024 Pseudoaneurysm of femoral artery (CMS-HCC) Syncope Ventricular tachycardia (CMS-HCC) Past Surgical History: Procedure Laterality Date CARDIAC ELECTROPHYSIOLOGY STUDY AND ABLATION CARDIAC ELECTROPHYSIOLOGY STUDY AND ABLATION 2010 Cardiac Invasive N/A 04/03/2024 Performed by Cheri England MD at [facility] CARDIAC CATH LABS SECTION Coronary angiogram and left ventricular gram/pressure N/A 04/03/2024 Performed by Cheri England MD at [facility] CARDIAC CATH LABS Allergies Allergen Reactions Diphenhydramine Hcl Facial Swelling Other reaction(s): eyes swellinig Family History Problem Relation Age of Onset No Known Problems Mother No Known Problems Father Social History Socioeconomic History Marital status: Spouse name: Not on file Number of children: Not on file Years of education: Not on file Highest education level: Not on file Occupational History Not on file Tobacco Use Smoking status: Former Types: Cigarettes Smokeless tobacco: Never Tobacco comments: A pack will last her a week Vaping Use Vaping status: Never Used Substance and Sexual Activity Alcohol use: Yes [...] on file Housing Instability: Not on file Current Outpatient Medications Medication Sig Dispense Refill aspirin 81 mg Take 1 tablet (81 mg total) by mouth in the morning. 30 tablet 6 flecainide (TAMBOCOR) 150 mg tablet Take 1 tablet (150 mg total) by mouth in the morning and 1 tablet (150 mg total) before bedtime. 180 tablet 3 UNABLE TO FIND control: Aurobindo 1 tab at night propranolol LA (INDERAL LA) 60 mg 24 hr capsule Take 1 capsule (60 mg total) by mouth in the morning. 30 capsule 11 No current facility-administered medications for this visit. Review of Systems Constitutional: Positive for malaise/fatigue. HENT: Negative for nosebleeds. Respiratory: Positive for shortness of breath. Negative for cough and wheezing. Hematologic/Lymphatic: Does not bruise/bleed easily. Musculoskeletal: Negative for joint pain, joint swelling, muscle cramps and muscle weakness. Gastrointestinal: Positive for nausea. Negative for bloating, abdominal pain, constipation, diarrhea, heartburn, hematochezia and vomiting. Genitourinary: Negative for hematuria. Neurological: Positive for dizziness and light-headedness. Negative for headaches. VITAL SIGNS: BP 122/82 Pulse 62 Ht 170.2 cm (5' 7.01 ) Wt 87.1 kg (192 lb) BMI 30.06 kg/m Physical Exam Regular rate rhythm, S1 and S2 normal, no murmur rub or gallop. CV TESTING HISTORY: ECHO: No results found. STRESS: Nuc stress Lexiscan Result Date: 03/20/2024 No ischemic ECG changes with Lexiscan Poor quality study but probably a [id number] amount of anterior lateral ischemia seen Normal LV function Intermediate risk study HOLTER: Holter monitor 24-48 hour Result Date: 05/19/2024 1. This is a 48 hour Holter monitor. 2. The baseline and prevailing rhythm was sinus rhythm. The heart rate ranging between 47 and 126 beats per minute with an average heart rate of 62 beats per minute. The maximum heart rate was during a an atrial triplet. 3. 1 atrial triplet noted. 4. Frequent monomorphic PVCs sometimes in a bigeminal or trigeminal pattern. The ventricular ectopy burden was 18%. 5. The patient complained of shortness of breath and heart fluttering and feeling tired and fatigued while mostly in sinus rhythm. CARDIAC CATH: March 2024 Conclusion Impression: 1. Normal epicardial coronary arteries 2. Normal LV systolic function 3. Normal aortic root Recommendations: 1. Follow up with the EP service as an outpatient EKG: Normal sinus rhythm heart rate of 62 beats per minute, borderline nonspecific ST-T changes IMPRESSIONS/PLAN Problem List Cardiovascular and Mediastinum Frequent PVCs - Primary Overview Outflow tract, PVC ablation [address] Antony at [facility] then was referred to [facility] in 2010 had epicardial PVC ablation attempt. Reportedly was unsuccessful due to epicardial fat. On flecainide for years and metoprolol. Increasing PVC burden recently with high density and frequent symptom, PVC burden showing 18%. Changing metoprolol XL 25 b.i.d. to Inderal LA 60 daily, July 20, 2024. Current Assessment & Plan Will obtain echocardiogram to rule out any structure abnormality has not had a evaluation in years. Did have symptomatic relief for long time however this year has had increasing PVC burden. Change Toprol to Inderal LA 60 daily. Once this changes made will obtain a 48 hour Holter monitor to see PVC burden. Also would benefit from evaluation treatment sleep apnea if she does have it that may help and reduce the PVC burden. Worried about going back to work I told her will see how she does with this change in beta-denise and will see what the Holter shows. Based on the finding of the Holter will reach out to her hence see clinical assessment over the phone if she is feeling better and the PVC burden looks good on the Holter she might be able to go back to work initially on light duty and if she does well then return back to full duty. May require redo ablation based on how she response to the medical therapy changes made and evaluation treatment of sleep apnea. Relevant Medications propranolol LA (INDERAL LA) 60 mg 24 hr capsule Other Relevant Orders POCT EKG (Completed) Holter monitor 24-48 hour Echo complete W/O contrast Ambulatory referral to Sleep Medicine Respiratory Other sleep apnea Current Assessment & Plan Based on what she says quite likely that she has sleep apnea, referring her to Sleep Medicine for evaluation treatment of sleep apnea. Relevant Orders Ambulatory referral to Sleep Medicine Other Encounter for monitoring flecainide therapy Current Assessment & Plan Patient is on high risk medication (flecainide) that can cause life-threatening arrhythmia, the EKG done to monitor the effect shows appropriate QRS and/or QTC interval. Relevant Orders Echo complete W/O contrast 1. Frequent PVCs - POCT EKG - propranolol LA (INDERAL LA) 60 mg 24 hr capsule; Take 1 capsule (60 mg total) by mouth in the morning. Dispense: 30 capsule; Refill: 11 - Holter monitor 24-48 hour; Future - Echo complete W/O contrast; Future - Ambulatory referral to Sleep Medicine; Future 2. Encounter for monitoring flecainide therapy - Echo complete W/O contrast; Future 3. Other sleep apnea - Ambulatory referral to Sleep Medicine; Future TODAYS ORDERS Orders Placed This Encounter Procedures Ambulatory referral to Sleep Medicine Holter monitor 24-48 hour POCT EKG Echo complete W/O contrast Medications Discontinued During This Encounter Medication Reason metoprolol succinate XL (TOPROL XL) 50 mg 24 hr tablet nitroglycerin (NITROSTAT) 0.3 MG SL tablet FOLLOW UP Return in about 6 months (around 01/17/2025) for With EP MOUNA. Rowan Martinez MD [facility] Cardiology - Electrophysiology This note was completed using a voice materials coordinator system. Every effort was made to ensure accuracy. However, inadvertent computerized materials coordinator errors may be present. PCP: MAGGIE PITT DO Referring Physician: Maggie Pitt DO [address] [place] [address] documented in this encounter [place] 05-21-2024 Miscellaneous Notes Patient calls and has concerns of working with her PVCs and symptoms. Recent holter showed PVC burden 18%- recently had a heart cath with showed normal coronary arteries. Current symptoms: shortness of breath, palpitations, lightheadedness and chest tightness at times. 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 She says that the working temperature can get up to 120 degrees. She is more symptomatic at work and inquiring if she would be able to be off work with FMLA until at least her appt with JBP in June. Patient saw KHUSHI 04/18/24. Msg to EP service MD to advise I have never seen this patient. I can not make that determination. This request should go to a physician who has seen her in the past. Sent to [facility] There is probably no end in sight to her symptoms and she has had 2 ablations in the past without success. FMLA papers can be filled out I suppose, but that may impact her job prospects. Thank you Patient calls to follow up. Patient advised of [facility] recommendations. Patient states her work is mailing her the documents. Patient advised she can fax them to our office or drop them off in person once she receives them and we will fill them out. Patient V/U. Patient states her work will be calling our office to discuss care. Security Support Analyst advised she will need to sign a release of information for this. Patient states her work will call Saturday so she will come in tomorrow to sign. SIMONE in lead bin for patient. documented in this encounter [place] 05-21-2024 Telephone encounter Note Patient calls and has concerns of working with her PVCs and symptoms. Recent holter showed PVC burden 18%- recently had a heart cath with showed normal coronary arteries. Current symptoms: shortness of breath, palpitations, lightheadedness and chest tightness at times. 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 She says that the working temperature can get up to 120 degrees. She is more symptomatic at work and inquiring if she would be able to be off work with FMLA until at least her appt with JBP in June. Patient saw KHUSHI 04/18/24. Msg to EP service MD to advise [place] 05-21-2024 Telephone encounter Note I have never seen this patient. I can not make that determination. This request should go to a physician who has seen her in the past. [place] Work Phone: 05-21-2024 Telephone encounter Note Sent to [facility] 05-21-2024 Telephone encounter Note There is probably no end in sight to her symptoms and she has had 2 ablations in the past without success. FMLA papers can be filled out I suppose, but that may impact her job prospects. Thank you [facility] 05-21-2024 Telephone encounter Note Patient calls to follow up. Patient advised of [facility] recommendations. Patient states her work is mailing her the documents. Patient advised she can fax them to our office or drop them off in person once she receives them and we will fill them out. Patient V/U. [facility] 05-21-2024 Telephone encounter Note Patient states her work will be calling our office to discuss care. Security Support Analyst advised she will need to sign a release of information for this. Patient states her work will call Saturday so she will come in tomorrow to sign. SIMONE in lead bin for patient. [facility] 04-18-2024 History of Presen t illness Narrative Susie Márquez Date of visit: 04/18/2024 Date of : 1985 Age: 39 y.o. 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 30 tablet 6 flecainide (TAMBOCOR) 150 mg tablet Take 1 tablet (150 mg total) by mouth in the morning and 1 tablet (150 mg total) before bedtime. 180 tablet 3 metoprolol succinate XL (TOPROL XL) 50 mg 24 hr tablet Take 1/2 tablet twice daily 90 tablet 3 UNABLE TO FIND control: Aurobindo 1 tab at night nitroglycerin (NITROSTAT) 0.3 MG SL tablet 1 under the tongue as needed for angina, may repeat q5mins for up three doses (Patient not taking: Reported on 04/18/2024) 30 tablet 11 No current facility-administered medications for this visit. Chief Complaint Patient presents with Follow-up PER MESSAGE FROM THE 04/03/2024 PROCEDURE LIST: PER PKR; PT DCD FROM [facility]TH S/P CATH-PT PER PKR PT NEEDS TO F/U W/EP SERVICES IN 7-10 [id number] w /pt Wound Check Cramping at incision site History of Present Illness Susie Márquez is a 39 yo female with PMH of symptomatic PVCs with 2 prior attempted ablations, VT, preserved LV function, normal coronary anatomy and hypotension. She had prior attempted ablation with Dr Antony in 2009 with RF ablation in RVOT that was not successful, PVC focus was epicardial. Her PVC burden was 29% at that time. In 2010 she had attempted ablation with Dr Barreto at [facility] that was unsuccessful due to epicardial fat. She has been maintained on flecainide since that time. Recently, after switching jobs she noticed increased chest pain, palpitations and shortness of breath. She was in the ED for this in January. MCOT in February revealed PVC burden of 15%, monomorphic. She had an abnormal stress test with subsequent C 04/03/24 which revealed normal coronary anatomy. Today, she tells me symptoms have improved since changing jobs. She was working in a high-stress factory environment with no air conditioning. She currently denies chest pain or palpitations, no dyspnea. Past Medical History: Diagnosis Date Asthma Chest pain Pseudoaneurysm of femoral artery (CMS-HCC) Syncope Ventricular tachycardia (CMS-HCC) No data recorded No data recorded No data recorded Past Surgical History: Procedure Laterality Date CARDIAC ELECTROPHYSIOLOGY STUDY AND ABLATION CARDIAC ELECTROPHYSIOLOGY STUDY AND ABLATION 2010 Cardiac Invasive N/A 04/03/2024 Performed by Cheri England MD at [facility] CARDIAC CATH LABS SECTION Coronary angiogram and left ventricular gram/pressure N/A 04/03/2024 Performed by Cheri England MD at [facility] CARDIAC CATH LABS Family History Problem Relation Age of Onset No Known Problems Mother No Known Problems Father Social History Socioeconomic History Marital status: Spouse name: Not on file Number of children: Not on file Years of education: Not on file Highest education level: Not on file Occupational History Not on file Tobacco Use Smoking status: Former Types: Cigarettes Smokeless tobacco: Never Tobacco comments: A pack will last her a week Vaping Use Vaping status: Never Used Substance and Sexual Activity Alcohol use: Yes [...] Systems Review of Systems Constitutional: Negative for malaise/fatigue. HENT: Negative for nosebleeds. Eyes: Negative for blurred vision and double vision. Respiratory: Negative for cough, shortness of breath and wheezing. Hematologic/Lymphatic: Does not bruise/bleed easily. Musculoskeletal: Negative for joint pain, joint swelling, muscle cramps and muscle weakness. Gastrointestinal: Negative for abdominal pain, heartburn, nausea and vomiting. Genitourinary: Negative for hematuria. Neurological: Positive for headaches. Negative for dizziness, light-headedness and weakness. Psychiatric/Behavioral: Negative for depression. The patient is not nervous/anxious. Vascular: Negative for claudication and lower extremity wounds or ulcers. CARDIOVASCULAR: Please review HPI. Physical Examination General appearance: Alert, oriented and cooperative Skin: Warm and dry to touch. Head: Normocephalic, without obvious abnormality, atraumatic. Eyes: Conjunctivae unremarkable, EOM intact. Neck: No JVD, No carotid bruit. Neck supple, trachea midline. Respiratory: Clear to auscultation bilaterally, no use of accessory muscles. Cardiovascular: RRR with normal S1 and S2 with no murmurs. Gastrointestinal: Soft, non-tender. Musculoskeletal: No peripheral edema. Neurologic: Oriented to time, person and place Psychiatric: Appropriate mood, memory and judgement. VITAL SIGNS: BP (!) 78/52 Pulse 62 Ht 170.2 cm (5' 7.01 ) Wt 81.6 kg (180 lb) LMP 03/03/2024 (Exact Date) SpO2 97% BMI 28.19 kg/m No orders of the defined types were placed in this encounter. There are no discontinued medications. IMPRESSIONS/PLAN 1. Frequent PVCs - Holter monitor 24-48 hour; Future 2. Paroxysmal ventricular tachycardia (CMS-HCC) Frequent symptomatic PVCs LBB morphology with V3 transition 15% burden on MCOT Repeat 48hr holter monitor Attempted ablation 2009 (Dr Antony) Attempted epicardial ablation 2010 (Dr Estevan MILLER) unsuccessful dt epicardial fat Presreved LV function Normal coronary anatomy Hypotension, asymptomatic High risk medication use, flecainide Hx RV free wall VT Patient's symptoms have improved slightly, I am going to repeat a 48hr holter to see if her PVC burden has decreased. If PVC burden remains >12% I would like her to follow up with EP to discuss options, repeat catheter ablation, etc. Continue metoprolol and flecainide, BP has been running low but no reported symptoms. Continue to monitor. Follow up will be arranged once above testing completed. Please send holter monitor results to hi - FRANCISCO Ricketts 04/18/24 9:54 AM Patient was seen when Dr Soares was present and immediately available in office suite. TODAYS ORDERS Orders Placed This Encounter Procedures Holter monitor 24-48 hour FOLLOW UP No follow-ups on file. PCP: MAGGIE PITT DO Referring Physician: Maggie Pitt DO [address] [place] [address] FRANCISCO Ricketts 04/18/24 0954 documented in this encounter [facility] 03-25-2024 Miscellaneous Notes Patient scheduled for cardiac cath on 04/03/24 at 1:30 pm (per pt request) at [facility] with PKR. Patient was informed of all instructions and v/u- see patient instruction sheet scanned under media tab for all instructions. Instructed to complete labs prior to procedure. Order form scanned to chart. No Covid test required at this time. [facility] Tele[facility] encounter Note Patient scheduled for cardiac cath on 04/03/24 at 1:30 pm (per pt request) at [facility] with PKR. Patient was informed of all instructions and v/u- see patient instruction sheet scanned under media tab for all instructions. Instructed to complete labs prior to procedure. Order form scanned to chart. No Covid test required at this time. [facility] 03-25-2024 History of Presen t illness Narrative Susie Márquez Date of visit: 03/25/2024 Date of : 1985 Age: 39 y.o. 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 180 tablet 3 metoprolol succinate XL (TOPROL XL) 50 mg 24 hr tablet Take 1/2 tablet twice daily 90 tablet 3 UNABLE TO FIND control: Aurobindo 1 tab at night aspirin 81 mg Take 1 tablet (81 mg total) by mouth in the morning. 30 tablet 6 nitroglycerin (NITROSTAT) 0.3 MG SL tablet 1 under the tongue as needed for angina, may repeat q5mins for up three doses 30 tablet 11 No current facility-administered medications for this visit. Chief Complaint Patient presents with Follow-up ov-2 mo-scheduled w/pt - discuss cath/ nuc stress 03/20 @[facility] History of Present Illness Susie Márquez is here on follow-up regarding stress test ordered from last office visit due to symptomatic palpitations, chest discomfort and dizziness. Longstanding history of PVCs with remote ablation attempted through [facility] as well as Dr. Antony 2009. Prior echocardiogram in 2017 with preserved EF, no significant valvulopathy. At last visit, due to her symptoms, stress test was completed with [id number] anterior lateral reversible ischemia noted. Discussed with Dr. Childress whom patient has seen before. Recommendations on heart catheterization discussed in detail today. Patient still states that she has intermittent chest tightness more notable at rest . 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 Patient reports family history of coronary disease on both paternal and maternal sides. Patient is compliant to flecainide and metoprolol for her history of PVCs. Holter monitor completed in February 2022 though with high burden of PVCs. She has been on this regimen medicines for quite some time. Based on results of upcoming heart catheterization will determine continuance of flecainide if coronary disease, and if not, patient may benefit from further evaluation for PVC treatment. Would likely complete repeat 24 hour Holter monitor to confirm burden of PVCs. We briefly discussed potential of alternative antiarrhythmics but this is yet to be determined. Past Medical History: Diagnosis Date Asthma Chest pain Pseudoaneurysm of femoral artery (CMS-HCC) Syncope Ventricular tachycardia ([facility]) No data recorded No data recorded No data recorded Past Surgical History: Procedure Laterality Date CARDIAC ELECTROPHYSIOLOGY STUDY AND ABLATION CARDIAC ELECTROPHYSIOLOGY STUDY AND ABLATION 2010 SECTION Family History Problem Relation Age of Onset No Known Problems Mother No Known Problems Father Social History Socioeconomic History Marital status: Spouse name: Not on file Number of children: Not on file Years of education: Not on file Highest education level: Not on file Occupational History Not on file Tobacco Use Smoking status: Some Days Current packs/day: 0.25 Types: Cigarettes Smokeless tobacco: Never Tobacco comments: A pack will last her a week Vaping Use Vaping status: Never Used Substance and Sexual Activity Alcohol use: Yes [...] Review of Systems Review of Systems Constitutional: Positive for malaise/fatigue. Cardiovascular: Negative for chest pain and palpitations. Respiratory: Positive for shortness of breath. Negative for cough and wheezing. Musculoskeletal: Negative for joint pain, joint swelling, muscle cramps and muscle weakness. Gastrointestinal: Positive for heartburn. Negative for bloating, abdominal pain, nausea and vomiting. Genitourinary: Negative for hematuria. Neurological: Negative for dizziness, headaches and light-headedness. Psychiatric/Behavioral: Negative for depression. The patient is not nervous/anxious. Vascular: Negative for claudication and lower extremity wounds or ulcers. CARDIOVASCULAR: Please review HPI. Physical Examination General [...] mood, memory and judgement. VITAL SIGNS: BP 100/68 Pulse 58 Ht 170.2 cm (5' 7 ) Wt 81.2 kg (179 lb) SpO2 97% BMI 28.04 kg/m Orders Placed or Reconciled This Encounter Medications nitroglycerin (NITROSTAT) 0.3 MG SL tablet Si under the tongue as needed for angina, may repeat q5mins for up three doses Dispense: 30 tablet Refill: 11 aspirin 81 mg Sig: Take 1 tablet (81 mg total) by mouth in the morning. Dispense: 30 tablet Refill: 6 There are no discontinued medications. IMPRESSIONS/PLAN 1. Encounter for monitoring flecainide therapy 2. Frequent PVCs - aspirin 81 mg; Take 1 tablet (81 mg total) by mouth in the morning. Dispense: 30 tablet; Refill: 6 3. Abnormal stress ECG - nitroglycerin (NITROSTAT) 0.3 MG SL tablet; 1 under the tongue as needed for angina, may repeat q5mins for up three doses Dispense: 30 tablet; Refill: 11 - aspirin 81 mg; Take 1 tablet (81 mg total) by mouth in the morning. Dispense: 30 tablet; Refill: 6 4. Chest tightness - nitroglycerin (NITROSTAT) 0.3 MG SL tablet; 1 under the tongue as needed for angina, may repeat q5mins for up three doses Dispense: 30 tablet; Refill: 11 - aspirin 81 mg; Take 1 tablet (81 mg total) by mouth in the morning. Dispense: 30 tablet; Refill: 6 1. Symptomatic palpitations, chest tightness. Abnormal stress test. [facility] recommended. 2. Symptomatic high burden PVCs. Remote attempts ablation x2: Dr. Arpan MILLER 2009. She has been on flecainide and beta-denise since. Holter monitor in 2021 with high burden PVCs. Would recommend repeat Holter monitor after results of heart catheterization. . Will complete near future. Would recommend if no abnormal coronary disease findings establishing with procedural EP physician for treatment of PVCs. TODAYS ORDERS No orders of the defined types were placed in this encounter. FOLLOW UP Return for Next scheduled follow up. PCP: MAGGIE PITT DO Referring Physician: Maggie Pitt DO [address] [place] [address] FRANCISCO Wayne 03/25/24 0817 SER order cath, and started on Asprin 81mg, sample given to patient. Patient taken to cath scheduling. Cath nurse to schedule. documented in this encounter [facility] 01-21-2024 History of Presen t illness Narrative Susie Márquez Date of visit: 01/21/2024 Date of : 1985 Age: 38 y.o. 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 She has a longstanding history of PVCs with prior remote ablation attempts initially through [facility] as well as Dr. Antony remotely in 2009. Prior workup including echo in 2016 showing preserved EF, remote cardiac MRI unremarkable for ARVC 2009 Last Holter monitor in 2021 with PVC burden of 15%. 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 Second time this occurred about a month week and a half ago while patient was at work. Due to the nature of the symptoms she was seen at [facility] [facility]. She states she felt lightheaded, dizzy, [...] Discontinued During This Encounter Medication Reason 11/09, , 1 mg-20 mcg (21)/75 mg (7) per [...] Lexiscan; Future 1. Symptomatic palpitations. Seen at [facility] in [place]. Reports of frequent PVCs in mildly elevated though within acceptable limit troponins. Chest discomfort, dizziness, fatigue. Lexiscan stress test. Thirty day monitor. 2. High risks antiarrhythmic. Continues on flecainide 150 mg b.i.d., beta-denise 25 b.i.d. 3. Remote attempts of ablation for PVCs [facility] Dr. Barreto, 2010 Dr. Antony. Reported unsuccessful. Obtained records from [facility] after office visit to be scanned in media section Testing to complete. Follow-up in 2 months Patient seen while Dr. Childress was immediately available in the office suite TODAYS ORDERS Orders Placed This Encounter Procedures Wireless Telemetry (In Office) Nuc stress Lexiscan POCT EKG FOLLOW UP Return in about 2 months (around 03/22/2024) for Next scheduled follow up brenda padilla. PCP: MAGGIE PITT DO Referring Physician: Maggie Pitt DO [address] [place] [address] FRANCISCO Wayne 01/21/24 1411 documented in this encounter [facility] 01-20-2024 Miscellaneous Notes Left message for patient to remind them to bring their most current medication list with them to their appointment. documented in this encounter [facility] 01-20-2024 Telephone encounter Note Left message for patient to remind them to bring their most current medication list with them to their appointment. [facility] Evaluation note Diagnosis Frequent PVCs- Primary Encounter for monitoring flecainide therapy Other sleep apnea Paroxysmal ventricular tachycardia (CMS-HCC)- Primary Paroxysmal ventricular tachycardia Frequent PVCs [facility] Diagnosis Frequent PVCs- Primary Encounter for monitoring flecainide therapy Other sleep apnea Frequent PVCs- Primary Paroxysmal ventricular tachycardia (CMS-HCC) Paroxysmal ventricular tachycardia documented [facility]* Diagnosis Abnormal stress test- Primary Other nonspecific abnormal cardiovascular system function study Abnormal stress test- Primary Other nonspecific abnormal cardiovascular system function study Abnormal stress test Other nonspecific abnormal cardiovascular system function study documented in this encounter [facility]* Diagnosis Encounter for monitoring flecainide therapy- Primary Frequent PVCs Abnormal stress ECG Chest tightness Other chest pain Abnormal stress test- Primary Other nonspecific abnormal cardiovascular system function study Abnormal stress test Other nonspecific abnormal cardiovascular system function study documented in this encounter [facility]* Diagnosis Frequent PVCs- Primary Paroxysmal ventricular tachycardia (CMS-HCC) Paroxysmal ventricular tachycardia documented in [facility] Diagnosis Paroxysmal ventricular tachycardia (CMS-HCC)- Primary Paroxysmal ventricular tachycardia Frequent PVCs Encounter for monitoring flecainide therapy Other chest pain Dizziness Dizziness and giddiness documented in this encounter [facility]* Diagnosis Frequent PVCs- Primary Encounter for monitoring flecainide therapy Other sleep apnea documented in this encounter [facility]* Diagnosis Frequent PVCs- Primary Encounter for monitoring flecainide therapy Other sleep apnea Frequent PVCs- Primary documented in this encounter [facility]* Diagnosis Frequent PVCs- Primary Encounter for monitoring flecainide therapy Other sleep apnea Frequent PVCs- Primary Other sleep apnea Encounter for monitoring flecainide therapy [facility] filedocumented in this encounter [facility] filedocumented in this encounter [facility] filedocumented in this encounter [facility] filedocumented in this encounter [facility] filedocumented in this encounter [facility] filedocumented in this encounter [facility] on filedocumented in this encounter [facility] on filedocumented in this encounter [facility] filedocumented in this encounter [facility] on filedocumented in this encounter [facility] on filedocumented in this encounter [facility] (narrative)* Consultation (Routine) - Pending Review Specialty Diagnoses / Procedures Referred By Michele mcrae Referred To Contact Pulmonary Medicine Diagnoses Frequent PVCs Other sleep apnea Rowan Martinez MD [address] [place] [address] Zz Do Not Use Pcj Pulm Sleep Med [address] [address] Referral ID Status Reason Start Date Expiration Date Visits Requested Visits Authorized [id number] Pending Review Specialty Services Required 07/20/2024 07/20/2025 1 1 * Cardiology (Routine) - Pending Review Specialty Diagnoses / Procedures Referred By Michele mcrae Referred To Contact Diagnoses Frequent PVCs Encounter for monitoring flecainide therapy Procedures Echo complete W/O contrast Rowan Martinez MD [address] [place] [address] [place] [id number] [place] [address] Phone: [phone] Referral ID Status Reason Start Date Expiration Date V isits Requested Visits Authorized [id number] Pending Review 07/20/2024 07/20/2025 1 1 * Cardiology (Routine) - Pending Review Specialty Diagnoses / Procedures Referred By Contac t Referred To Contact Diagnoses Frequent PVCs Procedures Holter monitor 24-48 hour Rowan Martinez MD [address] [place] [address] [facility] [address] [place] [address] Phone: [phone] Referral ID Status Reason Start Date Expiration Date V isits Requested Visits Authorized [id number] Pending Review 07/20/2024 07/20/2025 1 1 [facility] Summary Purpose Family History No Family History Records FoundNo Family History Records FoundNo Family History Records FoundNo Family History Records Found Advance Directives No Advanced Directives Records FoundNo Advanced Directives Records FoundNo Advanced Directives Records FoundNo Advanced Directives Records Found Reason for Referral Specialty Diagnoses / Procedures Referred By Contac t Referred To Contact Diagnoses Frequent PVCs Procedures Holter monitor 24-48 hour Cale Reese [employer]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 [address] [place] [address] Referral ID Status Reason Start Date Expiration Date V isits Requested Visits Authorized [id number] Pending Review 04/18/2024 04/18/2025 1 1 Specialty Diagnoses / Procedures Referred By Contac t Referred To Contact Diagnoses Frequent PVCs Other chest pain Dizziness Procedures Nuc stress Lexiscan Cy Andre, [employer]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 [address] [place] [address] Referral ID Status Reason Start Date Expiration Date V isits Requested Visits Authorized [id number] Pending Review 01/21/2024 01/20/2025 5 5 Specialty Diagnoses / Procedures Referred By Contac t Referred To Contact Diagnoses Frequent PVCs Procedures Wireless Telemetry (In Office) Cy Andre [employer]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 [address] [place] [address] Referral ID Status Reason Start Date Expiration Date V isits Requested Visits Authorized [id number] Pending Review 01/21/2024 01/20/2025 1 1 Additional Source Comments INFORMATION SOURCE (unrecogn ized section and content) DATE CREATED AUTHOR 11/06/2022 [facility] DATE CREATED AUTHOR AUTHOR'S ORGANIZ ATION 12/27/2023 [facility] EP[facility] DATE CREATED AUTHOR AUTHOR'S ORGANIZ ATION 11/19/2024 [facility] DATE CREATED AUTHOR AUTHOR'S ORGANIZ ATION 11/24/2024 [facility] Reason for Visit (unrecogniz ed section and content) Reason Comments Follow-up ov increasing heart racing halie w pt Leg Swelling Shortness of Breath Reason Onset Date Comments Rapid Heart Rate 11/18/2024 Reason Comments Follow-up ov-2 mo-scheduled w/ pt - discuss cath/ nuc stress 03/20 @[facility] Reason Comments Follow-up PER MESSAGE FROM THE 04/03/2024 PROCEDURE LIST: PER PKR; PT DCD FROM [facility] S/P CATH-PT PER PKR PT NEEDS TO F/U W/EP SERVICES IN 7-10 [id number] w /pt Wound Check Cramping at incision site Reason Onset Date Comments FMLA 05/21/2024 Reason Comments Follow-up ov d/c [facility] PVC' s halie w pt Reason Comments New Patient ep [id number] ref-scheduled w/pt-per allan p Reason Onset Date Comments RTW 08/26/2024 Reason Onset Date Comments med/testing 08/25/2024 Reason Onset Date Comments Propanolol 08/27/2024 Reason Onset Date Comments Work 09/14/2024 Reason Comments Follow-up 6 month ov-ls Care Teams (unrecognized sec tion and content) Choir Member Relationship Specialty Start Date End Date [facility] [address] [place] PCP - General Family Medicine 09/04/24 Choir Member Relationship Specialty Start Date End Date [facility] [address] [place] PCP - General Family Medicine 09/04/24 Choir Member Relationship Specialty Start Date End Date [facility] [address] [place] PCP - General Family Medicine 09/04/24 Choir Member Relationship Specialty Start Date End Date [facility] [address] [place] PCP - General Family Medicine 09/04/24 Choir Member Relationship Specialty Start Date End Date Maggie Pitt DO [address] [place] [address] PCP - General Family Medicine 11/23/22 Choir Member Relationship Specialty Start Date End Date Maggie Pitt DO [address] [place] [address] PCP - General Family Medicine 11/23/22 Choir Member Relationship Specialty Start Date End Date Maggie Pitt DO [address] [facility] [address] PCP - General Family Medicine 11/23/22 Choir Member Relationship Specialty Start Date End Date Maggie Pitt DO [address] [place] [address] PCP - General Family Medicine 11/23/22 Choir Member Relationship Specialty Start Date End Date Maggie Pitt DO [address] [facility] [facility] [address] PCP - General Family Medicine 11/23/22 Choir Member Relationship Specialty Start Date End Date Maggie Pitt DO [address] [place] [address] PCP - General Family Medicine 11/23/22 Choir Member Relationship Specialty Start Date End Date Maggie Pitt DO [address] [place] [address] PCP - General Family Medicine 11/23/22 Choir Member Relationship Specialty Start Date End Date Maggie Pitt DO [address] [place] [address] PCP - General Family Medicine 11/23/22 Choir Member Relationship Specialty Start Date End Date Maggie Pitt DO [address] [place] [address] PCP - [facility] 11/23/22 Choir Member Relationship Specialty Start Date End [facility] [address] [place] PCP General Family Medicine 09/04/24 Choir Member Relationship Specialty Start Date End [facility] [address] [place] PCP General Family Medicine 09/04/24 Choir Member Relationship Specialty Start Date End [facility] [address] [place] PCP - General Family Medicine 09/04/24 FOR RECORDS PERTAINING TO PATIENTS WHO ARE [...] BE BASED ON THE PRIMARY CLINICAL RECORDS. [facility] [employer] [facility]. provides no warranty or guarantee of the accuracy or completeness of information in this document.
[2024-12-27 06:38] LABS: Age Gdln ACOG Testing Note (.); HPV Aptima Negative (Negative); IGP, Aptima HPV, rfx 16/18,45 Note (.)
== END 2024-12-22 18:30 | disposition home or self-care (01) ==
LOC: LAB 18:29
PROVIDERS: Visit Provider Obstetrics & Gynecology
DX: Z01.419 Encounter for gynecological examination (general) (routine) without abnormal findings (principal)
CPT/HCPCS: 87624; 88175